=== PATIENT | female | born 1965 | race Caucasian/White ===

== ENCOUNTER 2020-01-14 11:15 | Inpatient (IN) | payer BC, OTHER ==
[~2020-01-14] VITALS: Ht 162.5 cm; Wt 87.5 kg
--- OUTSIDE RECORDS SUMMARY | 2020-01-14 11:21 | XMS REPORT ---
Author Author Su Joy Organization [facility] Address [address] [place], [place] [id number] Care Team Providers Care Inspector And Sorter Name Role Phone Jose Elias Joy PCP SHERITA CORRAL PreferredProvider Allergies and Adverse Reactions Name Reaction Notes Vicodin nausea/vomting Plan of Treatment Planned Activity Comments Planned Date Planned Time Plan/Goal WBC STOOL 05/13/2018 12:00 AM Mammogram, screening, bilateral 05/27/2018 12:00 AM Mammogram, screening, digital with billie 06/19/2019 1 2:00 AM Amylase and lipase panel 09/15/2019 12:00 AM Amylase and lipase panel 09/15/2019 12:00 AM GI PANEL 09/15/2019 12:00 AM Urine culture and sensitivity 09/15/2019 12:00 AM Medications Active Name Start Date Estimated Completion Date SIG Co mments cyclobenzaprine 10 mg oral tablet take 1 tablet (10 mg) by oral route 2 times per day methotrexate sodium 2.5 mg oral tablet TA KE 6 tabs once weekly Zebeta 10 mg oral tablet take 1 tablet (1 0 mg) by oral route once daily losartan 25 mg oral tablet take 1 tablet (25 mg) by oral route once daily Plaquenil 200 mg oral tablet folic acid 1 mg oral tablet take 1 tablet (1 mg) by oral route once daily Protonix 40 mg oral tablet,delayed release (DR/EC) take 1 tablet (40 mg) by oral route once daily hydrochlorothiazide 12.5 mg oral tablet take 1 tablet (12.5 mg) by oral route once daily potassium chloride 10 mEq oral capsule, extended release take 1 capsule (10 meq) by oral route once daily with food with furosemide Enbrel SureClick 50 mg/mL (1 mL) subcutaneous pen injector inject 1 milliliter (50 mg) by subcutaneous route once weekly dicyclomine 20 mg oral tablet 10/04/2019 05/01/2020 ta ke 1 tablet (20 mg) by oral route 4 times per day for 30 days ondansetron 8 mg oral tablet,disintegrating dissolve 1 tablet by oral route every 6 hours as needed for nausea Xofluza 40 mg oral tablet 10/27/2019 take 2 tablets (80 mg) by oral route once alprazolam 0.25 mg oral tablet 11/07/2019 TAKE ONE T ABLET BY MOUTH TWICE DAILY Percocet 5-325 mg oral tablet 11/21/2019 ta ke 1 tablet by oral route every 6 hours as needed for 30 days clonazepam 0.5 mg oral tablet 12/19/2019 1/2 to 1 BI D PRN anxiety Name Start Date Expiration Date SIG Comments naproxen 500 mg oral tablet take 1 tablet by oral route folic acid 20 mg oral capsule take 2 caps ules by oral route daily Percocet 5-325 mg oral tablet 04/19/2014 ta ke 1 - 2 tablets by oral route every 4-6 hours as needed Macrodantin 50 mg oral capsule 09/11/2014 09/18/2014 t cyndi 1 capsule by oral route 3 times a day for 7 days Zithromax Z-Rodney 250 mg oral tablet 09/17/2014 09/22/2014 take 2 tablets (500 mg) by oral route once daily for 1 day then 1 tablet (250 mg) by oral route once daily for 4 days Protonix 20 mg oral tablet,delayed release (DR/EC) take 2 tablets (40 mg) by oral route once daily Zithromax Z-Rodney 250 mg oral tablet 08/11/2016 08/16/2016 take 2 tablets (500 mg) by oral route once daily for 1 day then 1 tablet (250 mg) by oral route once daily for 4 days Medrol (Rodney) 4 mg oral tablets,dose pack 08/11/2016 016 take as directed for 5 days Percocet 7.5-325 mg oral tablet 10/16/2016 take 1 tablet by oral route Q6H PRN pain amitriptyline 50 mg oral tablet 03/25/2017 TAKE 1 TABLET BY ORAL ROUTE EVERY DAY AT BEDTIME fluticasone 50 mcg/actuation nasal spray,suspension 07/07/2017 inhale 1 spray (50 mcg) in each nostril by intranasal route 2 times per day fluconazole 150 mg oral tablet 12/30/2017 t cyndi one tablet today and one tablet in 7 days Xanax 0.5 mg oral tablet 03/30/2018 take 0. 5 tablet by oral route 2 times a day Bactroban Nasal 2 % nasal ointment 03/29/2018 apply one-half of the ointment from the tube into each nostril by topical route 2 times per day in the morning and evening furosemide 40 mg oral tablet take 1 table t (40 mg) by oral route once daily Probiotic 15 billion cell oral capsule 04/26/2018 05/26/2018 take 1 capsule by oral route 2 times a day for 30 days Xifaxan 550 mg oral tablet 05/12/2018 05/26/2018 take 1 tablet (550 mg) by oral route 3 times per day for 14 days sulfasalazine 500 mg oral tablet 06/24/2018 TAKE ONE TABLET BY MOUTH FOUR TIMES DAILY FOR SIX WEEKS alprazolam 0.5 mg oral tablet 09/21/2018 TAKE 1/2 TA BLET BY MOUTH TWICE DAILY Percocet 5-325 mg oral tablet 06/26/2019 07/26/2019 ta ke 1 tablet by oral route every 6 hours as needed for 30 days alosetron 1 mg oral tablet take 1 tablet (1 mg) by oral route 2 times per day Cipro 250 mg oral tablet 09/15/2019 09/29/2019 take 1 tablet (250 mg) by oral route every 12 hours for 14 days Flagyl 500 mg oral tablet 09/15/2019 09/29/2019 take 1 tablet (500 mg) by oral route 3 times per day for 14 days Entocort EC 3 mg oral capsule,delayed,extend.release 10/04/2019 01/02/2020 take 1 by oral route 3 times a day for 90 days Lomotil 2.5-0.025 mg oral tablet 10/04/2019 01/02/2020 take 2 tablets by oral route 4 times a day for 15 days Discontinued Name Start Date Discontinued Date SIG Comments Enbrel 50 mg/mL (0.98 mL) subcutaneous syringe inject 1 milliliter (50 mg) by subcutaneous route once weekly pantoprazole 40 mg oral tablet,delayed release (DR/EC) 06/11/2015 take 1 tablet (40 mg) by oral route once daily Zofran (as hydrochloride) 8 mg oral tablet 04/19/20142014 take 1 tablet by oral route Q6 prn nausea promethazine-codeine 6.25-10 mg/5 mL oral syrup 09/17/2014 06/11/2015 take 5 milliliters by oral route every 4 hours as needed, not to exceed 30 mL in 24 hours Problem List Description Status Onset Arthritis unspecified Active Constipation Active dysphagia Active Fibromyalgia Active Hypercholesterolemia Active Rheumatoid arthritis, involving unspecif ied site, unspecified rheumatoid factor presence Active 11/02/2017 Lumbar disc disease Active 11/02/2017 Nephrolithiasis Active 11/02/2017 Fibromuscular dysplasia Active 11/02/2017 Essential hypertension Active 04/20/2018 Colitis Active 04/26/2018 Irritable bowel syndrome with diarrhea Active 0 05/12/2018 Sebaceous cyst Active 07/26/2018 Inflammatory bowel disease Active 07/26/2018 Arthralgia, unspecified joint Active 11/22/2019 Vital Signs Date Time BP-Sys(mm[Hg] BP-Chery(mm[Hg]) HR(bpm) RR(rpm) Temp WT HT HC BMI BSA BMI Percentile O2 Sat(%) 12/26/2019 2:27:00 PM 138 mm[Hg] 88 mm[Hg] 77 {beats}/min 16 rpm 100.8 F 192.187 lbs 64 in 32.9886 kg/m2 1.984 m2 99 % 12/11/2019 10:36:00 AM 138 mm[Hg] 76 mm[Hg] 77 {beats}/min 16 rpm 98.1 F 204 lbs 64 in 35.02 kg/m2 2.04 m2 96 % 11/21/2019 4:02:00 PM 128 mm[Hg] 64 mm[Hg] 68 {beats}/min 16 rpm 98.4 F 204 lbs 98 % 10/27/2019 8:33:00 AM 132 mm[Hg] 88 mm[Hg] 83 {beats}/min 17 rpm 99.5 F 201 lbs 64 in 34.5012 kg/m2 2.029 m2 97 % 10/04/2019 12:42:00 PM 128 mm[Hg] 71 mm[Hg] 58 {beats}/min 20 rpm 97.2 F 203.5 lbs 64 in 34.9303 kg/m2 2.04 m2 09/15/2019 10:00:00 AM 136 mm[Hg] 74 mm[Hg] 70 {beats}/min 20 rpm 98.8 F 203.25 lbs 64 in 34.89 kg/m2 2.0404 m2 98 % 04/28/2019 3:16:00 PM 142 mm[Hg] 80 mm[Hg] 04/27/2019 8:33:00 AM 154 mm[Hg] 86 mm[Hg] 75 {beats}/min 18 rpm 99 F 209 lbs 64 in 35.87 kg/m2 2.069 m2 99 % 02/28/2019 10:52:00 AM 104 mm[Hg] 70 mm[Hg] 86 {beats}/min 18 rpm 98.1 F 205 lbs 64 in 35.1878 kg/m2 2.05 m2 98 % 02/24/2019 7:24:00 AM 126 mm[Hg] 70 mm[Hg] 78 {beats}/min 18 rpm 98.2 F 207 lbs 64 in 35.53 kg/m2 2.0591 m2 98 % 01/12/2019 1:33:00 PM 122 mm[Hg] 80 mm[Hg] 78 {beats}/min 18 rpm 97.4 F 204 lbs 98 % 08/09/2018 3:53:00 PM 126 mm[Hg] 76 mm[Hg] 62 {beats}/min 20 rpm 98.1 F 204 lbs 64 in 35.0162 kg/m2 2.0441 m2 07/28/2018 1:42:00 PM 126 mm[Hg] 76 mm[Hg] 62 {beats}/min 20 rpm 98.1 F 204.5 lbs 64 in 35.10 kg/m2 2.05 m2 07/26/2018 11:56:00 AM 126 mm[Hg] 76 mm[Hg] 62 {beats}/min 20 rpm 98.1 F 204.5 lbs 64 in 35.102 kg/m2 2.0466 m2 06/03/2018 10:16:00 AM 112 mm[Hg] 62 mm[Hg] 64 {beats}/min 20 rpm 97.2 F 209 lbs 64 in 35.87 kg/m2 2.07 m2 05/09/2018 2:53:00 PM 110 mm[Hg] 68 mm[Hg] 58 {beats}/min 18 rpm 98.2 F 212 lbs 64 in 36.3893 kg/m2 2.0838 m2 98 % 04/26/2018 12:12:00 PM 112 mm[Hg] 61 mm[Hg] 63 {beats}/min 20 rpm 96.9 F 213.5 lbs 64 in 36.65 kg/m2 2.09 m2 04/19/2018 9:35:00 AM 124 mm[Hg] 76 mm[Hg] 84 {beats}/min 18 rpm 98.4 F 215 lbs 64 in 36.9043 kg/m2 2.0985 m2 98 % 04/12/2018 4:07:00 PM 99 mm[Hg] 60 mm[Hg] 70 {beats}/min 18 rpm 97.9 F 216 lbs 98 % 03/25/2018 9:12:00 AM 122 mm[Hg] 80 mm[Hg] 69 {beats}/min 18 rpm 98.1 F 215 lbs 60 in 41.9889 kg/m2 2.0319 m2 98 % 10/26/2017 11:09:00 AM 136 mm[Hg] 78 mm[Hg] 78 {beats}/min 18 rpm 21 7 lbs 64 in 37.25 kg/m2 2.11 m2 98 % 07/05/2017 3:55:00 PM 128 mm[Hg] 80 mm[Hg] 60 {beats}/min 16 rpm 98 F 220 lbs 64 in 37.7625 kg/m2 2.1228 m2 98 % 04/29/2016 8:42:00 AM 132 mm[Hg] 80 mm[Hg] 78 {beats}/min 18 rpm 97.4 F 223 lbs 63 in 39.50 kg/m2 2.12 m2 99 % 04/23/2016 10:00:00 AM 125 mm[Hg] 78 mm[Hg] 68 {beats}/min 16 rpm 96.9 F 220 lbs 63 in 38.9709 kg/m2 2.1061 m2 96 % 11/12/2015 2:33:00 PM 125 mm[Hg] 72 mm[Hg] 80 {beats}/min 16 rpm 97.1 F 232 lbs 64 in 39.82 kg/m2 2.18 m2 100 % 09/27/2015 11:18:00 AM 138 mm[Hg] 80 mm[Hg] 74 {beats}/min 18 rpm 97.5 F 227 lbs 64 in 38.9641 kg/m2 2.1563 m2 99 % 06/11/2015 3:19:00 PM 115 mm[Hg] 68 mm[Hg] 86 {beats}/min 18 rpm 97.9 F 225 lbs 63 in 39.86 kg/m2 2.13 m2 96 % 09/10/2014 3:27:00 PM 140 mm[Hg] 80 mm[Hg] 94 {beats}/min 22 rpm 98.6 F 220 lbs 64 in 37.7625 kg/m2 2.1228 m2 99 % 04/19/2014 9:21:00 AM 150 mm[Hg] 80 mm[Hg] 88 {beats}/min 20 rpm 98.1 F 217 lbs 64 in 37.25 kg/m2 2.11 m2 97 % 04/16/2014 11:06:00 AM 138 mm[Hg] 82 mm[Hg] 99 {beats}/min 18 rpm 98.3 F 217 lbs 64 in 37.2476 kg/m2 2.1082 m2 98 % Social History Name Description Comments denies alcohol use Tobacco Former smoker smoked for 30 years, stopped smoking in 2010 12th Grade Exercises regularly Alcohol Never History of Procedures Date Ordered Description Order Status 04/23/2016 12:00 AM Decadron, Per 1 Mg [facility]# [id number] Re viewed 04/23/2016 12:00 AM Toradol 60 Mg [facility]#9563-4102-03 Reviewed 05/04/2016 12:00 AM MRI LUMBAR SPINE W/O DYE Returned 07/07/2017 12:00 AM REMOVE IMPACTED EAR WAX UNI Reviewed 10/26/2017 12:00 AM Decadron 8mg Injection Reviewed 10/26/2017 12:00 AM Depo-Medrol 80mg Injection Reviewed 11/02/2017 12:00 AM Toradol 60 Mg Injection Reviewed 10/26/2017 12:00 AM THER/PROPH/DIAG INJ SC/IM Reviewed 04/19/2018 12:00 AM COMPLETE CBC W/AUTO DIFF WBC Returned 04/19/2018 12:00 AM COMPREHEN METABOLIC PANEL Returned 04/19/2018 12:00 AM ROUTINE VENIPUNCTURE Reviewed 05/13/2018 12:00 AM OVA AND PARASITES SMEARS Returned 05/13/2018 12:00 AM CLOSTRIDIUM AG EIA Reviewed 06/03/2018 12:00 AM Inflammatory Bowel Disease Profile Revie wed 06/03/2018 12:00 AM IMMUNOASSAY NONANTIBODY Reviewed 01/12/2019 12:00 AM THER/PROPH/DIAG INJ SC/IM Reviewed 01/12/2019 12:00 AM Decadron 8mg Injection Reviewed 01/12/2019 12:00 AM Toradol 60 Mg Injection Reviewed 01/12/2019 12:00 AM Depo-Medrol 80mg Injection Reviewed 02/24/2019 12:00 AM Decadron 8mg Injection Reviewed 02/24/2019 12:00 AM Depo-Medrol 80mg Injection Reviewed 02/24/2019 12:00 AM Toradol 60 Mg Injection Reviewed 02/24/2019 12:00 AM THER/PROPH/DIAG INJ SC/IM Reviewed 02/28/2019 12:00 AM Decadron 8mg Injection Reviewed 02/28/2019 12:00 AM Depo-Medrol 80mg Injection Reviewed 02/28/2019 12:00 AM Toradol 60 Mg Injection Reviewed 03/15/2019 12:00 AM THER/PROPH/DIAG INJ SC/IM Reviewed 04/27/2019 12:00 AM Toradol 60 Mg Injection Reviewed 04/27/2019 12:00 AM THER/PROPH/DIAG INJ SC/IM Reviewed 09/15/2019 12:00 AM X-RAY EXAM OF ABDOMEN Reviewed 09/15/2019 12:00 AM COMPLETE CBC W/AUTO DIFF WBC Reviewed 09/15/2019 12:00 AM COMPREHEN METABOLIC PANEL Reviewed 09/15/2019 12:00 AM RBC SED RATE AUTOMATED Reviewed 09/15/2019 12:00 AM C-REACTIVE PROTEIN Reviewed 09/18/2019 12:[address] ABD & PELV W/CONTRAST Reviewed 09/18/2019 12:00 AM ASSAY THYROID STIM HORMONE Reviewed 09/18/2019 12:00 AM FREE ASSAY (FT-3) Reviewed 09/18/2019 12:00 AM ASSAY OF FREE THYROXINE Reviewed 11/14/2019 11:35 PM INFLUENZA A/B AG EIA Reviewed 11/21/2019 12:00 AM THER/PROPH/DIAG INJ SC/IM Reviewed 11/21/2019 12:00 AM Toradol 30 Mg Injection Reviewed 11/21/2019 12:00 AM Decadron 8mg Injection Reviewed 11/21/2019 12:00 AM Depo-Medrol 80mg Injection Reviewed 11/21/2019 12:00 AM THER/PROPH/DIAG INJ SC/IM Reviewed 12/11/2019 12:00 AM Decadron 8mg Injection Reviewed 12/11/2019 12:00 AM Depo-Medrol 80mg Injection Reviewed 12/11/2019 12:00 AM Toradol 60 Mg Injection Reviewed 12/11/2019 12:00 AM THER/PROPH/DIAG INJ SC/IM Reviewed 12/26/2019 12:00 AM Decadron 8mg Injection Reviewed 12/26/2019 12:00 AM Toradol 60 Mg Injection Reviewed 12/26/2019 12:00 AM THER/PROPH/DIAG INJ SC/IM Reviewed 04/16/2014 12:00 AM URINE BACTERIA CULTURE Reviewed 04/16/2014 12:[address] ABD & PELVIS W/O CONTRAST Reviewed 04/16/2014 11:09 AM URINALYSIS AUTO W/O SCOPE Reviewed 04/19/2014 12:00 AM THER/PROPH/DIAG INJ SC/IM Reviewed 04/19/2014 12:00 AM Toradol 60 Mg N[facility]#0463-1813-88 Reviewed 04/19/2014 12:00 AM Phenergan, Up to 50 Mg [facility]#8224-0204-82 Reviewed 04/16/2014 12:00 AM THER/PROPH/DIAG INJ SC/IM Reviewed 04/16/2014 12:00 AM Toradol 60 Mg NDC#1386-6811-40 Reviewed 04/16/2014 12:00 AM Phenergan, Up to 50 Mg NDC#2518-8184-31 Reviewed 09/10/2014 3:29 PM URINALYSIS AUTO W/O SCOPE Reviewed 09/10/2014 12:00 AM URINALYSIS AUTO W/O SCOPE Reviewed 09/10/2014 12:00 AM URINE BACTERIA CULTURE Reviewed Results Summary Date and Description Results 04/16/2014 11:09 AM Bilirub Ur Ql Strip small Gl ucose Ur-sCnc neg Hgb Ur Ql Strip large Ketones Ur Ql Strip neg Nitrite Ur Ql Strip neg pH Ur-LsCnc 6.0 Prot Ur Ql Strip 100 [place] 1030 Urobilinogen Ur-mCnc 1.0 WBC Est Ur Ql Strip neg 09/10/2014 3:31 PM Bilirub Ur Ql Strip small Gl ucose Ur-sCnc negative Hgb Ur Ql Strip large Ketones Ur Ql Strip trace Nitrite Ur Ql Strip negative pH Ur-LsCnc 5.5 Prot Ur Ql Strip 30 Sp Gr Ur Qn 1.030 Urobilinogen Ur-mCnc 1.0 WBC Est Ur Ql Strip trace 06/06/2018 5:00 PM Deamidated Gliadin Abs,IgA 6 Deamidated Gliadin Abs,IgG 5 t- Transglutaminase (tTG)IgA <2 t-Transglutaminase (tTG)IgG <2 Endomysial Antibody IgA Negative Immunoglobulin A, Qn,Serum 210 Saccharomycescerevisiae, IgG 65.6 Saccharomycescerevisiae, IgA 65.0 Atypical pANCA <1:20 09/15/2019 12:35 PM GLUCOSE 93 SODIUM 141 POTASS IUM 3.1 CHLORIDE 99.0 mmol/LCO2 31 BUN 7.0 mg/dLCREATININE 0.930 mg/dLSGOT/AST 20 SGPT/ALT 15 ALK PHOS 60 TOTAL PROTEIN 7.6 ALBUMIN 4.5 TOTAL BILI 0.7 CALCIUM 9.50 mg/dLAGE 54 GFR NonAA 62 GFR AA 75 eGFR 62 mL/min/1.73meGFR AA* >60 mL/min/1.73mWBC 6.8 RBC 4.43 HGB 13.50 g/dLHCT 40.10 %MCV 91.0 fLMCH 30.50 pgMCHC 33.70 g/dLRDW SD 46 fLRDW CV 14.30 %MPV 11.10 fLPLT 275 x10E3/uLNRBC# 0.00 NRBC% 0.0 %NEUT 66.7 %LYMP 22.7 %MONO 6.8 %EOS 2.8 %BASO 0.6 #NEUT 4.53 #LYMP 1.54 #MONO 0.46 #EOS 0.19 #BASO 0.04 MANUAL DIFF NOT IND C REACTIVE PROTEIN <0.5 mg/LSEDRATE 16 TSH 0.80 FREE T4 1.13 Triiodothyronine (T3),Free 3.4 11/14/2019 11:35 PM Influenza A Positive Influen za B Negative History Of Immunizations Not available. History of Past Illness Name Date of Onset Comments Arthritis unspecified Fibromyalgia dysphagia Cancer Constipation Hypercholesterolemia Rheumatoid arthritis, involving unspecif ied site, unspecified rheumatoid factor presence 11/02/2017 Lumbar disc disease 11/02/2017 Nephrolithiasis 11/02/2017 Fibromuscular dysplasia 11/02/2017 Essential hypertension 04/20/2018 Colitis 04/26/2018 Irritable bowel syndrome with diarrhea 05/12/2018 Sebaceous cyst 07/26/2018 Inflammatory bowel disease 07/26/2018 E coli bacteremia Arthralgia, unspecified joint 11/22/2019 Dysuria Apr 16 2014 10:36AM Flank pain, acute Apr 16 2014 10:43AM Flank pain Apr 19 2014 9:22AM Renal calculi Apr 19 2014 9:22AM Flank pain Apr 16 2014 11:07AM History of renal calculi Apr 16 2014 11:07AM Hematuria Sep 10 2014 3:27PM Dysuria Sep 10 2014 3:27PM Urinary Tract Infection Sep 10 2014 3:27PM History of renal calculi Sep 10 2014 3:27PM Intertrigo Jun 11 2015 3:20PM Tinea cruris Jun 11 2015 3:20PM Chronic Sebaceous Cyst Stable Sep 27 2015 11:19AM Acute pharyngitis, unspecified etiology Nov 12 2015 2:33PM Moderate Acute Post-nasal drainage Nov 12 2015 2:33PM Acute right-sided low back pain with right-sided sciatica 2015 8:43AM Arthralgia of right hip Apr 29 2016 8:43AM History of renal calculi Apr 29 2016 8:43AM Fibromyalgia Apr 29 2016 8:43AM Acute right-sided low back pain without sciatica Apr 23 2016 10:00AM Chronic pain Apr 23 2016 10:00AM Acute hip pain, right Apr 23 2016 10:00AM History of renal calculi Apr 23 2016 10:00AM Fibromyalgia Apr 23 2016 10:00AM Sciatica May 04 2016 11:38AM Acute seasonal allergic rhinitis, unspecified trigger Jul 05 2017 3:55PM Moderate Acute Ear discomfort, bilateral Jul 05 2017 3:55PM Bilateral impacted cerumen Jul 05 2017 3:55PM Bilateral impacted cerumen Jul 07 2017 7:05AM Fibromyalgia Oct 26 2017 11:10AM Essential hypertension Oct 26 2017 11:10AM Unspecified fall, initial encounter Oct 26 2017 11:10AM Unspecified place in unspecified non-ins titutional (private) residence as the place of occurrence of the external cause Oct 26 2017 11:10AM Lumbar disc disease Oct 26 2017 11:10AM Rheumatoid arthritis, involving unspecif ied site, unspecified rheumatoid factor presence Oct 26 2017 11:10AM Moderate Chronic Nephrolithiasis Stable Oct 26 2017 11:10AM Moderate Chronic Fibromuscular dysplasia Stable Oct 26 2017 11:10AM Mild Bilateral Nasal lesion Stable Mar 25 2018 9:15AM Fibromyalgia Mar 25 2018 9:15AM Essential hypertension Mar 25 2018 9:15AM Infectious colitis Apr 12 2018 4:08PM Encounter for examination following treatment at [facility] 2017 4:08PM Anemia Apr 19 2018 9:47AM Hypokalemia Apr 19 2018 9:47AM Severe Resolved Infectious colitis Apr 19 2018 9:36AM Fibromuscular dysplasia Apr 19 2018 9:36AM Rheumatoid arthritis, involving unspecif ied site, unspecified rheumatoid factor presence Apr 19 2018 9:36AM Fibromyalgia Apr 19 2018 9:36AM Essential hypertension Apr 19 2018 9:36AM Colitis Apr 26 2018 12:13PM Irritable bowel syndrome with diarrhea May 09 2018 2:54PM Essential hypertension May 09 2018 2:54PM Fibromuscular dysplasia May 09 2018 2:54PM Rheumatoid arthritis, involving unspecif ied site, unspecified rheumatoid factor presence May 09 2018 2:54PM Current mild episode of major depressive disorder with out prior episode May 09 2018 2:54PM Diarrhea May 13 2018 8:15AM Screening for breast cancer May 27 2018 7:08AM Diarrhea Jun 03 2018 10:18AM Rheumatoid arthritis Jun 03 2018 10:18AM Rectal bleeding Jun 03 2018 10:18AM Abdominal Pain Jun 03 2018 1:40PM Diarrhea Jun 03 2018 1:40PM Crohn disease Jun 20 2018 1:23PM Sebaceous cyst Jul 26 2018 11:57AM Sebaceous cyst Jul 26 2018 11:57AM Inflammatory bowel disease Jul 26 2018 11:57AM Rheumatoid arthritis Jul 26 2018 11:57AM Generalized abdominal pain Jan 12 2019 1:36PM Fibromuscular dysplasia Jan 12 2019 1:36PM Irritable bowel syndrome with diarrhea Jan 12 2019 1:36PM Fibromyalgia Jan 12 2019 1:36PM Acute midline low back pain without sciatica Feb 24 2019 7: 24AM Pain management Feb 24 2019 7:24AM Chronic Fibromuscular dysplasia Feb 24 2019 7:24AM Rheumatoid arthritis, involving unspecif ied site, unspecified rheumatoid factor presence Feb 24 2019 7:24AM History of open reduction and internal fixation (ORIF) procedure Feb 28 2019 10:52AM Pain management Feb 28 2019 10:52AM Cervicalgia Feb 28 2019 10:52AM Moderate Left Jaw pain Apr 27 2019 8:41AM Hypertension, Benign Essential Apr 28 2019 3:15PM Screening for breast cancer Jun 19 2019 3:09PM Periumbilical abdominal pain Sep 15 2019 10:58AM History of colitis Sep 15 2019 10:58AM Diarrhea Sep 15 2019 10:58AM Incontinence Sep 15 2019 10:58AM Leukocytes in urine Sep 15 2019 10:13AM Periumbilical abdominal pain Sep 18 2019 9:26AM Diarrhea Sep 18 2019 9:26AM Periumbilical abdominal pain Sep 15 2019 10:13AM Fecal incontinence Sep 15 2019 10:13AM Abdominal pain Oct 04 2019 12:44PM Diarrhea Oct 04 2019 12:44PM IBD (inflammatory bowel disease) Oct 04 2019 12:44PM IBS (irritable bowel syndrome) Oct 04 2019 12:44PM Influenza A Oct 27 2019 8:40AM Rheumatoid arthritis, involving unspecif ied site, unspecified rheumatoid factor presence Nov 21 2019 4:02PM Fibromyalgia Nov 21 2019 4:02PM Arthralgia, unspecified joint Nov 21 2019 4:02PM Arthralgia, unspecified joint Dec 11 2019 10:37AM Fibromuscular dysplasia Dec 11 2019 10:37AM Rheumatoid arthritis, involving unspecif ied site, unspecified rheumatoid factor presence Dec 11 2019 10:37AM Fibromyalgia Dec 11 2019 10:37AM Grieving Dec 11 2019 10:37AM Other chronic pain Dec 26 2019 2:31PM Rheumatoid arthritis, involving unspecif ied site, unspecified rheumatoid factor presence Dec 26 2019 2:31PM Fibromyalgia Dec 26 2019 2:31PM Medication care plan discussed with patient Dec 26 2019 2:3 1PM IBS (irritable bowel syndrome) Jan 03 2020 10:57AM Depression Jan 03 2020 10:57AM Rheumatoid arthritis Jan 03 2020 10:57AM Payers Insurance Name Company Name Plan Name Plan Number Policy Number [employer] Number Start Date BCBS [facility] [id number] N/ A [facility] [id number] [facility] [id number] N/A [employer] [id number] N/A History of Encounters Visit Date Visit Type Provider 01/03/2020 Office visit Jose Elias Joy DO 12/26/2019 Office visit SHERITA SIMONS 12/11/2019 Office visit SHERITA SIMONS 11/21/2019 Office visit SHERITA SIMONS 10/27/2019 Office visit Bishop Calle [employer]MICAL [employer]LER 10/04/2019 Office visit Jose Elias Joy DO 09/15/2019 Office visit Bishop Calle CHEMICAL HANDLER 04/28/2019 Nurse visit Bishop Calle CHEMICAL HANDLER 04/27/2019 Office visit Bishop Calle CHEMICAL HANDLER 02/28/2019 Office visit SHERITA CORRAL PA 02/24/2019 Office visit SHERITA CORRAL PA 01/12/2019 Office visit SHERITA CORRAL PA 08/09/2018 Procedures Jose Elias Whiteuman DO 07/28/2018 Surgery Jose Elias Bouman DO 07/26/2018 Procedures Jose Elias Bouman DO 06/03/2018 Office visit Jose Elias Bouman DO 05/09/2018 Office visit SHERITA CORRAL PA 04/26/2018 Office visit Jose Elias Bouman DO 04/19/2018 Office visit SHERITA CORRAL PA 04/12/2018 Office visit SHERITA CORRAL PA 04/05/2018 Surgery Jose Elias Joy DO 04/03/2018 [facility] Grant Reyes MD 03/25/2018 Office visit SHERITA SIMONS 10/26/2017 Office visit SHERITA SIMONS 07/07/2017 Office visit SHERITA SIMONS 07/05/2017 Office visit SHERITA SIMONS 04/29/2016 Office visit SHERITA SIMONS 04/23/2016 Office visit SHERITA SIMONS 11/12/2015 Office visit SHERITA SIMONS 09/27/2015 Office visit SHERITA SIMONS 06/11/2015 Office visit SHERITA SIMONS 09/10/2014 Office visit SHERITA SIMONS 04/19/2014 Office visit SHERITA CORRAL PA 04/16/2014 Office visit SHERITA SIMONS
--- OUTSIDE RECORDS SUMMARY | 2020-01-14 11:22 | XMS REPORT ---
Author Author Su CORRAL Organization [facility] Physicians oup Address [address] [place] [id number] Care Team Providers Care Lens Mounter Name Role Phone SHERITA CORRAL PCP SHERITA CORRAL PreferredProvider Allergies and Adverse [...] route once daily with food with furosemide alprazolam 0.5 mg oral tablet 09/21/2018 TAKE 1/2 TA BLET BY MOUTH TWICE DAILY Enbrel SureClick 50 mg/mL (1 mL) subcutaneous pen injector inject 1 milliliter (50 mg) by subcutaneous route once weekly Entocort EC 3 mg oral capsule,delayed,extend.release 10/04/2019 01/02/2020 take 1 by oral route 3 times a day for 90 days dicyclomine 20 mg oral tablet 10/04/2019 05/01/2020 ta ke 1 tablet (20 mg) by oral route 4 times per day for 30 days Lomotil 2.5-0.025 mg oral tablet 10/04/2019 01/02/2020 take 2 tablets by oral route 4 times a day for 15 days ondansetron 8 mg oral tablet,disintegrating dissolve [...] 30 days clonazepam 0.5 mg oral tablet 12/19/201909/21 to 1 BI D PRN anxiety Name [...] (Rodney) 4 mg oral tablets,dose pack 08/11/2016 11/27/2 016 take as directed for 5 days [...] MOUTH FOUR TIMES DAILY FOR SIX WEEKS Percocet 5-325 mg oral tablet 06/26/2019 07/26/2019 [...] 3 times per day for 14 days Discontinued Name Start Date Discontinued Date [...] 04/23/2016 12:00 AM Decadron, Per 1 Mg [facility]# [address]-39 Re viewed 04/23/2016 12:00 AM Toradol 60 Mg [facility]#9726-7386-13 Reviewed 05/04/2016 12:00 AM MRI LUMBAR SPINE [...] Reviewed 04/19/2014 12:00 AM Toradol 60 Mg NDC#4425-1776-05 Reviewed 04/19/2014 12:00 AM Phenergan, Up to 50 Mg NDC#5871-5449-64 Reviewed 04/16/2014 12:00 AM THER/PROPH/DIAG INJ SC/IM Reviewed 04/16/2014 12:00 AM Toradol 60 Mg NDC#4850-6249-16 Reviewed 04/16/2014 12:00 AM Phenergan, Up to 50 Mg NDC#5983-1258-59 Reviewed 09/10/2014 3:29 PM URINALYSIS AUTO W/O [...] 4:08PM Encounter for examination following treatment at [facility] 2017 4:08PM Anemia Apr 19 2018 9:47AM [...] with patient Dec 26 2019 2:3 1PM Payers Insurance Name Company Name Plan Name Plan Number Policy Number Kirk Group Number Start Date [facility] [id number] N/ A [facility] [id number] [facility] [id number] 0 N/A [employer] [id number] N/A History of Encounters Visit Date Visit Type Provider 12/26/2019 Office visit SHERITA SIMONS 12/11/2019 Office visit SHERITA SIMONS 11/21/2019 Office visit SHERITA SIMONS 10/27/2019 Office visit Bishop Calle HADOOP ADMIN 10/04/2019 Office visit Jose Elias Joy DO 09/15/2019 Office visit Bishop Calle HADOOP ADMIN 04/28/2019 Nurse visit Bishop Calle HADOOP ADMIN 04/27/2019 Office visit Bishop Calle HADOOP ADMIN 02/28/2019 Office visit SHERITA SIMONS 02/24/2019 Office visit SHERITA SIMONS 01/12/2019 Office visit SHERITA SIMONS 08/09/2018 Procedures Jose Elias Joy DO 07/28/2018 Surgery Jose Elias Joy DO 07/26/2018 Procedures Jose Elias Joy DO 06/03/2018 Office visit Jose Elias Joy DO 05/09/2018 Office visit SHERITA CORRAL PA 04/26/2018 Office visit Jose Elias Joy DO 04/19/2018 Office visit SHERITA CORRAL PA 04/12/2018 Office visit SHERITA SIMONS 04/05/2018 Surgery Jose Elias Joy DO 04/03/2018 [facility] Grant Reyes MD 03/25/2018 Office visit SHERITA SIMONS 10/26/2017 Office visit SHERITA SIMONS 07/07/2017 Office visit SHERITA SIMONS 07/05/2017 Office visit SHERITA SIMONS 04/29/2016 Office visit SHERITA SIMONS 04/23/2016 Office visit SHERITA SIMONS 11/12/2015 Office visit SHERITA SIMONS 09/27/2015 Office visit SHERITA SIMONS 06/11/2015 Office visit SHERITA SIMONS 09/10/2014 Office visit SHERITA CORRAL PA 04/19/2014 Office visit SHERITA CORRAL PA 04/16/2014 Office visit SHERITA SIMONS
--- OUTSIDE RECORDS SUMMARY | 2020-01-14 11:22 | XMS REPORT ---
Author Author Su CORRAL Organization [facility] Physicians oup Address [address] [place] [phone] Care Team Providers Care Inspector Metal Fabricating Name Role Phone SHERITA CORRAL PCP SHERITA [...] 6 hours as needed for 30 days Name Start Date Expiration Date SIG Comments [...] HC BMI BSA BMI Percentile O2 Sat(%) 12/11/2019 10:36:00 AM 138 mm[Hg] 76 mm[Hg] 77 {beats}/min 16 rpm 98.1 F 204 lbs 64 in 35.0162 kg/m2 2.0441 m2 96 % 11/21/2019 4:02:00 PM 128 mm[Hg] 64 mm[Hg] 68 {beats}/min 16 rpm 98.4 F 204 lbs 98 % 10/27/2019 8:33:00 AM 132 mm[Hg] 88 mm[Hg] 83 {beats}/min 17 rpm 99.5 F 201 lbs 64 in 34.5012 kg/m2 2.029 m2 97 % 10/04/2019 12:42:00 PM 128 mm[Hg] 71 mm[Hg] 58 {beats}/min 20 rpm 97.2 F 203.5 lbs 64 in 34.93 kg/m2 2.04 m2 09/15/2019 10:00:00 AM 136 [...] 04/23/2016 12:00 AM Decadron, Per 1 Mg [facility]# [address]-26 Re viewed 04/23/2016 12:00 AM Toradol 60 Mg [facility]#2213-2986-07 Reviewed 05/04/2016 12:00 AM MRI LUMBAR SPINE [...] 12/11/2019 12:00 AM THER/PROPH/DIAG INJ SC/IM Reviewed 04/16/2014 12:00 AM URINE BACTERIA CULTURE Reviewed 04/16/2014 12:[address] ABD & PELVIS W/O CONTRAST Reviewed 04/16/2014 11:09 AM URINALYSIS AUTO W/O SCOPE Reviewed 04/19/2014 12:00 AM THER/PROPH/DIAG INJ SC/IM Reviewed 04/19/2014 12:00 AM Toradol 60 Mg [facility]#0833-8093-32 Reviewed 04/19/2014 12:00 AM Phenergan, Up to 50 Mg N[facility]#9339-0432-14 Reviewed 04/16/2014 12:00 AM THER/PROPH/DIAG INJ SC/IM Reviewed 04/16/2014 12:00 AM Toradol 60 Mg [facility]#8071-4542-90 Reviewed 04/16/2014 12:00 AM Phenergan, Up to 50 Mg N[facility]#1398-4581-04 Reviewed 09/10/2014 3:29 PM URINALYSIS AUTO W/O [...] 4:08PM Encounter for examination following treatment at [facility] 2017 4:08PM Anemia Apr 19 2018 9:47AM [...] 2019 10:37AM Grieving Dec 11 2019 10:37AM Payers Insurance Name Company Name Plan Name Plan Number Policy Number Kirk cy Group Number Start Date BCBS [facility] [id number] N/ A [facility] [address] [facility] [id number] 0 N/A [employer] [id number] N/A History of Encounters Visit Date Visit Type Provider 12/11/2019 Office visit SHERITA SIMONS 11/21/2019 Office visit SHERITA SIMONS 10/27/2019 Office visit Bishop Calle TUCKING MACHINE OPERATOR 10/04/2019 Office visit Jose Elias Joy DO 09/15/2019 Office visit Bishop Calle TUCKING MACHINE OPERATOR 04/28/2019 Nurse visit Bishop Calle TUCKING MACHINE OPERATOR 04/27/2019 Office visit Bishop Calle TUCKING MACHINE OPERATOR 02/28/2019 Office visit SHERITA SIMONS 02/24/2019 Office visit SHERITA SMIONS 01/12/2019 Office visit SHERITA SIMONS 08/09/2018 Procedures Jose Elias Bouman DO 07/28/2018 Surgery Jose Elias Christopheruman DO 07/26/2018 Procedures Jose Elias Bouman DO 06/03/2018 Office visit Jose Elias Joy DO 05/09/2018 Office visit SHERITA SIMONS 04/26/2018 Office visit Jose Elias Joy DO 04/19/2018 Office visit SHERITA SIMONS 04/12/2018 Office visit SHERITA SIMONS 04/05/2018 Surgery Jose Elias Bouman DO 04/03/2018 Hospital Grant Reyes MD 03/25/2018 Office visit SHERITA SIMONS 10/26/2017 Office visit SHERITA SIMONS 07/07/2017 Office visit SHERITA SIMONS 07/05/2017 Office visit SHERITA SIMONS 04/29/2016 Office visit SHERITA SIMONS 04/23/2016 Office visit SHERITA SIMONS 11/12/2015 Office visit SHERITA SIMONS 09/27/2015 Office visit SHERITA CORRAL PA 06/11/2015 Office visit SHERITA SIMONS 09/10/2014 Office visit SHERITA SIMONS 04/19/2014 Office visit SHERITA CORRAL PA 04/16/2014 Office visit SHERITA SIMONS
--- OUTSIDE RECORDS SUMMARY | 2020-01-14 11:22 | XMS REPORT ---
Author Author Su CORRAL Organization [facility] Physicians oup Address [address] [place] [phone] Care Team Providers Care Collar Cutter Name Role Phone SHERITA CORRAL PCP SHERITA [...] HC BMI BSA BMI Percentile O2 Sat(%) 11/21/2019 4:02:00 PM 128 mm[Hg] 64 mm[Hg] [...] 04/23/2016 12:00 AM Decadron, Per 1 Mg [facility]# [address]-42 Re viewed 04/23/2016 12:00 AM Toradol 60 Mg [facility]#3075-8016-15 Reviewed 05/04/2016 12:00 AM MRI LUMBAR SPINE [...] 11/21/2019 12:00 AM THER/PROPH/DIAG INJ SC/IM Reviewed 04/16/2014 12:00 AM URINE BACTERIA CULTURE Reviewed 04/16/2014 12:[address] ABD & PELVIS W/O CONTRAST Reviewed 04/16/2014 11:09 AM URINALYSIS AUTO W/O SCOPE Reviewed 04/19/2014 12:00 AM THER/PROPH/DIAG INJ SC/IM Reviewed 04/19/2014 12:00 AM Toradol 60 Mg [facility]#1250-5600-26 Reviewed 04/19/2014 12:00 AM Phenergan, Up to 50 Mg [facility]#9120-9502-25 Reviewed 04/16/2014 12:00 AM THER/PROPH/DIAG INJ SC/IM Reviewed 04/16/2014 12:00 AM Toradol 60 Mg [facility]#2667-0086-86 Reviewed 04/16/2014 12:00 AM Phenergan, Up to 50 Mg [facility]#5436-6754-25 Reviewed 09/10/2014 3:29 PM URINALYSIS AUTO W/O [...] 4:08PM Encounter for examination following treatment at [facility] 2017 4:08PM Anemia Apr 19 2018 [...] Arthralgia, unspecified joint Nov 21 2019 4:02PM Payers Insurance Name Company Name Plan Name Plan Number Policy Number Kirk cy Group Number Start Date [facility] [id number] N/ A [facility] [id number] [facility] [id number] N/A [employer] [id number] N/A History of Encounters Visit Date Visit Type Provider 11/21/2019 Office visit SHERITA SIMONS 10/27/2019 Office visit Bishop Calle RETRIEVAL SPECIALIST 10/04/2019 Office visit Jose Elias Joy DO 09/15/2019 Office visit Bishop Calle RETRIEVAL SPECIALIST 04/28/2019 Nurse visit Bishop Calle RETRIEVAL SPECIALIST 04/27/2019 Office visit Bishop Calle RETRIEVAL SPECIALIST 02/28/2019 Office visit SHERITA CORRAL PA 02/24/2019 Office visit SHERITA CORRAL PA 01/12/2019 Office visit SHERITA CORRAL PA 08/09/2018 Procedures Jose Elias Bouman DO 07/28/2018 Surgery Jose Elias Bouman DO 07/26/2018 Procedures Jose Elias Bouman DO 06/03/2018 Office visit Jose Elias Bouman DO 05/09/2018 Office visit SHERITA CORRAL PA 04/26/2018 Office visit Jose Elias Bouman DO 04/19/2018 Office visit SHERITA SIMONS 04/12/2018 Office visit SHERITA SIMONS 04/05/2018 Surgery Jose Elias Bouman DO 04/03/2018 [facility] Grant Reyes MD 03/25/2018 Office visit SHERITA SIMONS 10/26/2017 Office visit SHERITA SIMONS 07/07/2017 Office visit SHERITA SIMONS 07/05/2017 Office visit SHERITA SIMONS 04/29/2016 Office visit SHERITA SIMONS 04/23/2016 Office visit SHERITA SIMONS 11/12/2015 Office visit SHERITA SIMONS 09/27/2015 Office visit SHERITA SIMONS 06/11/2015 Office visit SHERITA SIMONS 09/10/2014 Office visit SHERITA SIMONS 04/19/2014 Office visit SHERITA SIMONS 04/16/2014 Office visit SHERITA SIMONS
--- OUTSIDE RECORDS SUMMARY | 2020-01-14 11:23 | XMS REPORT ---
Author Author Su Calle Organization [facility] Physicians oup Address [address] [place], [place] [phone] Care Team Providers Care Circuit Walker Name Role Phone Bishop Calle PCP SHERITA CORRAL PreferredProvider Allergies and Adverse [...] (50 mg) by subcutaneous route once weekly Percocet 5-325 mg oral tablet 09/27/2019 ta ke 1 tablet by oral route every 6 hours as needed for 30 days Entocort EC 3 mg oral capsule,delayed,extend.release [...] ONE T ABLET BY MOUTH TWICE DAILY Name Start Date Expiration Date SIG Comments [...] Active 07/26/2018 Inflammatory bowel disease Active 07/26/2018 Vital Signs Date Time BP-Sys(mm[Hg] BP-Chery(mm[Hg]) HR(bpm) RR(rpm) Temp WT HT HC BMI BSA BMI Percentile O2 Sat(%) 10/27/2019 8:33:00 AM 132 mm[Hg] 88 mm[Hg] 83 {beats}/min 17 rpm 99.5 F 201 lbs 64 in 34.5012 kg/m2 2.029 m2 97 % 10/04/2019 12:42:00 PM 128 mm[Hg] 71 mm[Hg] 58 {beats}/min 20 rpm 97.2 F 203.5 lbs 64 in 34.93 kg/m2 2.04 m2 09/15/2019 10:00:00 AM 136 mm[Hg] 74 mm[Hg] 70 {beats}/min 20 rpm 98.8 F 203.25 lbs 64 in 34.89 kg/m2 2.04 m2 98 % 04/28/2019 3:16:00 PM 142 mm[Hg] 80 mm[Hg] 04/27/2019 8:33:00 AM 154 mm[Hg] 86 mm[Hg] 75 {beats}/min 18 rpm 99 F 209 lbs 64 in 35.87 kg/m2 2.07 m2 99 % 02/28/2019 10:52:00 AM 104 mm[Hg] 70 mm[Hg] 86 {beats}/min 18 rpm 98.1 F 205 lbs 64 in 35.1878 kg/m2 2.0491 m2 98 % 02/24/2019 7:24:00 AM 126 mm[Hg] 70 mm[Hg] 78 {beats}/min 18 rpm 98.2 F 207 lbs 64 in 35.53 kg/m2 2.06 m2 98 % 01/12/2019 1:33:00 PM 122 [...] 04/23/2016 12:00 AM Decadron, Per 1 Mg [facility]# [address]-57 Re viewed 04/23/2016 12:00 AM Toradol 60 Mg [facility]#6615-5284-37 Reviewed 05/04/2016 12:00 AM MRI LUMBAR SPINE [...] 11:35 PM INFLUENZA A/B AG EIA Reviewed 04/16/2014 12:00 AM URINE BACTERIA CULTURE Reviewed 04/16/2014 12:[address] ABD & PELVIS W/O CONTRAST Reviewed 04/16/2014 11:09 AM URINALYSIS AUTO W/O SCOPE Reviewed 04/19/2014 12:00 AM THER/PROPH/DIAG INJ SC/IM Reviewed 04/19/2014 12:00 AM Toradol 60 Mg [facility]#9170-2396-86 Reviewed 04/19/2014 12:00 AM Phenergan, Up to 50 Mg [facility]#9651-3696-07 Reviewed 04/16/2014 12:00 AM THER/PROPH/DIAG INJ SC/IM Reviewed 04/16/2014 12:00 AM Toradol 60 Mg N[facility]#5662-2143-95 Reviewed 04/16/2014 12:00 AM Phenergan, Up to 50 Mg [facility]#5573-0849-68 Reviewed 09/10/2014 3:29 PM URINALYSIS AUTO W/O [...] Inflammatory bowel disease 07/26/2018 E coli bacteremia Dysuria Apr 16 2014 10:36AM Flank pain, [...] 4:08PM Encounter for examination following treatment at [facility] 2017 4:08PM Anemia Apr 19 2018 [...] 12:44PM Influenza A Oct 27 2019 8:40AM Payers Insurance Name Company Name Plan Name Plan Number Policy Number [employer] Group Number Start Date BCBS [facility] [id number] N/ A [facility] [address] [facility] [id number] N/A [employer] [id number] N/A History of Encounters Visit Date Visit Type Provider 10/27/2019 Office visit Bishop Calle NEWSPAPER JOURNALIST 10/04/2019 Office visit Jose Elias Joy DO 09/15/2019 Office visit Bishop Calle NEWSPAPER JOURNALIST 04/28/2019 Nurse visit Bishop Calle NEWSPAPER JOURNALIST 04/27/2019 Office visit Bishop Calle NEWSPAPER JOURNALIST 02/28/2019 Office visit SHERITA SIMONS 02/24/2019 Office [...] 04/05/2018 Surgery Jose Elias Joy DO 04/03/2018 Hospital Grant Reyes MD 03/25/2018 Office visit SHERITA SIMONS 10/26/2017 Office visit SHERITA CORRAL PA 07/07/2017 Office visit SHERITA SIMONS 07/05/2017 Office visit SHERITA CORRAL PA 04/29/2016 Office visit SHERITA CORRAL PA 04/23/2016 Office visit SHERITA CORRAL PA 11/12/2015 Office visit SHERITA SIMONS 09/27/2015 Office visit SHERITA CORRAL PA 06/11/2015 Office visit SHERITA SIMONS 09/10/2014 Office visit SHERITA SIMONS 04/19/2014 Office visit SHERITA CORRAL PA 04/16/2014 Office visit SHERITA CORRAL PA
--- OUTSIDE RECORDS SUMMARY | 2020-01-14 11:23 | XMS REPORT ---
Author Author Su Calle Organization [facility] Physicians oup Address [address] [place], [place] [address] Care Team Providers Care Director Of The Biophysics Facility Name Role Phone Bishop Calle PCP SHERITA [...] 04/23/2016 12:00 AM Decadron, Per 1 Mg [facility]# [address]-91 Re viewed 04/23/2016 12:00 AM Toradol 60 Mg [facility]#7565-7601-94 Reviewed 05/04/2016 12:00 AM MRI LUMBAR SPINE [...] 12:00 AM ASSAY OF FREE THYROXINE Reviewed 04/16/2014 12:00 AM URINE BACTERIA CULTURE Reviewed 04/16/2014 12:[address] ABD & PELVIS W/O CONTRAST Reviewed 04/16/2014 11:09 AM URINALYSIS AUTO W/O SCOPE Reviewed 04/19/2014 12:00 AM THER/PROPH/DIAG INJ SC/IM Reviewed 04/19/2014 12:00 AM Toradol 60 Mg [facility]#0482-4095-63 Reviewed 04/19/2014 12:00 AM Phenergan, Up to 50 Mg [facility]#0643-7576-60 Reviewed 04/16/2014 12:00 AM THER/PROPH/DIAG INJ SC/IM Reviewed 04/16/2014 12:00 AM Toradol 60 Mg [facility]#3998-4678-99 Reviewed 04/16/2014 12:00 AM Phenergan, Up to 50 Mg [facility]#3284-8658-07 Reviewed 09/10/2014 3:29 PM URINALYSIS AUTO W/O [...] 0.80 FREE T4 1.13 Triiodothyronine (T3),Free 3.4 History Of Immunizations Not available. History of [...] right-sided low back pain with right-sided sciatica Au 2015 8:43AM Arthralgia of right hip Apr [...] 4:08PM Encounter for examination following treatment at [facility] 2017 4:08PM Anemia Apr 19 2018 9:47AM [...] (irritable bowel syndrome) Oct 04 2019 12:44PM Payers Insurance Name Company Name Plan Name Plan Number Policy Number Kirk cy Group Number Start Date BCBS [facility] [id number] N/ A [facility] [id number] [facility] [id number] 0 N/A [employer] [id number] N/A History of Encounters Visit Date Visit Type Provider 10/27/2019 Office visit Bishop Calle CREDIT CONTROL MANAGER 10/04/2019 Office visit Jose Elias Joy DO 09/15/2019 Office visit Bishop Calle CREDIT CONTROL MANAGER 04/28/2019 Nurse visit Bishop Calle CREDIT CONTROL MANAGER 04/27/2019 Office visit Bishop Calle CREDIT CONTROL MANAGER 02/28/2019 Office visit SHERITA SIMONS 02/24/2019 Office visit SHERITA SIMONS 01/12/2019 Office visit SHERITA SIMONS 08/09/2018 Procedures Jose Elias Christopheruman DO 07/28/2018 Surgery Jose Elias Joy DO 07/26/2018 Procedures Jose Elias Bouman DO 06/03/2018 Office visit Jose Elias Joy DO 05/09/2018 Office visit SHERITA SIMONS 04/26/2018 Office visit Jose Elias Joy DO 04/19/2018 Office visit SHERITA SIMONS 04/12/2018 Office visit SHERITA SIMONS 04/05/2018 Surgery Jose Elias Bouman DO 04/03/2018 [facility] Grant Reyes MD 03/25/2018 Office visit SHERITA SIMONS 10/26/2017 Office visit SHERITA SIMONS 07/07/2017 Office visit SHERITA CORRAL PA 07/05/2017 Office visit SHERITA CORRAL PA 04/29/2016 Office visit SHERITA CORRAL PA 04/23/2016 Office visit SHERITA CORRAL PA 11/12/2015 Office visit SHERITA CORRAL PA 09/27/2015 Office visit SHERITA CORRAL PA 06/11/2015 Office visit SHERITA CORRAL PA 09/10/2014 Office visit SHERITA CORRAL PA 04/19/2014 Office visit SHERITA CORRAL PA 04/16/2014 Office visit SHERITA CORRAL PA
--- OUTSIDE RECORDS SUMMARY | 2020-01-14 11:23 | XMS REPORT ---
Author Author Su CORRAL Organization [facility] Physicians oup Address [address] [place] [id number] Care Team Providers Care Hair Boiler Name Role Phone SHERITA CORRAL PCP SHERITA [...] Per 1 Mg [facility]# [address]-10 Re viewed 04/23/2016 12:00 AM Toradol 60 Mg [facility]#9523-1027-39 Reviewed 05/04/2016 12:00 AM MRI LUMBAR SPINE [...] THER/PROPH/DIAG INJ SC/IM Reviewed 11/21/2019 12:00 AM THER/PROPH/DIAG INJ SC/IM Reviewed 04/16/2014 12:00 AM URINE BACTERIA CULTURE Reviewed 04/16/2014 12:[address] ABD & PELVIS W/O CONTRAST Reviewed 04/16/2014 11:09 AM URINALYSIS AUTO W/O SCOPE Reviewed 04/19/2014 12:00 AM THER/PROPH/DIAG INJ SC/IM Reviewed 04/19/2014 12:00 AM Toradol 60 Mg [facility]#6001-5300-83 Reviewed 04/19/2014 12:00 AM Phenergan, Up to 50 Mg [facility]#3051-2833-67 Reviewed 04/16/2014 12:00 AM THER/PROPH/DIAG INJ SC/IM Reviewed 04/16/2014 12:00 AM Toradol 60 Mg [facility]#2231-2449-34 Reviewed 04/16/2014 12:00 AM Phenergan, Up to 50 Mg [facility]#0302-6587-96 Reviewed 09/10/2014 3:29 PM URINALYSIS AUTO W/O [...] 4:08PM Encounter for examination following treatment at [facility] 2017 4:08PM Anemia Apr 19 2018 [...] Number [employer] Group [id number] A [facility] [id number] [facility] [id number] 0 N/A [employer] [id number] N/A History of Encounters Visit Date Visit Type Provider 11/21/2019 Office visit SHERITA SIMONS 10/27/2019 Office visit Bishop Calle CHROMIUM PLATER 10/04/2019 Office visit Jose Elias Joy DO 09/15/2019 Office visit Bishop Calle CHROMIUM PLATER 04/28/2019 Nurse visit Bishop Calle CHROMIUM PLATER 04/27/2019 Office visit Bishop Hansen Luc CHROMIUM PLATER 02/28/2019 Office visit SHERITA SIMONS 02/24/2019 Office visit SHERITA CORRAL PA 01/12/2019 Office visit SHERITA CORRAL PA 08/09/2018 Procedures Jose Elias Bouman DO 07/28/2018 Surgery Jose Elias Bouman DO 07/26/2018 Procedures Jose Elias Bouman DO 06/03/2018 Office visit Jose Elias Bouman DO 05/09/2018 Office visit SHERITA CORRAL PA 04/26/2018 Office visit Jose Elias Whiteuman DO 04/19/2018 Office visit SHERITA CORRAL PA [...] SHERITA CORRAL PA 04/19/2014 Office visit SHERITA SIMONS 04/16/2014 Office visit SHERITA SIMONS
--- OUTSIDE RECORDS SUMMARY | 2020-01-14 11:24 | XMS REPORT ---
Author Author Su Calle Organization [facility] Address [address] [place], [place] [address] Care Team Providers Care Servicer Travel Trailers Name Role Phone Bishop Calle PCP SHERITA CORRAL PreferredProvider Allergies and Adverse Reactions Name Reaction Notes Vicodin nausea/vomting Plan of Treatment Planned Activity Comments Planned Date Planned Time Plan/Goal WBC STOOL 05/13/2018 12:00 AM Mammogram, screening, bilateral 05/27/2018 12:00 AM Medications Active Name Start Date [...] once daily Plaquenil 200 mg oral tablet fluticasone 50 mcg/actuation nasal spray,suspension 07/07/2017 inhale 1 spray (50 mcg) in each nostril by intranasal route 2 times per day Xanax 0.5 mg oral tablet 03/30/2018 take 0. 5 tablet by oral route 2 times a day folic acid 1 mg oral tablet take 1 tablet (1 mg) by oral route once daily Protonix 40 mg oral tablet,delayed release (DR/EC) take 1 tablet (40 mg) by oral route once daily hydrochlorothiazide 12.5 mg oral tablet take 1 tablet (12.5 mg) by oral route once daily furosemide 40 mg oral tablet take 1 table t (40 mg) by oral route once daily potassium chloride 10 mEq oral capsule, extended release take 1 capsule (10 meq) by oral route once daily with food with furosemide alprazolam 0.5 mg oral tablet 09/21/2018 TAKE /2 TA BLET BY MOUTH TWICE DAILY Name Start Date [...] BY ORAL ROUTE EVERY DAY AT BEDTIME fluconazole 150 mg oral tablet 12/30/2017 t cyndi one tablet today and one tablet in 7 days Bactroban Nasal 2 % nasal ointment 03/29/2018 apply one-half of the ointment from the tube into each nostril by topical route 2 times per day in the morning and evening Probiotic 15 billion cell oral capsule 04/26/2018 [...] SIX WEEKS Percocet 5-325 mg oral tablet 02/24/2019 03/26/2019 ta ke 1 tablet by oral route every 6 hours as needed for 30 days Discontinued Name Start Date Discontinued Date [...] HC BMI BSA BMI Percentile O2 Sat(%) 04/27/2019 8:33:00 AM 154 mmHg 86 mmHg 75 bpm 18 rpm 99 F 209 lbs 64 in 35.8744 kg/m 2.069 m 99 % 02/28/2019 10:52:00 AM 104 mmHg 70 mmHg 86 bpm 18 rpm 98.1 F 205 lbs 64 in 35.19 kg/m2 2.05 m2 98 % 02/24/2019 7:24:00 AM 126 mmHg 70 mmHg 78 bpm 18 rpm 98.2 F 207 lbs 64 in 35.5311 kg/m 2.0591 m 98 % 01/12/2019 1:33:00 PM 122 mmHg 80 mmHg 78 bpm 18 rpm 97.4 F 204 lbs 98 % 08/09/2018 3:53:00 PM 126 mmHg 76 mmHg 62 bpm 20 rpm 98.1 F 204 lbs 64 in 35.0162 kg/m 2.0441 m 07/28/2018 1:42:00 PM 126 mmHg 76 mmHg 62 bpm 20 rpm 98.1 F 204.5 lbs 64 in 35.10 kg/m2 2.05 m2 07/26/2018 11:56:00 AM 126 mmHg 76 mmHg 62 bpm 20 rpm 98.1 F 204.5 lbs 64 i n 35.102 kg/m 2.0466 m 06/03/2018 10:16:00 AM 112 mmHg 62 mmHg 64 bpm 20 rpm 97.2 F 209 lbs 64 in 35.87 kg/m2 2.07 m2 05/09/2018 2:53:00 PM 110 mmHg 68 mmHg 58 bpm 18 rpm 98.2 F 212 lbs 64 in 36.3893 kg/m 2.0838 m 98 % 04/26/2018 12:12:00 PM 112 mmHg 61 mmHg 63 bpm 20 rpm 96.9 F 213.5 lbs 64 in 36.65 kg/m2 2.09 m2 04/19/2018 9:35:00 AM 124 mmHg 76 mmHg 84 bpm 18 rpm 98.4 F 215 lbs 64 in 36.9043 kg/m 2.0985 m 98 % 04/12/2018 4:07:00 PM 99 mmHg 60 mmHg 70 bpm 18 rpm 97.9 F 216 lbs 98 % 03/25/2018 9:12:00 AM 122 mmHg 80 mmHg 69 bpm 18 rpm 98.1 F 215 lbs 60 in 41.9889 kg/m 2.0319 m 98 % 10/26/2017 11:09:00 AM 136 mmHg 78 mmHg 78 bpm 18 rpm 217 lbs 64 in 37.25 kg/m2 2.11 m2 98 % 07/05/2017 3:55:00 PM 128 mmHg 80 mmHg 60 bpm 16 rpm 98 F 220 lbs 64 in 37.7625 kg/m 2.1228 m 98 % 04/29/2016 8:42:00 AM 132 mmHg 80 mmHg 78 bpm 18 rpm 97.4 F 223 lbs 63 in 39.50 kg/m2 2.12 m2 99 % 04/23/2016 10:00:00 AM 125 mmHg 78 mmHg 68 bpm 16 rpm 96.9 F 220 lbs 63 in 38.9709 kg/m 2.1061 m 96 % 11/12/2015 2:33:00 PM 125 mmHg 72 mmHg 80 bpm 16 rpm 97.1 F 232 lbs 64 in 39.82 kg/m2 2.18 m2 100 % 09/27/2015 11:18:00 AM 138 mmHg 80 mmHg 74 bpm 18 rpm 97.5 F 227 lbs 64 in 38.9641 kg/m 2.1563 m 99 % 06/11/2015 3:19:00 PM 115 mmHg 68 mmHg 86 bpm 18 rpm 97.9 F 225 lbs 63 in 39.86 kg/m2 2.13 m2 96 % 09/10/2014 3:27:00 PM 140 mmHg 80 mmHg 94 bpm 22 rpm 98.6 F 220 lbs 64 in 37.7625 kg/m 2.1228 m 99 % 04/19/2014 9:21:00 AM 150 mmHg 80 mmHg 88 bpm 20 rpm 98.1 F 217 lbs 64 in 37.25 kg/m2 2.11 m2 97 % 04/16/2014 11:06:00 AM 138 mmHg 82 mmHg 99 bpm 18 rpm 98.3 F 217 lbs 64 in 37.2476 kg/m 2.1082 m 98 % Social History Name Description Comments denies alcohol use Tobacco Former smoker smoked for 30 years, stopped smoking in 2010 12th Grade Exercises regularly Alcohol Never History of Procedures Date Ordered Description Order Status 04/23/2016 12:00 AM Decadron, Per 1 Mg [facility]# [address]-29 Re viewed 04/23/2016 12:00 AM Toradol 60 Mg [facility]#2800-[address]-16 Reviewed 05/04/2016 12:00 AM MRI LUMBAR SPINE [...] THER/PROPH/DIAG INJ SC/IM Reviewed 04/27/2019 12:00 AM THER/PROPH/DIAG INJ SC/IM Reviewed 04/16/2014 12:00 AM URINE BACTERIA CULTURE Reviewed 04/16/2014 12:[address] ABD & PELVIS W/O CONTRAST Reviewed 04/16/2014 11:09 AM URINALYSIS AUTO W/O SCOPE Reviewed 04/19/2014 12:00 AM THER/PROPH/DIAG INJ SC/IM Reviewed 04/19/2014 12:00 AM Toradol 60 Mg [facility]#3578-4084-26 Reviewed 04/19/2014 12:00 AM Phenergan, Up to 50 Mg [facility]#6755-6652-81 Reviewed 04/16/2014 12:00 AM THER/PROPH/DIAG INJ SC/IM Reviewed 04/16/2014 12:00 AM Toradol 60 Mg [facility]#5489-2433-52 Reviewed 04/16/2014 12:00 AM Phenergan, Up to 50 Mg [facility]#3421-5424-77 Reviewed 09/10/2014 3:29 PM URINALYSIS AUTO W/O [...] 65.6 Saccharomycescerevisiae, IgA 65.0 Atypical pANCA <1:20 History Of Immunizations Not available. History of [...] 4:08PM Encounter for examination following treatment at [facility] 2017 4:08PM Anemia Apr 19 2018 [...] Left Jaw pain Apr 27 2019 8:41AM Payers Insurance Name Company Name Plan Name Plan Number Policy Number Kirk cy Group Number Start Date BCBS [facility] [id number] N/ A [facility] [address] [facility] [id number] 0 N/A [employer] [id number] N/A History of Encounters Visit Date Visit Type Provider 04/27/2019 Office visit Bishop Calle SUPERSONIC ENGINEER 02/28/2019 Office visit SHREITA SIMONS 02/24/2019 Office visit SHERITA SIMONS 01/12/2019 [...] 04/05/2018 Surgery Jose Elias Joy DO 04/03/2018 [facility] Grant Reyes MD 03/25/2018 Office visit SHERITA SIMONS 10/26/2017 Office visit SHERITA CORRAL PA 07/07/2017 Office visit SHERITA CORRAL PA 07/05/2017 Office visit SHERITA SIMONS 04/29/2016 Office visit SHERITA SIMONS 04/23/2016 Office visit SHERITA CORRAL PA 11/12/2015 Office visit SHERITA SIMONS 09/27/2015 Office visit SHERITA SIMONS 06/11/2015 Office visit SHERITA SIMONS 09/10/2014 Office visit SHERITA SIMONS 04/19/2014 Office visit SHERITA CORRAL PA 04/16/2014 Office visit SHERITA CORRAL PA
--- OUTSIDE RECORDS SUMMARY | 2020-01-14 11:24 | XMS REPORT ---
Author Author Su Calle Organization [facility] Address [address] [place], [place] [address] Care Team Providers Care Jacquard Loom Fixer Name Role Phone Bishop Calle PCP SHERITA [...] 1/2 TA BLET BY MOUTH TWICE DAILY Name [...] HC BMI BSA BMI Percentile O2 Sat(%) 04/28/2019 3:16:00 PM 142 mmHg 80 mmHg 04/27/2019 8:33:00 AM 154 mmHg 86 mmHg [...] [facility]# [address]-84 Re viewed 04/23/2016 12:00 AM Toradol 60 Mg [facility]#1621-4071-15 Reviewed 05/04/2016 12:00 AM MRI LUMBAR SPINE [...] Reviewed 04/19/2014 12:00 AM Toradol 60 Mg [place]#7464-8868-42 Reviewed 04/19/2014 12:00 AM Phenergan, Up to 50 Mg [facility]#6945-9130-71 Reviewed 04/16/2014 12:00 AM THER/PROPH/DIAG INJ SC/IM Reviewed 04/16/2014 12:00 AM Toradol 60 Mg [facility]#6774-6056-36 Reviewed 04/16/2014 12:00 AM Phenergan, Up to 50 Mg [facility]#9247-0378-74 Reviewed 09/10/2014 3:29 PM URINALYSIS AUTO W/O [...] 4:08PM Encounter for examination following treatment at [facility] 2017 4:08PM Anemia Apr 19 2018 9:47AM [...] Hypertension, Benign Essential Apr 28 2019 3:15PM Payers Insurance Name Company Name Plan Name Plan Number Policy Number Kirk cy Group Number Start Date BCBS [facility] [id number] N/ A [facility] [id number] [facility] [id number] N/A [employer] [id number] N/A History of Encounters Visit Date Visit Type Provider 04/28/2019 Nurse visit Bishop Calle PRINCIPAL WEB DEVELOPER 04/27/2019 Office visit Bishop Calle PRINCIPAL WEB DEVELOPER 02/28/2019 Office visit SHERITA SIMONS 02/24/2019 Office [...] 04/05/2018 Surgery Jose Elias Joy DO 04/03/2018 [facility] Grant Ryees MD 03/25/2018 Office visit SHERITA CORRAL PA 10/26/2017 Office visit SHERITA SIMONS 07/07/2017 Office [...]
--- OUTSIDE RECORDS SUMMARY | 2020-01-14 11:24 | XMS REPORT ---
Author Author Su Calle Organization [facility] Address [address] [place], [place] [address] Care Team Providers Care Storm Chaser Name Role Phone Bishpo Calle PCP SHERITA CORRAL PreferredProvider Allergies and [...] tablets (80 mg) by oral route once Name Start Date Expiration Date SIG Comments [...] 04/23/2016 12:00 AM Decadron, Per 1 Mg [facility]# [address]-69 Re viewed 04/23/2016 12:00 AM Toradol 60 Mg [facility]#9420-8816-13 Reviewed 05/04/2016 12:00 AM MRI LUMBAR SPINE [...] Reviewed 04/19/2014 12:00 AM Toradol 60 Mg [facility]#3125-5564-58 Reviewed 04/19/2014 12:00 AM Phenergan, Up to 50 Mg [facility]#4940-4721-56 Reviewed 04/16/2014 12:00 AM THER/PROPH/DIAG INJ SC/IM Reviewed 04/16/2014 12:00 AM Toradol 60 Mg [facility]#4029-4058-81 Reviewed 04/16/2014 12:00 AM Phenergan, Up to 50 Mg [facility]#0128-7382-49 Reviewed 09/10/2014 3:29 PM URINALYSIS AUTO W/O [...] 4:08PM Encounter for examination following treatment at [facility] 2017 4:08PM Anemia Apr 19 2018 9:47AM [...] Kirk cy Group Number Start Date BCBS [facility] [id number] N/ A [facility] [id number] [facility] [id number] 0 N/A [employer] [id number] N/A History of Encounters Visit Date Visit Type Provider 10/27/2019 Office visit Bishop Calle MARINE FIRER 10/04/2019 Office visit Jose Elias Joy DO 09/15/2019 Office visit Bishop Calle MARINE FIRER 04/28/2019 Nurse visit Bishop Calle MARINE FIRER 04/27/2019 Office visit Bishop Calle MARINE FIRER 02/28/2019 Office visit SHERITA SIMONS 02/24/2019 Office visit SHERITA SIMONS 01/12/2019 Office visit SHERITA SIMONS 08/09/2018 Procedures Jose Elias Joy DO 07/28/2018 Surgery Jose Elias Joy DO 07/26/2018 Procedures Jose Elias Benita DO 06/03/2018 Office visit Jose Elias Joy DO 05/09/2018 Office visit SHERITA SIMONS 04/26/2018 Office visit Jose Elias Joy DO 04/19/2018 Office visit SHERITA SIMONS 04/12/2018 Office visit SHERITA SIMONS 04/05/2018 Surgery Jose Elias Joy DO 04/03/2018 [facility] Grant Reyes MD 03/25/2018 Office visit SHERITA SIMONS 10/26/2017 Office visit SHERITA SIMONS 07/07/2017 Office visit SHERITA SIMONS 07/05/2017 Office visit SHERITA SIMONS 04/29/2016 Office visit SHERITA CORRAL PA 04/23/2016 Office visit SHERITA CORRAL PA 11/12/2015 Office visit SHERITA CORRAL PA 09/27/2015 Office visit SHERITA CORRAL PA 06/11/2015 Office visit SHERITA CORRAL PA 09/10/2014 Office visit SHERITA CORRAL PA 04/19/2014 Office visit SHERITA CORRAL PA 04/16/2014 Office visit SHERITA CORRAL PA
--- OUTSIDE RECORDS SUMMARY | 2020-01-14 11:24 | XMS REPORT ---
Author Author Su Calle Organization [facility] Address [address] [place], [place] [address] Care Team Providers Care Classifier Name Role Phone Bishop Calle PCP SHERITA [...] 04/23/2016 12:00 AM Decadron, Per 1 Mg [facility]# [address]-64 Re viewed 04/23/2016 12:00 AM Toradol 60 Mg [facility]#7919-8808-34 Reviewed 05/04/2016 12:00 AM MRI LUMBAR SPINE [...] Reviewed 04/19/2014 12:00 AM Toradol 60 Mg [facility]#5450-6734-40 Reviewed 04/19/2014 12:00 AM Phenergan, Up to 50 Mg [facility]#6234-1273-91 Reviewed 04/16/2014 12:00 AM THER/PROPH/DIAG INJ SC/IM Reviewed 04/16/2014 12:00 AM Toradol 60 Mg [facility]#0590-5510-88 Reviewed 04/16/2014 12:00 AM Phenergan, Up to 50 Mg [facility]#2174-8982-42 Reviewed 09/10/2014 3:29 PM URINALYSIS AUTO W/O [...] 4:08PM Encounter for examination following treatment at [facility] 2017 4:08PM Anemia Apr 19 [...] Kirk cy Group Number Start Date BCBS [facility] [id number] N/ A [facility] [address] [facility] [id number] N/A [employer] [id number] N/A History of Encounters Visit Date Visit Type Provider 04/28/2019 Nurse visit Bishop Calle QM NURSE 04/27/2019 Office visit Bishop Calle QM NURSE 02/28/2019 Office visit SHERITA SIMONS 02/24/2019 Office [...] 04/05/2018 Surgery Jose Elias Joy DO 04/03/2018 [facility] Grant Reyes MD 03/25/2018 Office visit SHERITA CORRAL PA [...]
--- OUTSIDE RECORDS SUMMARY | 2020-01-14 11:25 | XMS REPORT ---
Author Author Su CORRAL Organization [facility] Address [address] [place], [place] [address] Care Team Providers Care Director Of Product Development Name Role Phone SHERITA CORRAL PCP HSERITA CORRAL PreferredProvider Allergies and Adverse Reactions Name [...] MOUTH FOUR TIMES DAILY FOR SIX WEEKS Discontinued Name Start Date Discontinued Date SIG [...] HC BMI BSA BMI Percentile O2 Sat(%) 01/12/2019 1:33:00 PM 122 mmHg 80 mmHg [...] 04/23/2016 12:00 AM Decadron, Per 1 Mg [facility]# [address]-42 Re viewed 04/23/2016 12:00 AM Toradol 60 Mg [facility]#1081-7318-87 Reviewed 05/04/2016 12:00 AM MRI LUMBAR SPINE [...] 12:00 AM Toradol 60 Mg Injection Reviewed 04/16/2014 12:00 AM URINE BACTERIA CULTURE Reviewed 04/16/2014 12:[address] ABD & PELVIS W/O CONTRAST Reviewed 04/16/2014 11:09 AM URINALYSIS AUTO W/O SCOPE Reviewed 04/19/2014 12:00 AM THER/PROPH/DIAG INJ SC/IM Reviewed 04/19/2014 12:00 AM Toradol 60 Mg [facility]#0303-5811-73 Reviewed 04/19/2014 12:00 AM Phenergan, Up to 50 Mg [facility]#9669-8544-46 Reviewed 04/16/2014 12:00 AM THER/PROPH/DIAG INJ SC/IM Reviewed 04/16/2014 12:00 AM Toradol 60 Mg [facility]#5182-6540-04 Reviewed 04/16/2014 12:00 AM Phenergan, Up to 50 Mg [facility]#6864-6563-31 Reviewed 09/10/2014 3:29 PM URINALYSIS AUTO W/O [...] Sebaceous cyst 07/26/2018 Inflammatory bowel disease 07/26/2018 Dysuria Apr 16 2014 10:36AM Flank pain, [...] 4:08PM Encounter for examination following treatment at [facility] 2017 4:08PM Anemia Apr 19 2018 9:47AM [...] 2019 1:36PM Fibromyalgia Jan 12 2019 1:36PM Payers Insurance Name Company Name Plan Name Plan Number Policy Number Kirk Group Number Start Date [facility] [id number] N/ A [facility] [id number] [facility] [id number] N/A [employer] [id number] N/A History of Encounters Visit Date Visit Type Provider 01/12/2019 Office visit SHERITA SIMONS 08/09/2018 Procedures Jose Elias Joy DO 07/28/2018 Surgery Jose Elias Joy DO 07/26/2018 Procedures Jose Elias Joy DO 06/03/2018 Office visit Jose Elias Joy DO 05/09/2018 Office visit SHERITA SIMONS 04/26/2018 Office visit Jose Elias Joy DO 04/19/2018 Office visit SHERITA SIMONS 04/12/2018 Office visit SHERITA CORRAL PA 04/05/2018 Surgery Jose Elias Joy DO 04/03/2018 Hospital Grant Reyes MD 03/25/2018 Office visit SHERITA CORRAL PA 10/26/2017 Office visit SHERITA CORRAL PA 07/07/2017 Office visit SHERITA SIMONS 07/05/2017 Office visit SHERITA CORRAL PA 04/29/2016 Office visit SHERITA SIMONS 04/23/2016 Office visit SHERITA CORRAL PA 11/12/2015 Office visit SHERITA SIMONS 09/27/2015 Office visit SHERITA SIMONS 06/11/2015 Office visit SHERITA CORRAL PA 09/10/2014 Office visit SHERITA CORRAL PA 04/19/2014 Office visit SHERITA CORRAL PA 04/16/2014 Office visit SHERITA CORRAL PA
--- OUTSIDE RECORDS SUMMARY | 2020-01-14 11:25 | XMS REPORT ---
Author Author Su CORRAL Organization [facility] Address [address] [place], [place] [address] Care Team Providers Care Tree Chipper Name Role Phone SHERITA CORRAL PCP SHERITA [...] TWICE DAILY Percocet 5-325 mg oral tablet 02/24/2019 03/26/2019 [...] HC BMI BSA BMI Percentile O2 Sat(%) 02/28/2019 10:52:00 AM 104 mmHg 70 mmHg 86 bpm 18 rpm 98.1 F 205 lbs 64 in 35.1878 kg/m 2.0491 m 98 % 02/24/2019 7:24:00 AM 126 mmHg 70 mmHg 78 bpm 18 rpm 98.2 F 207 lbs 64 in 35.53 kg/m2 2.06 m2 98 % 01/12/2019 1:33:00 PM 122 mmHg 80 mmHg 78 bpm 18 rpm 97.4 F 204 lbs 98 % 08/09/2018 3:53:00 PM 126 mmHg 76 mmHg 62 bpm 20 rpm 98.1 F 204 lbs 64 in 35.0162 kg/m 2.0441 m 07/28/2018 1:42:00 PM 126 mmHg 76 mmHg 62 bpm 20 rpm 98.1 F 204.5 lbs 64 in 35.102 kg/m 2.05 m2 07/26/2018 11:56:00 AM 126 mmHg 76 mmHg 62 bpm 20 rpm 98.1 F 204.5 lbs 64 i n 35.10 kg/m2 2.0466 m 06/03/2018 10:16:00 AM 112 mmHg [...] 04/23/2016 12:00 AM Decadron, Per 1 Mg [facility]# [address]-33 Re viewed 04/23/2016 12:00 AM Toradol 60 Mg [facility]#0563-9982-14 Reviewed 05/04/2016 12:00 AM MRI LUMBAR SPINE [...] 01/12/2019 12:00 AM Depo-Medrol 80mg Injection Reviewed 02/28/2019 12:00 AM Decadron 8mg Injection Reviewed 02/28/2019 12:00 AM Depo-Medrol 80mg Injection Reviewed 02/28/2019 12:00 AM Toradol 60 Mg Injection Reviewed 02/24/2019 12:00 AM Decadron 8mg Injection Reviewed 02/24/2019 12:00 AM Depo-Medrol 80mg Injection Reviewed 02/24/2019 12:00 AM Toradol 60 Mg Injection Reviewed 02/24/2019 12:00 AM THER/PROPH/DIAG INJ SC/IM Reviewed 04/16/2014 12:00 AM URINE BACTERIA CULTURE Reviewed 04/16/2014 12:[address] ABD & PELVIS W/O CONTRAST Reviewed 04/16/2014 11:09 AM URINALYSIS AUTO W/O SCOPE Reviewed 04/19/2014 12:00 AM THER/PROPH/DIAG INJ SC/IM Reviewed 04/19/2014 12:00 AM Toradol 60 Mg [facility]#7862-6883-55 Reviewed 04/19/2014 12:00 AM Phenergan, Up to 50 Mg [facility]#3112-1380-36 Reviewed 04/16/2014 12:00 AM THER/PROPH/DIAG INJ SC/IM Reviewed 04/16/2014 12:00 AM Toradol 60 Mg [facility]#4359-4786-68 Reviewed 04/16/2014 12:00 AM Phenergan, Up to 50 Mg [facility]#7237-8031-21 Reviewed 09/10/2014 3:29 PM URINALYSIS AUTO W/O [...] 4:08PM Encounter for examination following treatment at [facility] 2017 4:08PM Anemia Apr 19 2018 [...] rheumatoid factor presence Feb 24 2019 7:24AM Payers Insurance Name Company Name Plan Name Plan Number Policy Number Kirk cy Group Number [facility] Date [id number] N/ A [facility] [id number] [facility] [id number] N/A [employer] [id number] N/A History of Encounters Visit Date Visit Type Provider 02/28/2019 Office visit SHERITA SIMONS 02/24/2019 Office visit SHERITA SIMONS 01/12/2019 Office visit SHERITA SIMONS 08/09/2018 Procedures Jose Elias Bouman DO 07/28/2018 Surgery Jose Elias Bouman DO 07/26/2018 Procedures Jose Elias Bouman DO 06/03/2018 Office visit Jose Elias Christopheruman DO 05/09/2018 Office visit SHERIAT SIMONS 04/26/2018 Office visit Jose Elias Joy DO 04/19/2018 Office visit SHERITA SIMONS 04/12/2018 Office visit SHERITA SIMONS 04/05/2018 Surgery Jose Elias Bouman DO 04/03/2018 [facility] Grant Reyes MD 03/25/2018 Office [...]
--- OUTSIDE RECORDS SUMMARY | 2020-01-14 11:25 | XMS REPORT ---
Author Author Su CORRAL Organization [facility] Address [address] [place], [place] [address] Care Team Providers Care Sales Promotion Manager Name Role Phone SHERITA CORRAL PCP SHERITA CORRAL PreferredProvider Allergies and Adverse Reactions Name Reaction Notes Vicodin nausea/vomting Plan of Treatment Planned Activity Comments Planned Date Planned Time Plan/Goal WBC STOOL 05/13/2018 12:00 AM Mammogram, screening, bilateral 05/27/2018 12:00 AM Injection, Subcutaneous/IM 03/15/2019 12:00 AM Medications Active Name Start Date [...] 04/23/2016 12:00 AM Decadron, Per 1 Mg [facility]# [address]-37 Re viewed 04/23/2016 12:00 AM Toradol 60 Mg [facility]#8486-0085-11 Reviewed 05/04/2016 12:00 AM MRI LUMBAR SPINE [...] Reviewed 04/19/2014 12:00 AM Toradol 60 Mg [facility]#6693-7389-56 Reviewed 04/19/2014 12:00 AM Phenergan, Up to 50 Mg [facility]#7524-1207-73 Reviewed 04/16/2014 12:00 AM THER/PROPH/DIAG INJ SC/IM Reviewed 04/16/2014 12:00 AM Toradol 60 Mg [facility]#1372-8971-90 Reviewed 04/16/2014 12:00 AM Phenergan, Up to 50 Mg [facility]#1079-1212-71 Reviewed 09/10/2014 3:29 PM URINALYSIS AUTO W/O [...] 4:08PM Encounter for examination following treatment at [facility] 2017 4:08PM Anemia Apr 19 2018 [...] 2019 10:52AM Cervicalgia Feb 28 2019 10:52AM Payers Insurance Name Company Name Plan Name Plan Number Policy Number Kirk cy Group Number Start Date [facility] [id number] N/ A [facility] [id number] [facility] [id number] 0 N/A [employer] [id number] N/A History of Encounters Visit Date Visit Type Provider 02/28/2019 Office visit SHERITA SIMONS 02/24/2019 Office visit SHERITA SIMONS 01/12/2019 Office visit SHERITA SIMONS 08/09/2018 Procedures Jose Elias Christopherserge DO 07/28/2018 Surgery Jose Elias Joy DO 07/26/2018 Procedures Jose Elias Bouman DO 06/03/2018 Office visit Jose Elias Joy DO 05/09/2018 Office visit SHERITA SIMONS 04/26/2018 Office visit Jose Elias Joy DO 04/19/2018 Office visit SHERITA SIMONS 04/12/2018 Office visit SHERITA SIMONS 04/05/2018 Surgery Jose Elias Benita DO 04/03/2018 Hospital Grant Reyes MD 03/25/2018 Office visit SHERITA SIMONS 10/26/2017 Office visit SHERITA SIMONS 07/07/2017 Office visit SHERITA SIMONS 07/05/2017 Office visit SHERITA SIMONS 04/29/2016 Office visit SHERITA SIMONS 04/23/2016 Office visit SHERITA SIMONS 11/12/2015 Office visit SHERITA CORRAL PA 09/27/2015 Office visit SHERITA CORRAL PA 06/11/2015 Office visit SHERITA CORRAL PA 09/10/2014 Office visit SHERITA CORRAL PA 04/19/2014 Office visit SHERITA CORRAL PA 04/16/2014 Office visit SHERITA CORRAL PA
--- OUTSIDE RECORDS SUMMARY | 2020-01-14 11:25 | XMS REPORT ---
Author Author Su Joy Organization [facility] Address [address] [place], [place] [address] Care Team Providers Care Underground Truck Operator Name Role Phone Jose Elias Joy PCP [...] route once daily with food with furosemide Name Start Date Expiration Date SIG Comments [...] HC BMI BSA BMI Percentile O2 Sat(%) 08/09/2018 3:53:00 PM 126 mmHg 76 mmHg [...] 12:00 AM Decadron, Per 1 Mg [facility]# [address]-77 Re viewed 04/23/2016 12:00 AM Toradol 60 Mg [facility]#9758-8544-08 Reviewed 05/04/2016 12:00 AM MRI LUMBAR SPINE [...] wed 06/03/2018 12:00 AM IMMUNOASSAY NONANTIBODY Reviewed 04/16/2014 12:00 AM URINE BACTERIA CULTURE Reviewed 04/16/2014 12:[address] ABD & PELVIS W/O CONTRAST Reviewed 04/16/2014 11:09 AM URINALYSIS AUTO W/O SCOPE Reviewed 04/19/2014 12:00 AM THER/PROPH/DIAG INJ SC/IM Reviewed 04/19/2014 12:00 AM Toradol 60 Mg ND#5868-1929-57 Reviewed 04/19/2014 12:00 AM Phenergan, Up to 50 Mg [facility]#7859-6817-97 Reviewed 04/16/2014 12:00 AM THER/PROPH/DIAG INJ SC/IM Reviewed 04/16/2014 12:00 AM Toradol 60 Mg NDC#0445-5780-03 Reviewed 04/16/2014 12:00 AM Phenergan, Up to 50 Mg [facility]#8846-6638-93 Reviewed 09/10/2014 3:29 PM URINALYSIS AUTO W/O [...] 11:57AM Rheumatoid arthritis Jul 26 2018 11:57AM Payers Insurance Name Company Name Plan Name Plan Number Policy Number Kirk cy Group Number [facility] Date [facility] [id number] N/ A [facility] [id number] [facility] [id number] 0 N/A [employer] [id number] N/A History of Encounters Visit Date Visit Type Provider 08/09/2018 Procedures Jose Elias Joy DO 07/28/2018 Surgery Jose Elias Joy DO 07/26/2018 Procedures Jose Elias Joy DO 06/03/2018 Office visit Jose Elias Joy DO 05/09/2018 Office visit SHERITA SIMONS 04/26/2018 Office visit Jose Elias Joy DO 04/19/2018 Office visit SHERITA SIMONS 04/12/2018 Office visit SHERITA SIMONS 04/05/2018 Surgery Jose Elias Joy DO 04/03/2018 [facility] Grant Reyes MD 03/25/2018 Office visit SHEIRTA SIMONS 10/26/2017 Office visit SHERITA SIMONS 07/07/2017 Office visit SHERITA SIMONS 07/05/2017 Office visit SHERITA SIMONS 04/29/2016 Office visit SHERITA SIMONS 04/23/2016 Office visit SHERITA SIMONS 11/12/2015 Office visit SHERITA SIMONS 09/27/2015 Office visit SHERITA SIMONS 06/11/2015 Office visit SHERITA SIMONS 09/10/2014 Office visit SHERITA SIMONS 04/19/2014 Office visit SHERITA SIMONS 04/16/2014 Office visit SHERITA SIMONS
--- OUTSIDE RECORDS SUMMARY | 2020-01-14 11:26 | XMS REPORT ---
Author Author Su Joy Organization [facility] Address [address] [place], [place] [address] Care Team Providers Care Ladle Mechanic Name Role Phone Jose Elias Joy PCP [...] Active 07/26/2018 Inflammatory bowel disease Active 07/26/2018 Rheumatoid arthritis Active 07/26/2018 Vital Signs Date Time BP-Sys(mm[Hg] BP-Chery(mm[Hg]) HR(bpm) RR(rpm) Temp WT HT HC BMI BSA BMI Percentile O2 Sat(%) 07/26/2018 11:56:00 AM 126 mmHg 76 mmHg [...] 12:00 AM Decadron, Per [address] [facility]# [address]-69 Re viewed 04/23/2016 12:00 AM Toradol 60 Mg NDC#0146-5138-04 Reviewed 05/04/2016 12:00 AM MRI LUMBAR SPINE [...] Reviewed 04/19/2014 12:00 AM Toradol [address] [facility]#2465-9773-46 Reviewed 04/19/2014 12:00 AM Phenergan, Up to [address] [facility]#9091-3959-77 Reviewed 04/16/2014 12:00 AM THER/PROPH/DIAG INJ SC/IM Reviewed 04/16/2014 12:00 AM Toradol [address] [facility]#9395-4942-82 Reviewed 04/16/2014 12:00 AM Phenergan, Up to [address] [facility]#0223-1585-78 Reviewed 09/10/2014 3:29 PM URINALYSIS AUTO W/O [...] Sebaceous cyst 07/26/2018 Inflammatory bowel disease 07/26/2018 Rheumatoid arthritis 07/26/2018 Dysuria Apr 16 2014 10:36AM Flank [...] 4:08PM Encounter for examination following treatment at [facility] 2017 4:08PM Anemia Apr 19 2018 [...] Kirk cy Group Number Start Date BCBS Bcbs [facility] [id number] N/ A [facility] [id number] [facility] [id number] 0 N/A [employer] [id number] N/A History of Encounters Visit Date Visit Type Provider 07/26/2018 Procedures Jose Elias Joy DO 06/03/2018 Office visit Jose Elias Joy DO 05/09/2018 Office visit SHERITA SIMONS 04/26/2018 Office visit Jose Elias Joy DO 04/19/2018 Office visit SHERITA SIMONS 04/12/2018 Office visit SHERITA SIMONS 04/05/2018 Surgery Jose Elias Joy DO 04/03/2018 [facility] Grant Reyes MD 03/25/2018 Office [...]
--- OUTSIDE RECORDS SUMMARY | 2020-01-14 11:26 | XMS REPORT ---
Author Author Su Joy Organization [facility] Address [address] [place], [place] [address] Care Team Providers Care Safety Aide Name Role Phone Jose Elias Joy PCP [...] HC BMI BSA BMI Percentile O2 Sat(%) 07/28/2018 1:42:00 PM 126 mmHg 76 mmHg 62 bpm 20 rpm 98.1 F 204.5 lbs 64 in 35.102 kg/m 2.0466 m 07/26/2018 11:56:00 AM 126 mmHg 76 mmHg 62 bpm 20 rpm 98.1 F 204.5 lbs 64 i n 35.10 kg/m2 2.05 m2 06/03/2018 10:16:00 AM 112 mmHg 62 mmHg [...] 04/23/2016 12:00 AM Decadron, Per 1 Mg [facility]# [address]-61 Re viewed 04/23/2016 12:00 AM Toradol 60 Mg [facility]#9090-4158-40 Reviewed 05/04/2016 12:00 AM MRI LUMBAR SPINE [...] Reviewed 04/19/2014 12:00 AM Toradol 60 Mg [facility]#7852-4385-94 Reviewed 04/19/2014 12:00 AM Phenergan, Up to 50 Mg [facility]#3410-7711-37 Reviewed 04/16/2014 12:00 AM THER/PROPH/DIAG INJ SC/IM Reviewed 04/16/2014 12:00 AM Toradol 60 Mg [facility]#8269-3531-81 Reviewed 04/16/2014 12:00 AM Phenergan, Up to 50 Mg [facility]#9155-3784-44 Reviewed 09/10/2014 3:29 PM URINALYSIS AUTO W/O [...] 4:08PM Encounter for examination following treatment at [facility] 2017 4:08PM Anemia Apr 19 2018 [...] cy Group Number Start Date BCBS Bcbs [facility] [id number] N/ A [facility] [id number] [facility] [id number] 0 N/A [employer] [id number] N/A History of Encounters Visit Date Visit Type Provider 07/28/2018 Surgery Jose Elias Joy DO 07/26/2018 Procedures Jose Elias Joy DO 06/03/2018 Office visit Jose Elias Joy DO 05/09/2018 Office visit SHERITA SIMONS 04/26/2018 Office visit Jose Elias Joy DO 04/19/2018 Office visit SHERITA SIMONS 04/12/2018 Office visit SHERITA SIMONS 04/05/2018 Surgery Jose Elias Benita DO 04/03/2018 [facility] Grant Reyes [...]
--- OUTSIDE RECORDS SUMMARY | 2020-01-14 11:26 | XMS REPORT ---
Author Author Su Joy Organization [facility] Phys[facility] oup Address [address] [place], [place] [address] Care Team Providers Care Fire Manager Name Role Phone Jose Elias Joy PCP [...] 1 Mg [facility]# [address]-43 Re viewed 04/23/2016 12:00 AM Toradol 60 Mg [facility]#7633-2091-43 Reviewed 05/04/2016 12:00 AM MRI LUMBAR SPINE [...] Reviewed 04/19/2014 12:00 AM Toradol 60 Mg [facility]#4309-8006-57 Reviewed 04/19/2014 12:00 AM Phenergan, Up to 50 Mg [facility]#1472-6734-22 Reviewed 04/16/2014 12:00 AM THER/PROPH/DIAG INJ SC/IM Reviewed 04/16/2014 12:00 AM Toradol 60 Mg [facility]#7322-9167-54 Reviewed 04/16/2014 12:00 AM Phenergan, Up to 50 Mg [facility]#6695-0627-47 Reviewed 09/10/2014 3:29 PM URINALYSIS AUTO W/O [...] 4:08PM Encounter for examination following treatment at [facility] 2017 4:08PM Anemia Apr 19 2018 [...] cy Group Number Start Date BCBS Bcbs [facility] [id number] N/ A [facility] [address] [facility] [id number] 0 N/A [employer] [id number] N/A History of Encounters Visit Date Visit Type Provider 07/26/2018 Procedures Jose Elias Joy DO 06/03/2018 Office visit Jose Elias Joy DO 05/09/2018 Office visit SHERITA SIMONS 04/26/2018 Office visit Jose Elias Joy DO 04/19/2018 Office visit SHERITA SIMONS 04/12/2018 Office visit SHERITA SIMONS 04/05/2018 Surgery Jose Elias Joy DO 04/03/2018 [facility] Grant Reyes MD 03/25/2018 Office visit [...]
--- OUTSIDE RECORDS SUMMARY | 2020-01-14 11:26 | XMS REPORT ---
Author Author Su Joy Organization [facility] Address [address] [place], [place] [address] Care Team Providers Care Creative Services Coordinator Name Role Phone Jose Elias Joy PCP [...] 04/23/2016 12:00 AM Decadron, Per 1 Mg [facility]# [address]-22 Re viewed 04/23/2016 12:00 AM Toradol 60 Mg [facility]#1410-0882-61 Reviewed 05/04/2016 12:00 AM MRI LUMBAR SPINE [...] Reviewed 04/19/2014 12:00 AM Toradol 60 Mg [facility]#9632-6376-30 Reviewed 04/19/2014 12:00 AM Phenergan, Up to 50 Mg [facility]#3868-3565-69 Reviewed 04/16/2014 12:00 AM THER/PROPH/DIAG INJ SC/IM Reviewed 04/16/2014 12:00 AM Toradol 60 Mg [facility]#7682-6050-28 Reviewed 04/16/2014 12:00 AM Phenergan, Up to 50 Mg [facility]#0823-2515-40 Reviewed 09/10/2014 3:29 PM URINALYSIS AUTO W/O [...] 4:08PM Encounter for examination following treatment at [facility] 2017 4:08PM Anemia Apr 19 [...] cy Group Number Start Date BCBS Bcbs [facility] [id number] N/ A [facility] [address] [facility] [id number] 0 N/A [employer] [id number] N/A History of Encounters Visit Date Visit Type Provider 07/26/2018 Procedures Jose Elias Joy DO 06/03/2018 Office visit Jose Elias Joy DO 05/09/2018 Office visit SHERITA SIMONS 04/26/2018 Office visit Jose Elias Joy DO 04/19/2018 Office visit SHERITA SIMONS 04/12/2018 Office visit SHERITA SIMONS 04/05/2018 Surgery Jose Elias Joy DO 04/03/2018 [facility] Grant Reyes MD 03/25/2018 Office visit [...]
--- OUTSIDE RECORDS SUMMARY | 2020-01-14 11:27 | XMS REPORT ---
Author Author Su Joy Organization [facility] Physicians oup Address [address] [place], [place] [address] Care Team Providers Care Commuter Train Operator Name Role Phone Jose Elias Joy PCP SHERITA CORRAL PreferredProvider Allergies and Adverse Reactions Name Reaction Notes Vicodin nausea/vomting Plan of Treatment Planned Activity Comments Planned Date Planned Time Plan/Goal C. difficile A + B toxin stool 05/13/2018 12:00 AM WBC STOOL 05/13/2018 12:00 AM Mammogram, screening, [...] Status Onset Arthritis unspecified Active Constipation Active Diarrhea Active dysphagia Active Fibromyalgia Active Hypercholesterolemia Active Hypertension Active History of renal calculi Active 04/22/2014 Rheumatoid arthritis, involving unspecif ied site, unspecified rheumatoid factor presence Active 11/02/2017 Lumbar disc disease Active 11/02/2017 Nephrolithiasis Active 11/02/2017 Fibromuscular dysplasia Active 11/02/2017 Essential hypertension Active 04/20/2018 Colitis Active 04/26/2018 Irritable bowel syndrome with diarrhea Active 0 05/12/2018 Diarrhea Active 06/03/2018 Rectal bleeding Active 06/03/2018 Rheumatoid arthritis Active 06/03/2018 Vital Signs Date Time BP-Sys(mm[Hg] BP-Chery(mm[Hg]) HR(bpm) RR(rpm) Temp WT HT HC BMI BSA BMI Percentile O2 Sat(%) 06/03/2018 10:16:00 AM 112 mmHg 62 mmHg 64 bpm 20 rpm 97.2 F 209 lbs 64 in 35.8744 kg/m 2.069 m 05/09/2018 2:53:00 PM 110 mmHg 68 mmHg 58 bpm 18 rpm 98.2 F 212 lbs 64 in 36.39 kg/m2 2.08 m2 98 % 04/26/2018 12:12:00 PM 112 mmHg 61 mmHg 63 bpm 20 rpm 96.9 F 213.5 lbs 64 in 36.6468 kg/m 2.0912 m 04/19/2018 9:35:00 AM 124 mmHg 76 mmHg 84 bpm 18 rpm 98.4 F 215 lbs 64 in 36.90 kg/m2 2.10 m2 98 % 04/12/2018 4:07:00 PM 99 mmHg [...] 04/23/2016 12:00 AM Decadron, Per 1 Mg [facility]# [address]-83 Re viewed 04/23/2016 12:00 AM Toradol 60 Mg [facility]#8348-5052-42 Reviewed 05/04/2016 12:00 AM MRI LUMBAR SPINE [...] 12:00 AM OVA AND PARASITES SMEARS Returned 06/03/2018 12:00 AM Inflammatory Bowel Disease Profile Revie wed 06/03/2018 12:00 AM IMMUNOASSAY NONANTIBODY Reviewed 04/16/2014 12:00 AM URINE BACTERIA CULTURE Reviewed 04/16/2014 12:[address] ABD & PELVIS W/O CONTRAST Reviewed 04/16/2014 11:09 AM URINALYSIS AUTO W/O SCOPE Reviewed 04/19/2014 12:00 AM THER/PROPH/DIAG INJ SC/IM Reviewed 04/19/2014 12:00 AM Toradol 60 Mg [facility]#4836-4082-72 Reviewed 04/19/2014 12:00 AM Phenergan, Up to 50 Mg ND#0458-9341-41 Reviewed 04/16/2014 12:00 AM THER/PROPH/DIAG INJ SC/IM Reviewed 04/16/2014 12:00 AM Toradol 60 Mg [facility]#7659-2109-54 Reviewed 04/16/2014 12:00 AM Phenergan, Up to 50 Mg ND#9941-1774-22 Reviewed 09/10/2014 3:29 PM URINALYSIS AUTO W/O [...] Past Illness Name Date of Onset Comments Hypertension Arthritis unspecified Fibromyalgia dysphagia Cancer Constipation Diarrhea Hypercholesterolemia History of renal calculi 04/22/2014 Rheumatoid arthritis, involving unspecif ied site, unspecified rheumatoid factor presence 11/02/2017 Lumbar disc disease 11/02/2017 Nephrolithiasis 11/02/2017 Fibromuscular dysplasia 11/02/2017 Essential hypertension 04/20/2018 Colitis 04/26/2018 Irritable bowel syndrome with diarrhea 05/12/2018 Diarrhea 06/03/2018 Rectal bleeding 06/03/2018 Rheumatoid arthritis 06/03/2018 Dysuria Apr 16 2014 10:36AM Flank pain, [...] 4:08PM Encounter for examination following treatment at [facility] 2017 4:08PM Anemia Apr 19 [...] 2018 1:40PM Diarrhea Jun 03 2018 1:40PM Payers Insurance Name Company Name Plan Name Plan Number Policy Number Kirk cy Group Number [facility] Date [facility] [id number] N/ A [facility] [id number] [facility] [id number] 0 N/A [employer] [id number] N/A History of Encounters Visit Date Visit Type Provider 06/03/2018 Office visit Jose Elias Joy DO 05/09/2018 Office visit SHERITA SIMONS 04/26/2018 Office visit Jose Elias Joy DO 04/19/2018 Office visit SHERITA SIMONS 04/12/2018 Office visit SHERITA SIMONS 04/05/2018 Surgery Jose Elias Joy DO 04/03/2018 [facility] Grant Reyes MD 03/25/2018 Office [...]
--- OUTSIDE RECORDS SUMMARY | 2020-01-14 11:27 | XMS REPORT ---
Author Author Su Joy Organization [facility] Physicians oup Address [address] [place], [place] [address] Care Team Providers Care Health Psychologist Name Role Phone Jose Elias Joy PCP [...] 12:00 AM Decadron, Per 1 Mg [facility]# [address]-99 Re viewed 04/23/2016 12:00 AM Toradol 60 Mg [facility]#9436-1507-30 Reviewed 05/04/2016 12:00 AM MRI LUMBAR SPINE [...] 12:00 AM OVA AND PARASITES SMEARS Returned 04/16/2014 12:00 AM URINE BACTERIA CULTURE Reviewed 04/16/2014 12:[address] ABD & PELVIS W/O CONTRAST Reviewed 04/16/2014 11:09 AM URINALYSIS AUTO W/O SCOPE Reviewed 04/19/2014 12:00 AM THER/PROPH/DIAG INJ SC/IM Reviewed 04/19/2014 12:00 AM Toradol 60 Mg [facility]#3161-5424-49 Reviewed 04/19/2014 12:00 AM Phenergan, Up to 50 Mg [facility]#0616-2098-85 Reviewed 04/16/2014 12:00 AM THER/PROPH/DIAG INJ SC/IM Reviewed 04/16/2014 12:00 AM Toradol 60 Mg [facility]#5688-9892-46 Reviewed 04/16/2014 12:00 AM Phenergan, Up to 50 Mg [facility]#3152-4936-71 Reviewed 09/10/2014 3:29 PM URINALYSIS AUTO W/O [...] 1.0 WBC Est Ur Ql Strip trace History Of Immunizations Not available. History of [...] low back pain with right-sided sciatica Au 10 2015 8:43AM Arthralgia of right hip Apr [...] 4:08PM Encounter for examination following treatment at [facility] 2017 4:08PM Anemia Apr 19 2018 [...] 10:18AM Rectal bleeding Jun 03 2018 10:18AM Payers Insurance Name Company Name Plan Name Plan Number Policy Number Kirk cy Group Number Start Date BCBS [facility] [id number] N/ A [facility] [address] [facility] [id number] 0 N/A [employer] [id number] N/A History of Encounters Visit Date Visit Type Provider 06/03/2018 Office visit Jose Elias Joy DO 05/09/2018 Office visit SHERITA SIMONS 04/26/2018 Office visit Jose Elias Joy DO 04/19/2018 Office visit SHERITA SIMONS 04/12/2018 Office visit SHERITA SIMONS 04/05/2018 Surgery Jose Elias Joy DO 04/03/2018 [facility] Grant Reyes MD 03/25/2018 Office [...] visit SHERITA SIMONS 04/16/2014 Office visit SHERITA CORRAL PA
--- OUTSIDE RECORDS SUMMARY | 2020-01-14 11:27 | XMS REPORT ---
Author Author Su Joy Organization [facility] Physicians oup Address [address] [place], [place] [address] Care Team Providers Care Engineering Librarian Name Role Phone Jose Elias Joy PCP [...] 12:00 AM Decadron, Per [address] [facility]# [address]-17 Re viewed 04/23/2016 12:00 AM Toradol [address] [facility]#9450-9401-35 Reviewed 05/04/2016 12:00 AM MRI LUMBAR SPINE [...] Reviewed 04/19/2014 12:00 AM Toradol 60 Mg [facility]#8152-2604-57 Reviewed 04/19/2014 12:00 AM Phenergan, Up to 50 Mg [facility]#7893-6371-02 Reviewed 04/16/2014 12:00 AM THER/PROPH/DIAG INJ SC/IM Reviewed 04/16/2014 12:00 AM Toradol 60 Mg [facility]#2563-8592-61 Reviewed 04/16/2014 12:00 AM Phenergan, Up to 50 Mg ND#8206-1526-17 Reviewed 09/10/2014 3:29 PM URINALYSIS AUTO W/O [...] 4:08PM Encounter for examination following treatment at [facility] 2017 4:08PM Anemia Apr 19 2018 9:47AM [...] 1:40PM Crohn disease Jun 20 2018 1:23PM Payers Insurance Name Company Name Plan Name Plan Number Policy Number Kirk cy Group Number Start Date [facility] [id number] N/ A [facility] [address] [facility] [id number] 0 N/A [employer] [id number] N/A History of Encounters Visit Date Visit Type Provider 06/03/2018 Office visit Jose Elias Joy DO 05/09/2018 Office visit SHERITA SIMONS 04/26/2018 Office visit Jose Elias Joy DO 04/19/2018 Office visit SHERITA SIMONS 04/12/2018 Office visit SHERITA SIMONS 04/05/2018 Surgery Jose Elias Joy DO 04/03/2018 [facility] Grant Reyes MD 03/25/2018 Office [...]
--- OUTSIDE RECORDS SUMMARY | 2020-01-14 11:27 | XMS REPORT ---
Author Author Su CORRAL Organization [facility] Physicians oup Address [address] [place], [place] [address] Care Team Providers Care Riverboat Captain Name Role Phone SHERITA CORRAL PCP SHERITA [...] Active Fibromyalgia Active Hypercholesterolemia Active Hypertension Active Kidney Stones Active History of renal calculi Active 04/22/2014 Rheumatoid arthritis, involving unspecif ied site, unspecified rheumatoid factor presence Active 11/02/2017 Lumbar disc disease Active 11/02/2017 Nephrolithiasis Active 11/02/2017 Fibromuscular dysplasia Active 11/02/2017 Essential hypertension Active 04/20/2018 Colitis Active 04/26/2018 Irritable bowel syndrome with diarrhea Active 0 05/12/2018 Vital Signs Date Time BP-Sys(mm[Hg] BP-Chery(mm[Hg]) HR(bpm) RR(rpm) Temp WT HT HC BMI BSA BMI Percentile O2 Sat(%) 05/09/2018 2:53:00 PM 110 mmHg 68 mmHg [...] 04/23/2016 12:00 AM Decadron, Per 1 Mg [facility]# [address]-97 Re viewed 04/23/2016 12:00 AM Toradol 60 Mg [facility]#4317-0150-14 Reviewed 05/04/2016 12:00 AM MRI LUMBAR SPINE [...] Reviewed 04/19/2014 12:00 AM Toradol 60 Mg [facility]#9545-2825-33 Reviewed 04/19/2014 12:00 AM Phenergan, Up to 50 Mg [facility]#6274-5990-73 Reviewed 04/16/2014 12:00 AM THER/PROPH/DIAG INJ SC/IM Reviewed 04/16/2014 12:00 AM Toradol 60 Mg [facility]#7522-5314-93 Reviewed 04/16/2014 12:00 AM Phenergan, Up to 50 Mg [facility]#6321-6040-91 Reviewed 09/10/2014 3:29 PM URINALYSIS AUTO W/O [...] Onset Comments Hypertension Arthritis unspecified Fibromyalgia dysphagia Kidney Stones Cancer Constipation Diarrhea Hypercholesterolemia History of renal calculi 04/22/2014 Rheumatoid arthritis, involving unspecif ied site, unspecified rheumatoid factor presence 11/02/2017 Lumbar disc disease 11/02/2017 Nephrolithiasis 11/02/2017 Fibromuscular dysplasia 11/02/2017 Essential hypertension 04/20/2018 Colitis 04/26/2018 Irritable bowel syndrome with diarrhea 05/12/2018 Dysuria Apr 16 2014 10:36AM Flank pain, [...] 4:08PM Encounter for examination following treatment at [facility] 2017 4:08PM Anemia Apr 19 [...] for breast cancer May 27 2018 7:08AM Payers Insurance Name Company Name Plan Name Plan Number Policy Number Kirk cy Group Number Start Date BCBS [facility] [id number] N/ A [facility] [id number] N/A [employer] [id number] N/A History of Encounters Visit Date Visit Type Provider 05/09/2018 Office visit SHERITA SIMONS 04/26/2018 Office visit Jose Elias Joy DO 04/19/2018 Office visit SHERITA SIMONS 04/12/2018 Office visit SHERITA SIMONS 04/05/2018 Surgery Jose Elias Joy DO 04/03/2018 [facility] Grant Reyes MD 03/25/2018 Office visit [...]
--- OUTSIDE RECORDS SUMMARY | 2020-01-14 11:27 | XMS REPORT ---
Author Author Su Joy Organization [facility] Physicians oup Address [address] [place], [place] [address] Care Team Providers Care Biophysics Professor Name Role Phone Jose Elias Joy PCP SHERITA CORRAL PreferredProvider Allergies and Adverse Reactions Name Reaction Notes Vicodin nausea/vomting Plan of Treatment Planned Activity Comments Planned Date Planned Time Plan/Goal C. difficile A + B toxin stool 05/13/2018 12:00 AM WBC STOOL 05/13/2018 12:00 AM Mammogram, screening, bilateral 05/27/2018 12:00 AM CELIAC DISEASE PROFILE 06/03/2018 12:00 AM Medications Active Name Start Date [...] 04/23/2016 12:00 AM Decadron, Per 1 Mg [facility]# [address]-47 Re viewed 04/23/2016 12:00 AM Toradol 60 Mg [facility]#7494-8270-98 Reviewed 05/04/2016 12:00 AM MRI LUMBAR SPINE [...] Reviewed 04/19/2014 12:00 AM Toradol 60 Mg [facility]#8854-5537-59 Reviewed 04/19/2014 12:00 AM Phenergan, Up to 50 Mg [facility]#3994-3131-50 Reviewed 04/16/2014 12:00 AM THER/PROPH/DIAG INJ SC/IM Reviewed 04/16/2014 12:00 AM Toradol 60 Mg [facility]#7552-1404-87 Reviewed 04/16/2014 12:00 AM Phenergan, Up to 50 Mg [facility]#5085-5037-05 Reviewed 09/10/2014 3:29 PM URINALYSIS AUTO W/O [...] 4:08PM Encounter for examination following treatment at [facility] 2017 4:08PM Anemia Apr 19 [...] Kirk cy Group Number Start Date BCBS [facility] [id number] N/ A [facility] [id number] [facility] [id number] N/A [employer] [...] SHERITA CORRAL PA 06/11/2015 Office visit SHERITA SIMNOS 09/10/2014 Office visit SHERITA SIMONS 04/19/2014 Office visit SHERITA CORRAL PA 04/16/2014 Office visit SHERITA SIMONS
--- OUTSIDE RECORDS SUMMARY | 2020-01-14 11:28 | XMS REPORT ---
Author Author Su Joy Organization [facility] Address [address] [place], [place] [address] Care Team Providers Care Bradder Name Role Phone Jose Elias Joy PCP SHERITA CORRAL PreferredProvider Allergies and Adverse Reactions Name Reaction Notes Vicodin nausea/vomting Plan of Treatment Not available. Medications Active Name Start Date Estimated Completion [...] route once daily with food with furosemide Probiotic 15 billion cell oral capsule 04/26/2018 05/26/2018 take 1 capsule by oral route 2 times a day for 30 days Name Start Date Expiration [...] BEDTIME fluconazole 150 mg oral tablet 12/30/2017 lilian hanna one tablet today and one tablet in 7 days Bactroban Nasal 2 % nasal ointment 03/29/2018 apply one-half of the ointment from the tube into each nostril by topical route 2 times per day in the morning and evening Discontinued Name Start Date Discontinued Date SIG [...] Essential hypertension Active 04/20/2018 Colitis Active 04/26/2018 Vital Signs Date Time BP-Sys(mm[Hg] BP-Chery(mm[Hg]) HR(bpm) RR(rpm) Temp WT HT HC BMI BSA BMI Percentile O2 Sat(%) 04/26/2018 12:12:00 PM 112 mmHg 61 mmHg [...] 04/23/2016 12:00 AM Decadron, Per 1 Mg [facility]# [address]-18 Re viewed 04/23/2016 12:00 AM Toradol 60 Mg [facility]#5384-2671-15 Reviewed 05/04/2016 12:00 AM MRI LUMBAR SPINE [...] Returned 04/19/2018 12:00 AM ROUTINE VENIPUNCTURE Reviewed 04/16/2014 12:00 AM URINE BACTERIA CULTURE Reviewed 04/16/2014 12:[address] ABD & PELVIS W/O CONTRAST Reviewed 04/16/2014 11:09 AM URINALYSIS AUTO W/O SCOPE Reviewed 04/19/2014 12:00 AM THER/PROPH/DIAG INJ SC/IM Reviewed 04/19/2014 12:00 AM Toradol 60 Mg NDC#0961-1993-35 Reviewed 04/19/2014 12:00 AM Phenergan, Up to 50 Mg ND#8507-6267-79 Reviewed 04/16/2014 12:00 AM THER/PROPH/DIAG INJ SC/IM Reviewed 04/16/2014 12:00 AM Toradol 60 Mg NDC#5525-9228-40 Reviewed 04/16/2014 12:00 AM Phenergan, Up to 50 Mg [facility]#3095-1060-66 Reviewed 09/10/2014 3:29 PM URINALYSIS AUTO W/O [...] dysplasia 11/02/2017 Essential hypertension 04/20/2018 Colitis 04/26/2018 Dysuria Apr 16 2014 10:36AM Flank pain, [...] 4:08PM Encounter for examination following treatment at [facility] 2017 4:08PM Anemia Apr 19 2018 9:47AM Hypokalemia Apr 19 2018 9:47AM Severe Resolved Infectious colitis Apr 19 2018 9:36AM Fibromuscular dysplasia Apr 19 2018 9:36AM Rheumatoid arthritis, involving unspecif ied site, unspecified rheumatoid factor presence Apr 19 2018 9:36AM Fibromyalgia Apr 19 2018 9:36AM Essential hypertension Apr 19 2018 9:36AM Colitis Apr 26 2018 12:13PM Payers Insurance Name Company Name Plan Name Plan Number Policy Number Kirk cy Group Number Start Date BCBS [facility] [id number] N/ A [facility] [id number] N/A [employer] [id number] N/A History of Encounters Visit Date Visit Type Provider 04/26/2018 Office visit Jose Elias Joy DO [...]
--- OUTSIDE RECORDS SUMMARY | 2020-01-14 11:28 | XMS REPORT ---
Author Author Su CORRAL Organization [facility] Address [address] [place], [place] [address] Care Team Providers Care Card Doffer Name Role Phone SHERITA CORRAL PCP SHERITA CORRAL PreferredProvider Allergies and Adverse Reactions Name Reaction Notes Vicodin nausea/vomting Plan of Treatment Planned Activity Comments Planned Date Planned Time Plan/Goal OVA AND PARASITE EXAM 05/13/2018 12:00 AM C. difficile A + B toxin stool 05/13/2018 12:00 AM WBC STOOL 05/13/2018 12:00 AM Medications Active Name Start Date [...] 3 times per day for 14 days Name Start Date Expiration Date SIG [...] oral route once daily Zofran (as hydrochloride) mg oral tablet 04/19/20142014 take 1 tablet [...] 12:00 AM Decadron, Per 1 Mg [facility]# [address]-11 Re viewed 04/23/2016 12:00 AM Toradol 60 Mg [facility]#8570-6470-77 Reviewed 05/04/2016 12:00 AM MRI LUMBAR SPINE [...] Reviewed 04/19/2014 12:00 AM Toradol 60 Mg NDC#8673-8294-85 Reviewed 04/19/2014 12:00 AM Phenergan, Up to 50 Mg NDC#2807-3819-43 Reviewed 04/16/2014 12:00 AM THER/PROPH/DIAG INJ SC/IM Reviewed 04/16/2014 12:00 AM Toradol 60 Mg NDC#9765-0239-33 Reviewed 04/16/2014 12:00 AM Phenergan, Up to 50 Mg NDC#3046-4610-42 Reviewed 09/10/2014 3:29 PM URINALYSIS AUTO W/O [...] 2018 2:54PM Diarrhea May 13 2018 8:15AM Payers Insurance Name Company Name Plan Name Plan Number Policy Number Kirk cy Group Number Start Date [facility] [id number] N/ A [facility] [id number] N/A [employer] Plan [id number] N/A History of Encounters Visit Date Visit Type Provider 05/09/2018 Office visit SHERITA SIMONS 04/26/2018 Office visit Jose Elias Joy DO 04/19/2018 Office visit SHERITA SIMONS 04/12/2018 Office visit SHERITA SIMONS 04/05/2018 Surgery Jose Elias Joy DO 04/03/2018 [facility] Grant Reyes MD 03/25/2018 Office visit [...]
--- OUTSIDE RECORDS SUMMARY | 2020-01-14 11:28 | XMS REPORT ---
Author Author Su CORRAL Organization [facility] Address [address] [place], [place] [address] Care Team Providers Care Proof Sorter Name Role Phone SHERITA CORRAL PCP SHERITA [...] 1 Mg [facility]# [address]-27 Re viewed 04/23/2016 12:00 AM Toradol 60 Mg [facility]#1342-1490-90 Reviewed 05/04/2016 12:00 AM MRI LUMBAR SPINE [...] Reviewed 04/19/2014 12:00 AM Toradol 60 Mg NDC#7010-8107-86 Reviewed 04/19/2014 12:00 AM Phenergan, Up to 50 Mg NDC#0025-7460-89 Reviewed 04/16/2014 12:00 AM THER/PROPH/DIAG INJ SC/IM Reviewed 04/16/2014 12:00 AM Toradol 60 Mg NDC#0179-8762-55 Reviewed 04/16/2014 12:00 AM Phenergan, Up to 50 Mg NDC#5681-1275-65 Reviewed 09/10/2014 3:29 PM URINALYSIS AUTO W/O [...] 4:08PM Encounter for examination following treatment at [facility] 2017 4:08PM Anemia Apr 19 2018 [...] out prior episode May 09 2018 2:54PM Payers Insurance Name Company Name Plan Name Plan Number Policy Number Kirk cy Group Number Start Date BCBS [facility] [id number] N/ A [facility] [id number] N/A [employer] Plan [id number] N/A History of Encounters Visit Date Visit Type Provider 05/09/2018 Office visit SHERITA SIMONS 04/26/2018 Office visit Jose Elias Joy DO 04/19/2018 Office visit SHERITA SIMONS 04/12/2018 Office visit SHERITA SIMONS 04/05/2018 Surgery Jose Elias Joy DO 04/03/2018 [facility] Grant Reyes MD 03/25/2018 Office visit SHERITA [...]
--- OUTSIDE RECORDS SUMMARY | 2020-01-14 11:28 | XMS REPORT ---
Author Author Su CORRAL Organization [facility] Address [address] [place], [place] [address] Care Team Providers Care Api Developer Name Role Phone SHERITA CORRAL PCP SHERITA CORRAL PreferredProvider Allergies and Adverse Reactions Name Reaction Notes NO KNOWN DRUG ALLERGIES Plan of Treatment Not available. Medications Active Name Start Date Estimated Completion Date SIG Co mments naproxen 500 mg oral tablet take 1 tablet by oral route folic acid 20 mg oral capsule take 2 caps ules by oral route daily cyclobenzaprine 10 mg oral tablet take 1 tablet (10 mg) by oral route 2 times per day methotrexate sodium 2.5 mg oral tablet TA KE 6 tabs once weekly Zebeta 10 mg oral tablet take 1 tablet (1 0 mg) by oral route once daily losartan 25 mg oral tablet take 1 tablet (25 mg) by oral route once daily Protonix 20 mg oral tablet,delayed release (DR/EC) take 2 tablets (40 mg) by oral route once daily Plaquenil 200 mg oral tablet Percocet 7.5-325 mg oral tablet 10/16/2016 take [...] per day in the morning and evening Name Start Date Expiration Date SIG Comments Percocet 5-325 mg oral tablet 04/19/2014 ta [...] oral route once daily for 4 days Zithromax Z-Rodney 250 mg oral tablet 08/11/2016 08/16/2016 take 2 tablets (500 mg) by oral route once daily for 1 day then 1 tablet (250 mg) by oral route once daily for 4 days Medrol (Rodney) 4 mg oral tablets,dose pack 08/11/2016 016 take as directed for 5 days Discontinued Name Start Date Discontinued Date [...] dysplasia Active 11/02/2017 Essential hypertension Active 04/20/2018 Vital Signs Date Time BP-Sys(mm[Hg] BP-Chery(mm[Hg]) HR(bpm) RR(rpm) Temp WT HT HC BMI BSA BMI Percentile O2 Sat(%) 04/19/2018 9:35:00 AM 124 mmHg 76 mmHg [...] Comments denies alcohol use Tobacco Former smoker stopped smoking thre e years ago 12th Grade Exercises regularly History of Procedures Date Ordered Description Order Status 04/23/2016 12:00 AM Decadron, Per 1 Mg [facility]# [address]-92 Re viewed 04/23/2016 12:00 AM Toradol 60 Mg [facility]#3286-0730-70 Reviewed 05/04/2016 12:00 AM MRI LUMBAR SPINE [...] Reviewed 04/19/2014 12:00 AM Toradol 60 Mg [facility]#8443-7511-77 Reviewed 04/19/2014 12:00 AM Phenergan, Up to 50 Mg [facility]#4509-4357-36 Reviewed 04/16/2014 12:00 AM THER/PROPH/DIAG INJ SC/IM Reviewed 04/16/2014 12:00 AM Toradol 60 Mg ND#4160-0974-50 Reviewed 04/16/2014 12:00 AM Phenergan, Up to 50 Mg [facility]#6719-2462-62 Reviewed 09/10/2014 3:29 PM URINALYSIS AUTO W/O [...] 11/02/2017 Fibromuscular dysplasia 11/02/2017 Essential hypertension 04/20/2018 Dysuria Apr 16 2014 10:36AM Flank pain, [...] low back pain with right-sided sciatica Au g 10 2015 8:43AM Arthralgia of right hip [...] 4:08PM Encounter for examination following treatment at [facility] 2017 4:08PM Anemia Apr 19 2018 9:47AM Hypokalemia Apr 19 2018 9:47AM Severe Resolved Infectious colitis Apr 19 2018 9:36AM Fibromuscular dysplasia Apr 19 2018 9:36AM Rheumatoid arthritis, involving unspecif ied site, unspecified rheumatoid factor presence Apr 19 2018 9:36AM Fibromyalgia Apr 19 2018 9:36AM Essential hypertension Apr 19 2018 9:36AM Payers Insurance Name Company Name Plan Name Plan Number Policy Number Kirk cy Group Number [facility] [id number] N/ A [facility] [id number] N/A [employer] [id number] N/A History of Encounters Visit Date Visit Type Provider 04/19/2018 Office visit SHERITA SIMONS 04/12/2018 Office visit SHERITA SIMONS 04/05/2018 Surgery Jose Elias Joy DO 04/03/2018 [facility] Grant Reyes MD 03/25/2018 Office [...]
--- OUTSIDE RECORDS SUMMARY | 2020-01-14 11:29 | XMS REPORT ---
Author Author Su CORRAL Organization [facility] Address [address] [place] [id number] Care Team Providers Care Bond Analyst Name Role Phone SHERITA CORRAL PCP Unavailable Allergies and Adverse Reactions Name Reaction Notes [...] BY ORAL ROUTE EVERY DAY AT BEDTIME Name Start Date Expiration Date SIG Comments [...] Active History of renal calculi Active 04/22/2014 Vital Signs Date Time BP-Sys(mm[Hg] BP-Chery(mm[Hg]) HR(bpm) RR(rpm) Temp WT HT HC BMI BSA BMI Percentile O2 Sat(%) 07/05/2017 3:55:00 PM 128 mmHg 80 mmHg 60 bpm 16 rpm 98 F 220 lbs 64 in 37.76 kg/m2 2.12 m2 98 % 04/29/2016 8:42:00 AM 132 mmHg 80 mmHg 78 bpm 18 rpm 97.4 F 223 lbs 63 in 39.5023 kg/m 2.1204 m 99 % 04/23/2016 10:00:00 AM 125 mmHg 78 mmHg 68 bpm 16 rpm 96.9 F 220 lbs 63 in 38.97 kg/m2 2.11 m2 96 % 11/12/2015 2:33:00 PM 125 mmHg 72 mmHg 80 bpm 16 rpm 97.1 F 232 lbs 64 in 39.8223 kg/m 2.1799 m 100 % 09/27/2015 11:18:00 AM 138 mmHg 80 mmHg 74 bpm 18 rpm 97.5 F 227 lbs 64 in 38.96 kg/m2 2.16 m2 99 % 06/11/2015 3:19:00 PM 115 mmHg 68 mmHg 86 bpm 18 rpm 97.9 F 225 lbs 63 in 39.8566 kg/m 2.1299 m 96 % 09/10/2014 3:27:00 PM 140 mmHg 80 mmHg 94 bpm 22 rpm 98.6 F 220 lbs 64 in 37.76 kg/m2 2.12 m2 99 % 04/19/2014 9:21:00 AM 150 mmHg 80 mmHg 88 bpm 20 rpm 98.1 F 217 lbs 64 in 37.2476 kg/m 2.1082 m 97 % 04/16/2014 11:06:00 AM 138 mmHg 82 mmHg 99 bpm 18 rpm 98.3 F 217 lbs 64 in 37.25 kg/m2 2.11 m2 98 % Social History Name Description Comments denies alcohol use Tobacco Former smoker stopped smoking thre e years ago 12th Grade Exercises regularly History of Procedures Date Ordered Description Order Status 04/23/2016 12:00 AM Decadron, Per 1 Mg [place]# [address]-21 Re viewed 04/23/2016 12:00 AM Toradol 60 Mg NDC#9487-9769-93 Reviewed 05/04/2016 12:00 AM MRI LUMBAR SPINE W/O DYE Returned 04/16/2014 12:00 AM URINE BACTERIA CULTURE Reviewed 04/16/2014 12:[address] ABD & PELVIS W/O CONTRAST Reviewed 04/16/2014 11:09 AM URINALYSIS AUTO W/O SCOPE Reviewed 04/19/2014 12:00 AM THER/PROPH/DIAG INJ SC/IM Reviewed 04/19/2014 12:00 AM Toradol 60 Mg NDC#[address]-29 Reviewed 04/19/2014 12:00 AM Phenergan, Up to 50 Mg ND#6081-5426-49 Reviewed 04/16/2014 12:00 AM THER/PROPH/DIAG INJ SC/IM Reviewed 04/16/2014 12:00 AM Toradol 60 Mg NDC#0400-4485-19 Reviewed 04/16/2014 12:00 AM Phenergan, Up to 50 Mg ND#8264-5784-64 Reviewed 09/10/2014 3:29 PM URINALYSIS AUTO W/O [...] Diarrhea Hypercholesterolemia History of renal calculi 04/22/2014 Dysuria Apr 16 2014 10:36AM Flank pain, [...] Bilateral impacted cerumen Jul 05 2017 3:55PM Payers Insurance Name Company Name Plan Name Plan Number Policy Number Kirk cy Group Number [id number] N/ A [facility] [id number] N/A [employer] [id number] N/A History of Encounters Visit Date Visit Type Provider 07/05/2017 Office visit HSERITA SIMONS 04/29/2016 Office visit SHERITA SIMONS 04/23/2016 Office visit SHERITA SIMONS 11/12/2015 Office visit SHERITA SIMONS 09/27/2015 Office visit SHERITA SIMONS 06/11/2015 Office visit SHERITA SIMONS 09/10/2014 Office visit SHERITA SIMONS 04/19/2014 Office visit SHERITA SIMONS 04/16/2014 Office visit SHERITA SIMONS
--- OUTSIDE RECORDS SUMMARY | 2020-01-14 11:29 | XMS REPORT ---
Author Author Su CORRAL Organization [facility] Address [address] [place], [place] [address] Care Team Providers Care Salt Washer Harvesting Station Name Role Phone SHERITA CORRAL PCP Unavailable [...] by intranasal route 2 times per day Name Start Date Expiration Date SIG Comments [...] 12:00 AM Decadron, Per 1 Mg ND# [address]-55 Re viewed 04/23/2016 12:00 AM Toradol 60 Mg N[facility]#1177-0629-86 Reviewed 05/04/2016 12:00 AM MRI LUMBAR SPINE W/O DYE Returned 07/07/2017 12:00 AM REMOVE IMPACTED EAR WAX UNI Reviewed 04/16/2014 12:00 AM URINE BACTERIA CULTURE Reviewed 04/16/2014 12:[address] ABD & PELVIS W/O CONTRAST Reviewed 04/16/2014 11:09 AM URINALYSIS AUTO W/O SCOPE Reviewed 04/19/2014 12:00 AM THER/PROPH/DIAG INJ SC/IM Reviewed 04/19/2014 12:00 AM Toradol 60 Mg NDC#1827-8898-93 Reviewed 04/19/2014 12:00 AM Phenergan, Up to 50 Mg ND#5084-2328-47 Reviewed 04/16/2014 12:00 AM THER/PROPH/DIAG INJ SC/IM Reviewed 04/16/2014 12:00 AM Toradol 60 Mg NDC#4811-1149-73 Reviewed 04/16/2014 12:00 AM Phenergan, Up to 50 Mg NDC#1551-6383-02 Reviewed 09/10/2014 3:29 PM URINALYSIS AUTO W/O [...] Bilateral impacted cerumen Jul 07 2017 7:05AM Payers Insurance Name Company Name Plan Name Plan Number Policy Number Kirk cy Group [facility] [id number] [facility]/ [facility] [id number] N/A [employer] [id number] N/A History of Encounters Visit Date Visit Type Provider 07/07/2017 Office visit SHERITA SIMONS 07/05/2017 Office visit SHERITA SIMONS 04/29/2016 Office visit SHERITA SIMONS 04/23/2016 Office visit SHERITA SIMONS 11/12/2015 Office visit SHERITA SIMONS 09/27/2015 Office visit SHERITA SIMONS 06/11/2015 Office visit SHERITA SIMONS 09/10/2014 Office visit SHERITA SIMONS 04/19/2014 Office visit SHERITA SIMONS 04/16/2014 Office visit SHERITA SIMONS
--- OUTSIDE RECORDS SUMMARY | 2020-01-14 11:29 | XMS REPORT ---
Author Author uS CORRAL Organization [facility] Address [address] [place], [place] [address] Care Team Providers Care Skein Spooler Name Role Phone SHERITA CORRAL PCP SHERITA [...] 04/23/2016 12:00 AM Decadron, Per 1 Mg [facility]# [address]-73 Re viewed 04/23/2016 12:00 AM Toradol 60 Mg [facility]#4929-5050-86 Reviewed 05/04/2016 12:00 AM MRI LUMBAR SPINE [...] Reviewed 04/19/2014 12:00 AM Toradol 60 Mg [facility]#2546-5445-96 Reviewed 04/19/2014 12:00 AM Phenergan, Up to 50 Mg [facility]#2331-1214-79 Reviewed 04/16/2014 12:00 AM THER/PROPH/DIAG INJ SC/IM Reviewed 04/16/2014 12:00 AM Toradol 60 Mg ND#2280-1757-64 Reviewed 04/16/2014 12:00 AM Phenergan, Up to 50 Mg [facility]#4519-0525-30 Reviewed 09/10/2014 3:29 PM URINALYSIS AUTO W/O [...] 4:08PM Encounter for examination following treatment at [facility] 2017 4:08PM Anemia Apr 19 2018 [...] Number Kirk cy Group Number [facility] [id number] N/ A [facility] [id number] N/A [employer] [id number] N/A History of Encounters Visit Date Visit Type Provider 04/19/2018 Office visit SHERITA SIMONS 04/12/2018 Office visit SHERITA SIMONS 04/05/2018 Surgery Jose Elias Joy DO 04/03/2018 [facility] Grant Reyes MD 03/25/2018 Office [...]
--- OUTSIDE RECORDS SUMMARY | 2020-01-14 11:29 | XMS REPORT ---
Author Author Su CORRAL Organization [facility] Address [address] [place], [place] [address] Care Team Providers Care Karate Instructor Name Role Phone SHERITA CORRAL PCP SHERITA [...] Nephrolithiasis Active 11/02/2017 Fibromuscular dysplasia Active 11/02/2017 Vital Signs Date Time BP-Sys(mm[Hg] BP-Chery(mm[Hg]) HR(bpm) RR(rpm) Temp WT HT HC BMI BSA BMI Percentile O2 Sat(%) 04/12/2018 4:07:00 PM 99 mmHg 60 mmHg [...] 04/23/2016 12:00 AM Decadron, Per 1 Mg [facility]# [address]-50 Re viewed 04/23/2016 12:00 AM Toradol 60 Mg NDC#5341-0387-10 Reviewed 05/04/2016 12:00 AM MRI LUMBAR SPINE W/O DYE Returned 07/07/2017 12:00 AM REMOVE IMPACTED EAR WAX UNI Reviewed 10/26/2017 12:00 AM Decadron 8mg Injection Reviewed 10/26/2017 12:00 AM Depo-Medrol 80mg Injection Reviewed 11/02/2017 12:00 AM Toradol 60 Mg Injection Reviewed 10/26/2017 12:00 AM THER/PROPH/DIAG INJ SC/IM Reviewed 04/16/2014 12:00 AM URINE BACTERIA CULTURE Reviewed 04/16/2014 12:[address] ABD & PELVIS W/O CONTRAST Reviewed 04/16/2014 11:09 AM URINALYSIS AUTO W/O SCOPE Reviewed 04/19/2014 12:00 AM THER/PROPH/DIAG INJ SC/IM Reviewed 04/19/2014 12:00 AM Toradol 60 Mg ND#3566-4179-54 Reviewed 04/19/2014 12:00 AM Phenergan, Up to 50 Mg ND#5884-5816-86 Reviewed 04/16/2014 12:00 AM THER/PROPH/DIAG INJ SC/IM Reviewed 04/16/2014 12:00 AM Toradol 60 Mg NDC#7767-6248-66 Reviewed 04/16/2014 12:00 AM Phenergan, Up to 50 Mg ND#7591-7599-27 Reviewed 09/10/2014 3:29 PM URINALYSIS AUTO W/O [...] disease 11/02/2017 Nephrolithiasis 11/02/2017 Fibromuscular dysplasia 11/02/2017 Dysuria Apr 16 2014 10:36AM Flank pain, [...] 9:15AM Essential hypertension Mar 25 2018 9:15AM Payers Insurance Name Company Name Plan Name Plan Number Policy Number Kirk cy Group Number [facility] Date [facility] [id number] N/ A [facility] [id number] N/A [employer] [id number] N/A History of Encounters Visit Date Visit Type Provider 04/12/2018 Office visit SHERITA SIMONS 04/05/2018 Surgery [...]
--- OUTSIDE RECORDS SUMMARY | 2020-01-14 11:29 | XMS REPORT ---
Author Author Su CORRAL Organization [facility] Address [address] [place], [place] [address] Care Team Providers Care Rn Behavioral Health Name Role Phone SHERITA CORRAL PCP SHERITA CORRAL PreferredProvider Allergies and Adverse Reactions Name Reaction Notes NO KNOWN DRUG ALLERGIES Plan of Treatment Planned Activity Comments Planned Date Planned Time Plan/Goal CBC with Differential 04/19/2018 12:00 AM CMP 04/19/2018 12:00 AM Medications Active Name Start Date [...] 04/23/2016 12:00 AM Decadron, Per 1 Mg [facility]# [address]-25 Re viewed 04/23/2016 12:00 AM Toradol 60 Mg [facility]#3068-4252-85 Reviewed 05/04/2016 12:00 AM MRI LUMBAR SPINE W/O DYE Returned 07/07/2017 12:00 AM REMOVE IMPACTED EAR WAX UNI Reviewed 10/26/2017 12:00 AM Decadron 8mg Injection Reviewed 10/26/2017 12:00 AM Depo-Medrol 80mg Injection Reviewed 11/02/2017 12:00 AM Toradol 60 Mg Injection Reviewed 10/26/2017 12:00 AM THER/PROPH/DIAG INJ SC/IM Reviewed 04/19/2018 12:00 AM ROUTINE VENIPUNCTURE Reviewed 04/16/2014 12:00 AM URINE BACTERIA CULTURE Reviewed 04/16/2014 12:[address] ABD & PELVIS W/O CONTRAST Reviewed 04/16/2014 11:09 AM URINALYSIS AUTO W/O SCOPE Reviewed 04/19/2014 12:00 AM THER/PROPH/DIAG INJ SC/IM Reviewed 04/19/2014 12:00 AM Toradol 60 Mg [facility]#6526-0982-15 Reviewed 04/19/2014 12:00 AM Phenergan, Up to 50 Mg [facility]#6820-0930-97 Reviewed 04/16/2014 12:00 AM THER/PROPH/DIAG INJ SC/IM Reviewed 04/16/2014 12:00 AM Toradol 60 Mg ND#6938-1233-74 Reviewed 04/16/2014 12:00 AM Phenergan, Up to 50 Mg [facility]#7535-6671-62 Reviewed 09/10/2014 3:29 PM URINALYSIS AUTO W/O [...] 2018 9:47AM Hypokalemia Apr 19 2018 9:47AM Payers Insurance Name Company Name Plan Name Plan Number Policy Number Kirk cy Group Number Start Date BCBS [facility] [id number] N/ A [facility] [id number] N/A [employer] [id number] N/A History of Encounters Visit Date Visit Type Provider 04/19/2018 Office visit SHERITA SIMONS 04/12/2018 Office visit SHERITA SIMONS 04/05/2018 Surgery Jose Elias Joy DO 04/03/2018 [facility] Grant [...]
--- OUTSIDE RECORDS SUMMARY | 2020-01-14 11:29 | XMS REPORT ---
Author Author Su CORRAL Organization [facility] Address [address] [place], [place] [address] Care Team Providers Care Stonemason Name Role Phone SHERITA CORRAL PCP SHERITA [...] 04/23/2016 12:00 AM Decadron, Per 1 Mg [facility]# [address]-61 Re viewed 04/23/2016 12:00 AM Toradol 60 Mg NDC#9446-8943-76 Reviewed 05/04/2016 12:00 AM MRI LUMBAR SPINE [...] Reviewed 04/19/2014 12:00 AM Toradol 60 Mg ND#2243-6029-84 Reviewed 04/19/2014 12:00 AM Phenergan, Up to 50 Mg ND#7700-7840-64 Reviewed 04/16/2014 12:00 AM THER/PROPH/DIAG INJ SC/IM Reviewed 04/16/2014 12:00 AM Toradol 60 Mg NDC#1939-75[address]-81 Reviewed 04/16/2014 12:00 AM Phenergan, Up to 50 Mg ND#0902-0172-22 Reviewed 09/10/2014 3:29 PM URINALYSIS AUTO W/O [...] 4:08PM Encounter for examination following treatment at [facility] 2017 4:08PM Payers Insurance Name Company Name Plan Name Plan Number Policy Number Kirk cy Group Number [facility] [id number] N/ A [facility] [id number] N/A [employer] [...]
--- OUTSIDE RECORDS SUMMARY | 2020-01-14 11:30 | XMS REPORT ---
Author Author Su CORRAL Organization [facility] Address [address] [place], [place] [address] Care Team Providers Care C D Still Operator Name Role Phone SHERITA CORRAL PCP Unavailable [...] daily Plaquenil 200 mg oral tablet Percocet 5-325 mg oral tablet 04/29/2016 ta ke 1 - 2 tablets by oral route every 4-6 hours as needed Name Start Date Expiration Date SIG Comments [...] oral route once daily for 4 days Discontinued Name Start Date Discontinued Date [...] HC BMI BSA BMI Percentile O2 Sat(%) 04/29/2016 8:42:00 AM 132 mmHg 80 mmHg [...] of Procedures Date Ordered Description Order Status 04/16/2014 12:00 AM URINE BACTERIA CULTURE Reviewed 04/16/2014 12:[address] ABD & PELVIS W/O CONTRAST Reviewed 04/16/2014 11:09 AM URINALYSIS AUTO W/O SCOPE Reviewed 04/19/2014 12:00 AM THER/PROPH/DIAG INJ SC/IM Reviewed 04/19/2014 12:00 AM Toradol 60 Mg NDC#6774-5672-34 Reviewed 04/19/2014 12:00 AM Phenergan, Up to 50 Mg NDC#7505-5273-83 Reviewed 04/16/2014 12:00 AM THER/PROPH/DIAG INJ SC/IM Reviewed 04/16/2014 12:00 AM Toradol 60 Mg NDC#4628-8638-33 Reviewed 04/16/2014 12:00 AM Phenergan, Up to 50 Mg NDC#2183-2454-00 Reviewed 09/10/2014 3:29 PM URINALYSIS AUTO W/O SCOPE Reviewed 09/10/2014 12:00 AM URINALYSIS AUTO W/O SCOPE Reviewed 09/10/2014 12:00 AM URINE BACTERIA CULTURE Returned Results Summary Data and Description Results 04/16/2014 11:09 AM Bilirub [...] 2016 10:00AM Fibromyalgia Apr 23 2016 10:00AM Payers Insurance Name Company Name Plan Name Plan Number Policy Number [employer] Group Number Start Date BCBS [facility] [id number] N/ A [facility] [id number] N/A [employer] [id number] N/A History of Encounters Visit Date Visit Type Provider 04/29/2016 Office visit SHERITA SIMONS 04/23/2016 Office visit SHERITA SIMONS 11/12/2015 Office visit SHERITA SIMONS 09/27/2015 Office visit SHERITA SIMONS 06/11/2015 Office visit SHERITA SIMONS 09/10/2014 Office visit SHERITA SIMONS 04/19/2014 Office visit SHERITA SIMONS 04/16/2014 Office visit SHERITA SIMONS
--- OUTSIDE RECORDS SUMMARY | 2020-01-14 11:30 | XMS REPORT ---
Author Author Su CORRAL Organization [facility] Address [address] [place], [place] [address] Care Team Providers Care Shear Operator Name Role Phone SHERITA CORRAL PCP [...] AM Decadron, Per 1 Mg [facility]# [id number] Re viewed 04/23/2016 12:00 AM Toradol 60 Mg ND#5898-1543-66 Reviewed 05/04/2016 12:00 AM MRI LUMBAR SPINE W/O DYE Returned 04/16/2014 12:00 AM URINE BACTERIA CULTURE Reviewed 04/16/2014 12:[address] ABD & PELVIS W/O CONTRAST Reviewed 04/16/2014 11:09 AM URINALYSIS AUTO W/O SCOPE Reviewed 04/19/2014 12:00 AM THER/PROPH/DIAG INJ SC/IM Reviewed 04/19/2014 12:00 AM Toradol 60 Mg ND#0434-3975-52 Reviewed 04/19/2014 12:00 AM Phenergan, Up to 50 Mg [facility]#0127-5873-83 Reviewed 04/16/2014 12:00 AM THER/PROPH/DIAG INJ SC/IM Reviewed 04/16/2014 12:00 AM Toradol 60 Mg NDC#8825-9953-31 Reviewed 04/16/2014 12:00 AM Phenergan, Up to 50 Mg [facility]#1202-9271-39 Reviewed 09/10/2014 3:29 PM URINALYSIS AUTO W/O [...] Number Start Date BCBS [facility] [id number] N/ A [facility] [id number] N/A [employer] [...]
--- OUTSIDE RECORDS SUMMARY | 2020-01-14 11:30 | XMS REPORT ---
Author Author Su CORRAL Organization [facility] Address [address] [place] [address] Care Team Providers Care Manager Steel Name Role Phone SHERITA CORRAL PCP SHERITA [...] HC BMI BSA BMI Percentile O2 Sat(%) 10/26/2017 11:09:00 AM 136 mmHg 78 mmHg [...] 12:00 AM Decadron, Per 1 Mg [facility]# [address]-46 Re viewed 04/23/2016 12:00 AM Toradol 60 Mg [facility]#6052-1359-29 Reviewed 05/04/2016 12:00 AM MRI LUMBAR SPINE W/O DYE Returned 07/07/2017 12:00 AM REMOVE IMPACTED EAR WAX UNI Reviewed 10/26/2017 12:00 AM Decadron 8mg Injection Reviewed 10/26/2017 12:00 AM Depo-Medrol 80mg Injection Reviewed 10/26/2017 12:00 AM THER/PROPH/DIAG INJ SC/IM Reviewed 04/16/2014 12:00 AM URINE BACTERIA CULTURE Reviewed 04/16/2014 12:[address] ABD & PELVIS W/O CONTRAST Reviewed 04/16/2014 11:09 AM URINALYSIS AUTO W/O SCOPE Reviewed 04/19/2014 12:00 AM THER/PROPH/DIAG INJ SC/IM Reviewed 04/19/2014 12:00 AM Toradol 60 Mg NDC#0023-0553-26 Reviewed 04/19/2014 12:00 AM Phenergan, Up to 50 Mg NDC#1195-1486-48 Reviewed 04/16/2014 12:00 AM THER/PROPH/DIAG INJ SC/IM Reviewed 04/16/2014 12:00 AM Toradol 60 Mg NDC#9372-5706-25 Reviewed 04/16/2014 12:00 AM Phenergan, Up to 50 Mg NDC#2114-0498-38 Reviewed 09/10/2014 3:29 PM URINALYSIS AUTO W/O [...] Fibromuscular dysplasia Stable Oct 26 2017 11:10AM Payers Insurance Name Company Name Plan Name Plan Number Policy Number [employer] Group Number Start Date BCBS [facility] [id number] N/ A [facility] [id number] N/A [employer] [id number] N/A History of Encounters Visit Date Visit Type Provider 10/26/2017 Office visit SHERITA SIMONS 07/07/2017 Office [...]
--- OUTSIDE RECORDS SUMMARY | 2020-01-14 11:30 | XMS REPORT ---
Author Author Su CORRAL Organization [facility] Address [address] [place], [place] [address] Care Team Providers Care Surgical Consultant Name Role Phone SHERITA CORRAL PCP Unavailable Allergies and Adverse Reactions Name Reaction Notes NO KNOWN DRUG ALLERGIES Plan of Treatment Planned Activity Comments Planned Date Planned Time Plan/Goal MRI LUMBAR SPINE W/O DYE 05/04/2016 12:00 AM Medications Active Name Start Date [...] Reviewed 04/19/2014 12:00 AM Toradol 60 Mg NDC#2128-2764-99 Reviewed 04/19/2014 12:00 AM Phenergan, Up to 50 Mg NDC#2699-6440-00 Reviewed 04/16/2014 12:00 AM THER/PROPH/DIAG INJ SC/IM Reviewed 04/16/2014 12:00 AM Toradol 60 Mg NDC#6973-7158-55 Reviewed 04/16/2014 12:00 AM Phenergan, Up to 50 Mg NDC#4092-5044-44 Reviewed 09/10/2014 3:29 PM URINALYSIS AUTO W/O [...] 2016 10:00AM Sciatica May 04 2016 11:38AM Payers Insurance Name Company Name Plan Name Plan Number Policy Number [employer] Group Number Start Date BCBS [facility] [id number] N/ A [facility] [id number] N/A [employer] [id number] N/A History of Encounters Visit Date Visit Type Provider 04/29/2016 Office visit SHERITA SIMONS 04/23/2016 Office visit SHERIAT SIMONS 11/12/2015 Office visit SHERITA SIMONS 09/27/2015 Office visit SHERITA SIMONS 06/11/2015 Office visit SHERITA SIMONS 09/10/2014 Office visit SHERITA SIMONS 04/19/2014 Office visit SHERITA SIMONS 04/16/2014 Office visit SHERITA SIMONS
--- OUTSIDE RECORDS SUMMARY | 2020-01-14 11:30 | XMS REPORT ---
Author Author Su CORRAL Organization [facility] Address [address] [place], [place] [address] Care Team Providers Care Engineering Design Supervisor Name Role Phone SHERITA CORRAL PCP Unavailable [...] Reviewed 04/19/2014 12:00 AM Toradol 60 Mg NDC#6386-2139-43 Reviewed 04/19/2014 12:00 AM Phenergan, Up to 50 Mg NDC#6901-2758-99 Reviewed 04/16/2014 12:00 AM THER/PROPH/DIAG INJ SC/IM Reviewed 04/16/2014 12:00 AM Toradol 60 Mg NDC#7061-2230-39 Reviewed 04/16/2014 12:00 AM Phenergan, Up to 50 Mg NDC#8875-8091-99 Reviewed 09/10/2014 3:29 PM URINALYSIS AUTO W/O [...] 2016 8:43AM Fibromyalgia Apr 29 2016 8:43AM Payers Insurance Name Company Name Plan Name Plan Number Policy Number [employer] Group Number Start Date BCBS [facility] [id number] N/ A [facility] [id number] N/A [employer] Plan [...]
--- OUTSIDE RECORDS SUMMARY | 2020-01-14 11:31 | XMS REPORT ---
Author Author [facility] Medic al StaffDASHA Organization [facility] Address [address] [id number] Phone [phone] Care Team Providers Care Speech And Hearing Director Name Role Phone KASIA ANDERSON APRN PP [phone] Summary purpose TRANSITION OF CARE AUTO GENERATION Chief Complaint and Reason for Visit No authorized Reason for Visit (Admitting Diagnosis) is available for this visit . Problem list No authorized problems tracked for continuity of care are available for this vis it. Encounters No authorized problems tracked for encounter diagnoses are available for this vi sit. Medications No medications recorded for this patient visit Allergies, adverse reactions, alerts No allergy information is available for this patient. Immunizations No immunizations recorded for this patient visit Relevant diagnostic tests and/or laboratory data RESULTS Chemistry :37:00 Result Normal Range Units TP - Total Protein 7.6 6.0-8.3 g /dl Albumin 4.4 3.5-5 g/dl Bilirubin - Total 0.6 0.1-1.0 mg /dl Direct Bilirubin 0.1 0-0.3 mg/ dl Bilirubin Indirect 0.5 0.1-1.0 m g/dl AST 20 10-42 IU/L ALT 26 12-65 IU/L ALP H 78 25-72 IU/L Albumin/Globulin Ratio 1.4 0-8 Hematology [id number]:37:00 Result Normal Range Units WBC 6.7 4.8-10.8 103/uL RBC 4.5 4.2-5.4 106/uL HGB 13.4 12.0-16.0 g/dl HCT 40.3 36.9-47.0 % MCV 90.0 81-99 FL MCH 29.9 27-31 pg MCHC 33.3 33-37 g/dl RDW 13.6 11.5-15.5 % PLT 269 130-400 103/uL MPV H 12.5 7.3-10.4 FL History of procedures Procedure Code Code Type Description Date Performed Performing Physician 42216 CPT-4 COMPLETE CBC, AUTOMATED 01-28-2016 LANA ANDERSON [id number] CPT-4 HEPATIC FUNCTION PANEL 01-28-2016 DANNIELLE ANDERSON Functional status No functional or cognitive status observations are available for this visit. Vital signs No authorized vital signs are available for this visit. Social history No Social History or smoking status observations were recorded for this visit. ( Unknown if ever smoked.) Treatment Plan No treatment plan text is available for this visit. Hospital discharge instructions No discharge instruction text is available for this visit.
--- OUTSIDE RECORDS SUMMARY | 2020-01-14 11:31 | XMS REPORT ---
Author Author Su ALVARENGA Organization [facility] Address [address] [place], [place] [address] Care Team Providers Care Janitor Helper Name Role Phone SHAWN ALVARENGA Unavailable PROBLEMS Type Condition ICD9-CM Code SJP23-LH Code Onset Dates Condition S tatus SNOMED Code Problem Atherosclerosis of renal artery I70.1 Jul, Active 43170729 Problem Essential (primary) hypertension I10 Jul, Active 35560304 Problem HTN, essential-Unspe 401.9 Dec, Inacti ve 62440341 Problem Proteinuria, unspecified R80.9 Jul, Ac tive 79674543 Problem Calculus of kidney N20.0 Jul, Active 57641705 Problem Rheumatoid arthritis, unspecified M06.9 Jul Active 45049037 ALLERGIES No Information ENCOUNTERS Encounter Location Date Diagnosis [address] [facility] [address] [place] [address] Sep, [facility] [address] [facility] [place] [address] Aug, Essential (primary) hypertension I10 ; C alculus of kidney N20.0 and Hypokalemia E87.6 [facility] [address] [facility] [place] [place] [address] Jun, [facility] [place] [address] [facility] [place] [address] Apr, [facility] [place] [address] [facility] [place] [address] Apr, [facility] [address] [facility] [address] [place] [address] Sep, [address] [place] [address] Sep, [facility] [address] [place] [address] Sep, [facility] [address] [place] [address] Aug, [facility] [address] [address] Dec, [facility] [address] [address] [place] [address] Jun, [facility] [address] [address] [place] [address] January, [facility] [address] [facility] [place] [address] Jul, Essential (primary) hypertension I10 [facility] [address] [facility] [address] [place] [address] Jun, [facility] [address] [address] [place] [address] Dec, [facility] [address] [place] [address] Jun, [facility] [address] [facility] [place] [place] [address] Jul, Proteinuria, unspecified R80.9 ; Atheros clerosis of renal artery I70.1 ; Rheumatoid arthritis, unspecified M06.9 and Calculus of kidney N20.0 [facility] [address] [place] [address] Feb, [facility] [address] [place] [address] Apr, [facility] [address] [place] [address] January, [facility] [address] [place] [address] Jul, [facility] [address] [place] [address] May, [facility] [address] [place] [address] Feb, [facility] [address] [place] [address] Dec, IMMUNIZATIONS No Known Immunizations SOCIAL HISTORY Never Assessed REASON FOR VISIT LAB ORDERS PLAN OF CARE Activity Details Pending Test CBC (INCLUDES DIFF/PLT) Pending Test RENAL FUNCTION PANEL Pending Test URINALYSIS, COMPLETE W/REFLE X TO CULTURE VITAL SIGNS MEDICATIONS Unknown Medications RESULTS No Results PROCEDURES No Known procedures INSTRUCTIONS MEDICATIONS ADMINISTERED No Known Medications MEDICAL (GENERAL) HISTORY Type Description Date Surgical History Back Surgery-History of back surgery Surgical History Back Surgery-history of back surgery Surgical History Back Surgery-history of back surgery Surgical History Cholecystectomy-History of cholecystecto my 10/13/2018 Surgical History Cholecystectomy-history of cholecystecto my 10/14/2017 Surgical History Cholecystectomy-history of cholecystecto my 10/16/2016 Surgical History Cholecystectomy-history of cholecystecto my 01/05/2013 Surgical History Cholecystectomy-history of cholecystecto my 01/11/2015 Surgical History Cholecystectomy-history of cholecystecto my 01/26/2014 Surgical History Cholecystectomy-History of cholecystecto my 07/04/2012 Surgical History Cholecystectomy-History of cholecystecto my 07/13/2013 Surgical History Cholecystectomy-history of cholecystecto my 07/13/2014 Surgical History Cholecystectomy-history of cholecystecto my 08/18/2011 Surgical History Cholecystectomy-history of cholecystecto my 09/05/2015 Surgical History Hysterectomy-History of hysterectomy Surgical History Hysterectomy-history of hysterectomy Surgical History Hysterectomy-history of hysterectomy Surgical History Hysterectomy-history of hysterectomy Surgical History Hysterectomy-history of hysterectomy Surgical History Hysterectomy-history of hysterectomy 05/2014 Surgical History Hysterectomy-History of hysterectomy Surgical History Hysterectomy-History of hysterectomy Surgical History Hysterectomy-history of hysterectomy Surgical History Hysterectomy-history of hysterectomy Surgical History Hysterectomy-history of hysterectomy Surgical History prior surgery-prior surgery BIOPSY-BOTH BREASTS [facility] 08/18/2011 Surgical History prior surgery-Prior surgery HYSTERECTOMY 1993 [facility]; KIDNEY STONE 1994? [facility]; GALLBLADDER 2003 [facility]; TONSILS REMOVED A CHILD; BIOPSY-BOTH BREASTS [facility] 01/11/2008 Surgical History Tonsillectomy-History of tonsillectomy 0 10/13/2018 Surgical History Tonsillectomy-history of tonsillectomy 0 10/14/2017 Surgical History Tonsillectomy-history of tonsillectomy 0 10/16/2016 Surgical History Tonsillectomy-history of tonsillectomy 0 01/05/2013 Surgical History Tonsillectomy-history of tonsillectomy 0 01/11/2015 Surgical History Tonsillectomy-history of tonsillectomy 0 01/26/2014 Surgical History Tonsillectomy-History of tonsillectomy 1 Surgical History Tonsillectomy-History of tonsillectomy 1 Surgical History Tonsillectomy-history of tonsillectomy 1 Surgical History Tonsillectomy-history of tonsillectomy 1 10/18/2010 Surgical History Tonsillectomy-history of tonsillectomy 1 11/06/2014
--- OUTSIDE RECORDS SUMMARY | 2020-01-14 11:31 | XMS REPORT ---
Author Author Su CORRAL Organization [facility] Address [address] [place] [address] Care Team Providers Care Fee Clerk Name Role Phone SHERITA CORRAL PCP Unavailable [...] once daily Plaquenil 200 mg oral tablet Name Start Date Expiration Date SIG Comments [...] HC BMI BSA BMI Percentile O2 Sat(%) 09/27/2015 11:18:00 AM 138 mmHg 80 mmHg [...] Reviewed 04/19/2014 12:00 AM Toradol 60 Mg [facility]#3571-3110-21 Reviewed 04/19/2014 12:00 AM Phenergan, Up to 50 Mg [facility]#4089-9576-01 Reviewed 04/16/2014 12:00 AM THER/PROPH/DIAG INJ SC/IM Reviewed 04/16/2014 12:00 AM Toradol 60 Mg [facility]#4932-8814-04 Reviewed 04/16/2014 12:00 AM Phenergan, Up to 50 Mg [facility]#8175-1699-14 Reviewed 09/10/2014 3:29 PM URINALYSIS AUTO W/O [...] Sebaceous Cyst Stable Sep 27 2015 11:19AM Payers Insurance Name Company Name Plan Name Plan Number Policy Number [employer] Group Number Start Date BCBS [facility] [id number] N/ A [facility] [id number] N/A [employer] [id number] N/A History of Encounters Visit Date Visit Type Provider 09/27/2015 Office visit SHERITA SIMONS 06/11/2015 Office visit SHERITA SIMONS 09/10/2014 Office visit SHERITA SIMONS 04/19/2014 Office visit SHERITA SIMONS 04/16/2014 Office visit SHERITA SIMONS
--- OUTSIDE RECORDS SUMMARY | 2020-01-14 11:31 | XMS REPORT ---
Author Author [facility] Medic al StaffDASHA Organization [facility] Address [address] [id number] Phone [phone] Care Team Providers Care Plc Controls Engineer Name Role Phone KASIA ANDERSON APRN PP [phone] Summary purpose TRANSITION OF CARE AUTO GENERATION [...] 25-72 IU/L Albumin/Globulin Ratio 1.4 0-8 Hematology [id number]:37:00 Result Normal Range Units WBC 6.7 4.8-10.8 103/uL RBC 4.5 4.2-5.4 106/uL HGB 13.4 12.0-16.0 g/dl HCT 40.3 36.9-47.0 % MCV 90.0 81-99 FL MCH 29.9 27-31 pg MCHC 33.3 33-37 g/dl RDW 13.6 11.5-15.5 % PLT 269 130-400 103/uL MPV H 12.5 7.3-10.4 FL History of procedures No procedures recorded for this patient visit. Functional status No functional or cognitive status [...]
--- OUTSIDE RECORDS SUMMARY | 2020-01-14 11:31 | XMS REPORT ---
Author Author Su ALVARENGA Organization [facility] Address [address], [place] [address] Care Team Providers Care Is Project Manager Name Role Phone SHAWN ALVARENGA Unavailable PROBLEMS Type Condition ICD9-CM Code OWC23-MK Code Onset Dates Condition S tatus SNOMED Code Problem Atherosclerosis of renal artery I70.1 Jul, Active 59486360 Problem Essential (primary) hypertension I10 Jul, Active 68995345 Problem Proteinuria, unspecified R80.9 Jul, Ac tive 41861328 Problem Calculus of kidney N20.0 Jul, Active 94940889 Problem Rheumatoid arthritis, unspecified M06.9 Jul Active 35606531 ALLERGIES No Information ENCOUNTERS Encounter Location Date Diagnosis [facility] [address] [facility] [place] [address] Sep, [facility] [address] [facility] [address] [place] [facility] [address] Sep, Essential (primary) hypertension I10 ; H ypokalemia E87.6 and Nephrolithiasis N20.0 [facility] [place] [address] [facility] [place] [address] Sep, [facility] [place] [address] [facility] [place] [address] Aug, Essential (primary) hypertension I10 ; C alculus of kidney N20.0 and Hypokalemia E87.6 [facility] [place] [address] [facility] [place] [address] 08 Jun, 2019 [facility] [place] [address] [facility] [place] [address] Apr, [facility] [address] [place] [address] Apr, [facility] [address] [place] [address] Sep, [facility] [address] [place] [address] Sep, [facility] [address] [place] [address] Sep, [facility] [address] [place] [address] Aug, [facility] [address] [place] [address] Dec, [facility] [address] [place] [address] Jun, [facility] [address] [place], [place] [address] January, [facility] [address] [facility] [place] [address] Jul, Essential (primary) hypertension I10 [facility] [address] [place], [place] [address] Jun, [facility] [address] [place], [place] [address] Dec, [facility] [address] [facility] [address] [place], [place] [address] Jun, [facility] [address] [facility] [place] [address] Jul, Proteinuria, unspecified R80.9 ; Atheros clerosis of renal artery I70.1 ; Rheumatoid arthritis, unspecified M06.9 and Calculus of kidney N20.0 [facility] [address] [place] [address] Feb, [facility] [address] [facility] [place] [address] Apr, [facility] [address] [place] [address] January, [facility] [address] [place] [address] Jul, [facility] [address] [place] [address] May, [facility] [address] [place] [address] Feb, [facility] [address] [place] [address] Dec, IMMUNIZATIONS No Known Immunizations SOCIAL HISTORY Never Assessed REASON FOR VISIT Potassium Chloride refill PLAN OF CARE VITAL SIGNS MEDICATIONS Medication Instructions Dosage Frequency Start Date End Date Duration S tatus Potassium Chloride [facility] 20 MEQ Oral BID 1 (one) 12h 30 days Active RESULTS No Results PROCEDURES No Known procedures INSTRUCTIONS MEDICATIONS ADMINISTERED No Known Medications MEDICAL (GENERAL) HISTORY Type Description Date Medical History Benign essential hypertension Medical History Renal artery stenosis Medical History Fibromuscular hyperplasia Medical History Edema Medical History Nephrolithiasis Medical History Microscopic hematuria Medical History Hypokalemia Medical History Rheumatoid arthritis Medical History Depression Medical History Anxiety Medical History E-coli, 03/2018 Surgical History Percutaneous transluminal an gioplasty of right renal artery, 08/2011 Surgical History Tonsillectomy Surgical History Cholecystectomy Surgical History Hysterectomy Surgical History Back surgery Surgical History Cardiac catheterization Surgical History Breast biopsy, biateral, in 1990s
--- OUTSIDE RECORDS SUMMARY | 2020-01-14 11:31 | XMS REPORT ---
Author Author Su CORRAL Organization [facility] Address [address] [place] [id number] Care Team Providers Care Container Finishing Inspector Name Role Phone SHERITA CORRAL PCP Unavailable [...] HC BMI BSA BMI Percentile O2 Sat(%) 11/12/2015 2:33:00 PM 125 mmHg 72 mmHg [...] Reviewed 04/19/2014 12:00 AM Toradol 60 Mg NDC#1021-2656-14 Reviewed 04/19/2014 12:00 AM Phenergan, Up to 50 Mg ND#5962-8579-50 Reviewed 04/16/2014 12:00 AM THER/PROPH/DIAG INJ SC/IM Reviewed 04/16/2014 12:00 AM Toradol 60 Mg NDC#8736-6223-73 Reviewed 04/16/2014 12:00 AM Phenergan, Up to 50 Mg [facility]#6114-0649-46 Reviewed 09/10/2014 3:29 PM URINALYSIS AUTO W/O [...] Acute Post-nasal drainage Nov 12 2015 2:33PM Payers Insurance Name Company Name Plan Name Plan Number Policy Number [employer] Group Number Start Date [id number] N/ A [facility] [id number] N/A [employer] [id number] N/A History of Encounters Visit Date Visit Type Provider 11/12/2015 Office visit SHERITA SIMONS 09/27/2015 Office visit SHERITA SIMONS 06/11/2015 Office visit SHERITA SIMONS 09/10/2014 Office visit SHERITA SIMONS 04/19/2014 Office visit SHERITA SIMONS 04/16/2014 Office visit SHERITA SIMONS
--- OUTSIDE RECORDS SUMMARY | 2020-01-14 11:31 | XMS REPORT ---
Author Author [facility] Staff, DASHA Organization [facility] Address [address] [place] [id number] Phone [phone] Care Team Providers Care Paintings Restorer Name Role Phone MONICA AMAYANDANNIELLEKASIA PP [phone] Summary purpose TRANSITION OF CARE AUTO GENERATION Chief Complaint and Reason for Visit Admit Diagnosis 1 RHEUMATOID ARTHRITIS Problem list No authorized problems tracked for continuity of care are available for this vis it. Encounters No authorized problems tracked for encounter diagnoses are available for this vi sit. Medications No home medications recorded for this patient visit Allergies, adverse reactions, alerts No allergy information is available for this patient. Immunizations No immunizations recorded for this patient visit Relevant diagnostic tests and/or laboratory data RESULTS Hematology [id number]:00 Result Normal Range Units WBC 7.1 4.8-10.8 103/uL RBC 4.6 4.2-5.4 106/uL HGB 14.1 12.0-16.0 g/dl HCT 42.2 36.9-47.0 % MCV 91.1 81-99 FL MCH 30.5 27-31 pg MCHC 33.4 33-37 g/dl RDW 14.3 11.5-15.5 % PLT 257 130-400 103/uL MPV H 12.2 7.3-10.4 FL History of procedures Procedure Code Code Type Description Date Performed Performing Physician 71309 CPT-4 COMPLETE CBC, AUTOMATED 06-27-2014 LANA ANDERSON Functional status No functional or cognitive [...]
--- OUTSIDE RECORDS SUMMARY | 2020-01-14 11:31 | XMS REPORT ---
Author Author Su ALVARENGA Organization [facility] Address [address] [place], [place] [address] Care Team Providers Care Automotive Window Tinter Name Role Phone SHAWN ALVARENGA Unavailable PROBLEMS Type Condition ICD9-CM Code UKL05-TD Code Onset Dates Condition S tatus SNOMED Code Problem Atherosclerosis of renal artery I70.1 Jul, Active 43616172 Problem Essential (primary) hypertension I10 Jul, Active 60371665 Problem HTN, essential-Unspe 401.9 Dec, Inacti ve 14245499 Problem Proteinuria, unspecified R80.9 Jul, Ac tive 62920770 Problem Calculus of kidney N20.0 Jul, Active 90359462 Problem Rheumatoid arthritis, unspecified M06.9 Jul Active 23973605 ALLERGIES No Information ENCOUNTERS Encounter Location Date Diagnosis [facility] [address] [address] [facility] [place] [address] Sep, [facility] [address] [facility] [place] [address] Sep, [facility] [address] [facility] [place] [address] Aug, Essential (primary) hypertension I10 ; C alculus of kidney N20.0 and Hypokalemia E87.6 [facility] [place] [address] [facility] [place] [address] Jun, [facility] [place] [address] [facility] [place] [address] Apr, [facility] [place] [address] [facility] [place] [address] Apr, [facility] [address] [place] [address] Sep, [facility] [address] [place] [address] Sep, [facility] [address] [place] [address] Sep, [facility] [address] [place] [address] Aug, [facility] [address] [place] [address] Dec, [facility] [address] [place] [address] Jun, [facility] [address] [place] [address] January, [facility] [address] [facility] [place] [address] Jul, Essential (primary) hypertension I10 [facility] [address] [place] [address] Jun, [facility] [address] [place] [address] Dec, [facility] [address] [place] [address] Jun, [facility] [address] [facility] [place] [address] Jul, Proteinuria, unspecified R80.9 ; Atheros clerosis of renal artery I70.1 ; Rheumatoid arthritis, unspecified M06.9 and Calculus of kidney N20.0 [facility] [address] [facility] [place] [address] Feb, [facility] [address] [facility] [place] [address] Apr, [facility] [address] [facility] [place] [address] January, [facility] [address] [facility] [address] [place] [address] Jul, [facility] [place] [address] [facility] [address] [place] [address] May, [facility] [address] [facility] [address] [place] [address] Feb, [facility] [place] [address] [facility] [address] [place] [address] Dec, IMMUNIZATIONS No Known Immunizations SOCIAL HISTORY Never Assessed REASON FOR VISIT Update Demographics - Additional Info PLAN OF CARE VITAL SIGNS MEDICATIONS Unknown Medications RESULTS No Results PROCEDURES No Known procedures INSTRUCTIONS MEDICATIONS ADMINISTERED No Known Medications MEDICAL (GENERAL) HISTORY Type Description Date Medical History RENAL ARTERY STENOSIS-History of renal a rtery stenosis Medical History ANXIETY DISORDER NOS-History of anxiety disorder NOS Medical History date of last menstruation-Date of last m enstruation 1993 Medical History EDEMA-Edema Medical History past medical/surgical histor y [use for free text]-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 REMEMBER Medical History past medical/surgical histor y [use for free text]-Last Breat Exam JUNE 2007~ Medical History History of microscopic hematuria Medical History comprehensive medical evalua tion-Previous history of visit for: comprehensive medical evaluation 3 MONTHS AGO Medical History no additions since (date)-[place] medical history reviewed with no additions Medical History past medical/surgical histor y [use for free text]-Last Pap Smear 2004 OR 2005~ Medical History HYPERTENSION-History of hypertension Medical History DEPRESSION-History of depression Medical History HYPOKALEMIA-Hypokalemia Medical History BENIGN-History of benign essential hyper tension Medical History RHEUMATOID-History of rheumatoid arthrit is Medical History ESCHERICHIA COLI (E. COLI) I NFECTION-History of Escherichia coli (E. coli) infection , 03/2018; Medical History Influenza Virus Vaccine-influenza virus vaccine 06/2011 Medical History HYPERTENSION-history of hypertension Medical History KIDNEY DISEASE-History of hypertensive k idney disease Medical History NEPHROLITHIASIS-History of nephrolithias is Medical History NEPHROLITHIASIS-history of nephrolithias is Medical History Influenza Virus Vaccine-Influenza virus vaccine 06/2011 Medical History Renal-Percutaneous renal ang ioplasty of right renal artery, August 2011 Medical History History of fibromuscular arterial hyperp lasia Medical History surgical history reviewed-Surgical histo ry reviewed Medical History Renal-percutaneous renal ang ioplasty of right renal artery, August 2011 Medical History RHEUMATOID-history of rheumatoid arthrit is Medical History Renal-Percutaneous translumi nal angioplasty of renal artery on right, August 2011 Medical History Complete Colonoscopy-No history of compl ete colonoscopy Medical History RENAL ARTERY STENOSIS-Renal artery steno sis Medical History Complete Colonoscopy-no history of compl ete colonoscopy Medical History RENAL ARTERY STENOSIS-renal artery steno sis Medical History history of renal dysplasia (fibromuscul ar dysplasia) Medical History BENIGN-history of benign essential hyper tension Medical History HYPOKALEMIA-hypokalemia Medical History no additions since (date)-[place] medical history reviewed with no additions Medical History surgical history reviewed-surgical histo ry reviewed Medical History EDEMA-edema Medical History for flu-a recent immunization for flu Medical History for pneumococcal pneumonia-a recent immunization for pneumococcal pneumonia Medical History for flu-A recent immunization for flu Medical History for pneumococcal pneumonia-n o recent immunization for pneumococcal pneumonia Medical History for flu-a recent immunization for flu 2 015 Medical History KIDNEY DISEASE-history of hypertensive k idney disease Medical History Renal-percutaneous translumi nal angioplasty of renal artery of right renal artery, August 2011 Medical History history of microscopic hematuria Medical History Influenza Virus Vaccine-hist ory of influenza virus vaccine 2014 Medical History Renal-percutaneous translumi nal angioplasty of renal artery on right, August 2011 Medical History history of fibromuscular arterial hyperp lasia Medical History DEPRESSION-history of depression Medical History ESCHERICHIA COLI (E. COLI) I NFECTION-history of Escherichia coli (E. coli) infection , 03/2018; Medical History ANXIETY DISORDER NOS-history of anxiety disorder NOS Medical History RENAL ARTERY STENOSIS-history of renal a rtery stenosis Surgical History Back Surgery-History of back surgery [...]
--- OUTSIDE RECORDS SUMMARY | 2020-01-14 11:31 | XMS REPORT ---
Author Author Su CORRAL Organization [facility] Address [address] [place] [address] Care Team Providers Care Track And Field Coach Name Role Phone SHERITA CORRAL PCP Unavailable [...] tablet by oral route Q6H PRN pain Name Start Date Expiration Date SIG Comments [...] 04/23/2016 12:00 AM Decadron, Per 1 Mg [facility]# [address]-07 Re viewed 04/23/2016 12:00 AM Toradol 60 Mg [facility]#3387-2927-93 Reviewed 05/04/2016 12:00 AM MRI LUMBAR SPINE W/O DYE Returned 04/16/2014 12:00 AM URINE BACTERIA CULTURE Reviewed 04/16/2014 12:[address] ABD & PELVIS W/O CONTRAST Reviewed 04/16/2014 11:09 AM URINALYSIS AUTO W/O SCOPE Reviewed 04/19/2014 12:00 AM THER/PROPH/DIAG INJ SC/IM Reviewed 04/19/2014 12:00 AM Toradol 60 Mg ND#8132-9712-65 Reviewed 04/19/2014 12:00 AM Phenergan, Up to 50 Mg [facility]#1893-6212-56 Reviewed 04/16/2014 12:00 AM THER/PROPH/DIAG INJ SC/IM Reviewed 04/16/2014 12:00 AM Toradol 60 Mg ND#9177-6404-29 Reviewed 04/16/2014 12:00 AM Phenergan, Up to 50 Mg [facility]#8079-1929-13 Reviewed 09/10/2014 3:29 PM URINALYSIS AUTO W/O SCOPE Reviewed 09/10/2014 12:00 AM URINALYSIS AUTO W/O SCOPE Reviewed 09/10/2014 12:00 AM URINE BACTERIA CULTURE Reviewed Results Summary Data and Description Results 04/16/2014 [...] [employer] Group Number Start Date [facility]BS [facility] [id number] N/ A [facility] [id number] N/A [employer] [id number] N/A History of Encounters Visit Date Visit Type Provider 04/29/2016 Office visit SHERITA SIMONS 04/23/2016 Office visit SHERITA CORRAL PA 11/12/2015 Office visit SHERITA CORRLA PA 09/27/2015 Office visit SHERITA CORRAL PA 06/11/2015 Office visit SHERITA CORRAL PA 09/10/2014 Office visit SHERITA CORRAL PA 04/19/2014 Office visit SHERITA CORRAL PA 04/16/2014 Office visit SHERITA CORRAL PA
--- OUTSIDE RECORDS SUMMARY | 2020-01-14 11:31 | XMS REPORT ---
Author Author Su CORRAL Organization [facility] Address [address] [place], [place] [address] Care Team Providers Care Fine Jewelry Sales Associate Name Role Phone SHERITA CORRLA PCP Unavailable Allergies and Adverse Reactions Name [...] HC BMI BSA BMI Percentile O2 Sat(%) 06/11/2015 3:19:00 PM 115 mmHg 68 mmHg [...] Reviewed 04/19/2014 12:00 AM Toradol 60 Mg [facility]#8095-2990-47 Reviewed 04/19/2014 12:00 AM Phenergan, Up to 50 Mg ND#9841-5532-00 Reviewed 04/16/2014 12:00 AM THER/PROPH/DIAG INJ SC/IM Reviewed 04/16/2014 12:00 AM Toradol 60 Mg NDC#4577-6618-93 Reviewed 04/16/2014 12:00 AM Phenergan, Up to 50 Mg [facility]#5275-4084-66 Reviewed 09/10/2014 3:29 PM URINALYSIS AUTO W/O [...] 3:20PM Tinea cruris Jun 11 2015 3:20PM Payers Insurance Name Company Name Plan Name Plan Number Policy Number [employer] Group Number Start Date [facility] [id number] N/A History of Encounters Visit Date Visit Type Provider 06/11/2015 Office visit SHERITA SIMONS 09/10/2014 Office visit SHERITA SIMONS 04/19/2014 Office visit SHERITA SIMONS 04/16/2014 Office visit SHERITA SIMONS
--- OUTSIDE RECORDS SUMMARY | 2020-01-14 11:31 | XMS REPORT ---
Author Author [facility] Medic al StaffDASHA Organization [facility] Address [address] [id number] Phone [phone] Care Team Providers Care Orthotics Technician Name Role Phone KASIA ANDERSON APRN, PP [phone] KASIA ANDERSON APRN, PP [phone] Summary purpose TRANSITION OF CARE AUTO GENERATION [...] visit Relevant diagnostic tests and/or laboratory data No authorized results are available for this patient visit History of procedures No procedures recorded for [...]
--- OUTSIDE RECORDS SUMMARY | 2020-01-14 11:31 | XMS REPORT | Clinical Summary ---
Author Author Admin, Su Kirk [facility] Address Unknown Phone Unavailable Allergies, Adverse Reactions, Alerts Allergy Name Reaction Description Start Date Severity Status Pr ovider HUMIRA PEN Moderate Active Pauly Pool PA VICODIN Moderate Active Arpita Kimball RN Conditions or Problems Problem Name Problem Code Onset Date Status Entry Date Provider Comment Standard Description Annotate HYPERTENSION 401.9 Active Arpita Kimball RN Unspecified essential hypertension GASTROENTERITIS, ACUTE 558.9 Resolved Pauly Pool PA Other and unspecified noninfectious gastroenteritis and colitis ABDOMINAL PAIN 789.00 Resolved Pauly Pool PA Abdominal pain, unspecified site RHEUMATOID ARTHRITIS 714.0 Active Pauly Pool PA Rheumatoid arthritis HYPOKALEMIA 276.8 Active Pauly Pool PA H ypopotassemia PERIPHERAL EDEMA 782.3 Active Pauly Pool PA Edema ARTHRITIS, RHEUMATOID 714.0 Active Arpita lee RN Rheumatoid arthritis ABSCESS, TOOTH 522.5 Resolved Pauly Pool PA Periapical abscess without sinus DENTAL CARIES 521.00 Resolved Pauly Pool PA Dental caries, unspecified HYPERLIPIDEMIA, MIXED 272.2 Active Pauly Pool PA Mixed hyperlipidemia HYPERLIPIDEMIA 272.4 Resolved Pauly Pool PA Other and unspecified hyperlipidemia HERPES ZOSTER 053.9 Active Oseas SIMONS Herpes zoster without mention of complication ADVERSE DRUG REACTION 995.20 Resolved Pauly Pool P A Unspecified adverse effect of unspecified drug, medicinal and biological substance URINARY TRACT INFECTION, ACUTE 599.0 Active Pauly SIMONS Urinary tract infection, site not specified ABSCESS 682.9 Active Pauly Bozeman PA Cellu litis and abscess of unspecified sites GASTROENTERITIS, ACUTE ICD-558.9 Inactive Pauly Pool PA ABDOMINAL PAIN ICD-789.00 Inactive Pauly Pool P A ABSCESS, TOOTH ICD-522.5 Inactive Pauly Pool PA DENTAL CARIES ICD-521.00 Inactive Pauly Pool PA HYPERLIPIDEMIA ICD-272.4 Inactive Pauly Pool PA 02/02 ADVERSE DRUG REACTION ICD-995.20 Inactive Pauly Pool PA Medication List Medication Instructions Start Date Stop Date Generic Name NDC Status Provider Patient Instruction BACTROBAN 2 % OINT apply to area bid x 7 days M UPIROCIN 79066198257 [facility] Active BACTRIM DS 800-160 MG TABS take one tab po bid x 7 days SULFAMETHOXAZOLE-TRIMETHOPRIM 94973147003 No Longer Active Pauly SIMONS Active ENBREL SURECLICK 50 MG/ML SOLN inject 1 mL weekly ETANERCEPT 21915302335 [facility] Active HUMIRA 40 MG/0.8ML KIT 40mg every other week AD ALIMUMAB 58022258703 No Longer Active Pauly SIMONS Active ACYCLOVIR 800 MG TABS 1 po 5 times a day ACYCLOVI R 20927804567 Active Oseas SIMONS Active PREDNISONE (DANIEL) 10 MG TABS 1/2 TAB PER DAY PRE DNISONE 17870942899 No Longer Active Oseas SIMONS Active AMOXICILLIN 500 MG TABS take one tab po tid x 10 days AMOXICILLIN 86639286443 No Longer Active Oseas SIMONS Active AMITRIPTYLINE HCL 50 MG TAB Take 2 every evening AMITRIPTYLINE HCL 00575671999 Active Ene Goldstein MD PhD Active LOVASTATIN 20 MG TABS take one tab po daily LOVAS TATIN 52973054480 Active Kathrin Singh RN Active AMOXICILLIN 500 MG TABS take 1 tab po tid x 7 days 201 10/28/07 AMOXICILLIN 38894878546 No Longer Active Pauly Pool PA Active VIMOVO 375-20 MG TBEC one tab bid NAPROXEN-ESOM EPRAZOLE 41817854465 Active Pauly Pool PA Active ZITHROMAX Z-DANIEL 250 MG TABS take as directed [place] ITHROMYCIN 00693159964 No Longer Active Pauly Pool PA Active OMEPRAZOLE 40 MG CPDR ONE P.OL. QD OMEPRAZOLE 1239428 5901 Active Arpita Lock RN Active PROMETHAZINE HCL 25 MG TABS ONE P.O. AT START OF NAUSEA PROMETHAZINE HCL 95295019623 Active Arpita Lock RN Active ZIAC 10-6.25 MG TABS ONE P.O. QD BISOPROLOL-HYD ROCHLOROTHIAZIDE 25543755741 Active Arpita Lock RN Active ZITHROMAX Z-DANIEL 250 MG TABS take as directed 0 ZITHROMAX Z- DANIEL 250 MG TABS 4184430 AZITHROMYCIN Inactive AMOXICILLIN 500 MG TABS take 1 tab po tid x 7 days 201 10/28/07 AMOXICILLIN 500 MG TABS 523700 AMOXICILLIN Inactive AMOXICILLIN 500 MG TABS take one tab po tid x 10 days AMOXICILLIN 500 MG TABS 422014 AMOXICILLIN Inactive PREDNISONE (DANIEL) 10 MG TABS 1/2 TAB PER DAY PREDNISONE (DANIEL) 10 MG TABS PREDNISONE Inactive HUMIRA 40 MG/0.8ML KIT 40mg every other week 3 HUMIRA 40 MG/0.8ML KIT ADALIMUMAB Inactive BACTRIM DS 800-160 MG TABS take one tab po bid x 7 days BACTRIM DS 800-160 MG TABS SULFAMETHOXAZOLE-TRIMETHOPRIM [place] ct[facility] Advance Directives Directive Description Start Date PERMISSION TO SHARE Immunizations Vaccine Administration Date Value Standard Favian cription TB-PPD (tuberculin purified protein derivative), intra dermal administration Tubersol Encounters Code Encounter Date Provider Facility CPT-24361 Level 3 Est. Patient 08:32:[address] [facility] CPT-03021 Level 3 Est. Patient 16:24:48 CDT Pauly [facility] CPT-20039 Level 3 Est. [facility] 3 Est. Patient 14:28:56 POSTDOCTORAL FELLOW Oseas parr [facility] CPT-45579 Level 3 Est. Patient 08:44:[address] [facility] CPT-37978 Level 3 Est. [facility]:36[facility] Level 3 Est. Patient 11:52:12 CDT [facility] CPT-66360 Level 3 Est. Patient 14:22:42 CDT [facility] Procedures Code Procedure Name Date Entry Date Standard Desc ription CPT-80368 Venipuncture Draw Fee 11:23:53 CDT CPT-50281 Venipuncture Draw Fee 14:06:31 CDT CPT-98330 Urine Dip (Floor Use Only) 08:32:26 CDT 201 11/24/30 CPT-34869 Urine Dip (Floor Use Only) 16:24:48 CDT 201 11/24/22 CPT-38257 Venipuncture Draw Fee 11:23:06 CDT CPT-000 Give PPD 19:17:04 CDT CPT-63146 Abx/Therapy Injection 19:17:04 CDT CPT-77975 Venipuncture Draw Fee 11:52:12 T
--- OUTSIDE RECORDS SUMMARY | 2020-01-14 11:31 | XMS REPORT ---
Author Author [email or web address] al DASHA Moreno Organization [email or web address] Address [address] [id number] Phone [phone] Care Team Providers Care Inside Sales Lead Name Role Phone KASIA MEDINA APRN, PP [phone] KASIA MEDINA APRN, PP [phone] Summary purpose TRANSITION OF CARE AUTO GENERATION [...] Relevant diagnostic tests and/or laboratory data RESULTS Radiology Results [id number] Bilateral Screen Digital Mammo PACs Image DATE OF EXAM: 2014 [facility] 0845-BILAT SCREEN DIG MA MMO : RADIOLOGY REPORT DATE OF SERVICE: 2015 HISTORY: Screening for possible malignan t neoplasm BILATERAL SCREENING DIGITAL MAMMOGRAPHY WITH iCAD SecondLook 7.2-H+ 1230 HOURS Breast parenchyma is heterogenously dens e. No mass, grouped calculi or architectural distortion are seen. IMPRESSION: Negative BI-RADS category I study. Similar to study of 07/28/12. Rakan Newell DO MW/cdj1 18:50:00 / 06/20 19:32:45 cc:Kasia Medina APRN This document has been electronically Signed by: On: DATE OF EXAM: 2014 [facility] 0845-BILAT SCREEN DIG MA MMO : RADIOLOGY REPORT DATE OF SERVICE: 2015 HISTORY: Screening for possible malignan t neoplasm BILATERAL SCREENING DIGITAL MAMMOGRAPHY WITH iCAD SecondLook 7.2-H+ 1230 HOURS Breast parenchyma is heterogenously dens e. No mass, grouped calculi or architectural distortion are seen. IMPRESSION: Negative BI-RADS category I study. Similar to study of 07/28/12. Rakan Newell DO MW/cdj1 18:50:00 06/20 19:32:45 cc:Kasia Medina APRN This document has been electronically Signed by: RAKAN NEWELL DO On: Jul 03 20152:58P Result Amended on 2015-07-03 at 14:58:54 . Previous status was HI. History of procedures No procedures recorded for [...]
--- OUTSIDE RECORDS SUMMARY | 2020-01-14 11:31 | XMS REPORT | Clinical Summary ---
Author Author Kevon, Su Kirk Address Unknown Phone Unavailable Allergies, Adverse Reactions, [...] URINARY TRACT INFECTION, ACUTE 599.0 Active Pauly Mabry PA Urinary tract infection, site not specified ABSCESS 682.9 Active Pauly Rutland PA Cellu litis and abscess of unspecified [...] area bid x 7 days M UPIROCIN 21813208272 Active [facility] RONAK Active BACTRIM DS 800-160 MG TABS take one tab po bid x 7 days SULFAMETHOXAZOLE-TRIMETHOPRIM 28524407011 No Longer Active Pauly [place] RONAK Active ENBREL SURECLICK 50 MG/ML SOLN inject 1 mL weekly ETANERCEPT 06939427858 Active [facility] RONAK Active HUMIRA 40 MG/0.8ML KIT 40mg every other week AD ALIMUMAB 27754483679 No Longer Active Pauly SIMONS Active ACYCLOVIR 800 MG TABS 1 po 5 times a day ACYCLOVI R 36719240336 Active [place] SIMONS Active PREDNISONE (DANIEL) 10 MG TABS 1/2 TAB PER DAY PRE DNISONE 89735240905 No Longer Active [place] SIMONS Active AMOXICILLIN 500 MG TABS take one tab po tid x 10 days AMOXICILLIN 96156590885 No Longer Active [place] Michael PA Active AMITRIPTYLINE HCL 50 MG TAB Take 2 every evening AMITRIPTYLINE HCL 63707421384 Active Ene Goldstein MD PhD Active LOVASTATIN 20 MG TABS take one tab po daily LOVAS TATIN 94055097757 Active Kathrin Singh RN Active AMOXICILLIN 500 MG TABS take 1 tab po tid x 7 days 201 10/28/07 AMOXICILLIN 51536729330 No Longer Active Pauly Pool PA Active VIMOVO 375-20 MG TBEC one tab bid NAPROXEN-ESOM EPRAZOLE 81163541955 Active Pauly Pool PA Active ZITHROMAX Z-DANIEL 250 MG TABS take as directed [place] ITHROMYCIN 70503014971 No Longer Active Pauly Pool PA Active OMEPRAZOLE 40 MG CPDR ONE P.OL. QD OMEPRAZOLE 6067181 5901 Active Arpita Lock RN Active PROMETHAZINE HCL 25 MG TABS ONE P.O. AT START OF NAUSEA PROMETHAZINE HCL 29172379195 Active Arpita Lock RN Active ZIAC 10-6.25 MG TABS ONE P.O. QD BISOPROLOL-HYD ROCHLOROTHIAZIDE 08301172890 Active Arpita Lock RN Active ZITHROMAX Z-DANIEL 250 MG TABS take as directed 0 ZITHROMAX Z- DANIEL 250 MG TABS 1284206 AZITHROMYCIN Inactive AMOXICILLIN 500 MG TABS take 1 tab po tid x 7 days 201 10/28/07 AMOXICILLIN 500 MG TABS 298074 AMOXICILLIN Inactive AMOXICILLIN 500 MG TABS take one tab po tid x 10 days AMOXICILLIN 500 MG TABS 410901 AMOXICILLIN Inactive PREDNISONE (DANIEL) 10 MG TABS 1/2 TAB PER DAY PREDNISONE (DANIEL) 10 MG TABS PREDNISONE Inactive HUMIRA 40 MG/0.8ML KIT 40mg every other week 3 HUMIRA 40 MG/0.8ML KIT ADALIMUMAB Inactive BACTRIM DS 800-160 MG TABS take one tab po bid x 7 days BACTRIM DS 800-160 MG TABS SULFAMETHOXAZOLE-TRIMETHOPRIM Shana ctive Advance Directives Directive Description Start Date PERMISSION TO SHARE Immunizations Vaccine Administration Date Value Standard Favian cription TB-PPD (tuberculin purified protein derivative), intra dermal administration Tubersol Encounters Code Encounter Date Provider Facility CPT-15860 Level 3 Est. [facility] Level 3 Est. Patient 16:24:48 CDT P[facility] CPT-84860 Level 3 Est. [facility] Level 3 Est. Patient 14:28:56 MEDICAL PAYMENT POSTER [facility] CPT-78554 Level 3 Est. [facility] 08:44[facility] Level 3 Est. [facility] 11:36[facility] Level 3 Est. Patient 11:52:12 CDT [facility] CPT-45944 Level 3 Est. Patient 14:22:42 CDT [facility] Procedures Code Procedure Name Date Entry Date Standard Desc ription CPT-39761 Venipuncture Draw Fee 11:23:53 CDT CPT-08120 Venipuncture Draw Fee 14:06:31 CDT CPT-61182 Urine Dip (Floor Use Only) 08:32:26 CDT 201 11/24/30 CPT-71279 Urine Dip (Floor Use Only) 16:24:48 CDT 201 11/24/22 CPT-84088 Venipuncture Draw Fee 11:23:06 CDT CPT-000 Give PPD 19:17:04 CDT CPT-83644 Abx/Therapy Injection 19:17:04 CDT CPT-27569 Venipuncture Draw Fee 11:52:12 T
--- OUTSIDE RECORDS SUMMARY | 2020-01-14 11:32 | XMS REPORT | Clinical Summary ---
Author Author Kevon, Su Hardwick Organization [facility] Address Unknown Phone Allergies, Adverse Reactions, Alerts Allergy Name Reaction [...] site not specified ABSCESS 682.9 Active Pauly Pool PA Cellu litis and abscess of unspecified [...] area bid x 7 days M UPIROCIN 85491360139 Active Pauly SIMONS Active BACTRIM DS 800-160 MG TABS take one tab po bid x 7 days SULFAMETHOXAZOLE-TRIMETHOPRIM 79516089893 No Longer Active Pauly SIMONS Active ENBREL SURECLICK 50 MG/ML SOLN inject 1 mL weekly ETANERCEPT 16831110926 Active Pauly SIMONS Active HUMIRA 40 MG/0.8ML KIT 40mg every other week AD ALIMUMAB 65200291345 No Longer Active Pauly SIMONS Active ACYCLOVIR 800 MG TABS 1 po 5 times a day ACYCLOVI R 68258658746 Active [place] SIMONS Active PREDNISONE (DANIEL) 10 MG TABS 1/2 TAB PER DAY PRE DNISONE 11786714998 No Longer Active [place] SIMONS Active AMOXICILLIN 500 MG TABS take one tab po tid x 10 days AMOXICILLIN 50752417432 No Longer Active [place] Michael PA Active AMITRIPTYLINE HCL 50 MG TAB Take 2 every evening AMITRIPTYLINE HCL 55992112947 Active Ene Goldstein MD PhD Active LOVASTATIN 20 MG TABS take one tab po daily LOVAS TATIN 63626229198 Active Kathrin Singh RN Active AMOXICILLIN 500 MG TABS take 1 tab po tid x 7 days 201 10/28/07 AMOXICILLIN 06749414821 No Longer Active Pauly Pool PA Active VIMOVO 375-20 MG TBEC one tab bid NAPROXEN-ESOM EPRAZOLE 16913181742 Active Pauly Pool PA Active ZITHROMAX Z-DANIEL 250 MG TABS take as directed AZ ITHROMYCIN 41152637789 No Longer Active Pauly Mabry PA Active OMEPRAZOLE 40 MG CPDR ONE P.OL. QD OMEPRAZOLE 1960396 5901 Active Arpita Lock RN Active PROMETHAZINE HCL 25 MG TABS ONE P.O. AT START OF NAUSEA PROMETHAZINE HCL 90869430344 Active Arpita Lock RN Active ZIAC 10-6.25 MG TABS ONE P.O. QD BISOPROLOL-HYD ROCHLOROTHIAZIDE 93081946155 Active Arpita Lock RN Active BACTRIM DS 800-160 MG TABS take one tab po bid x 7 days BACTRIM DS 800-160 MG TABS SULFAMETHOXAZOLE-TRIMETHOPRIM [facility] ct[facility] PREDNISONE (DANIEL) 10 MG TABS 1/2 TAB PER DAY PREDNISONE (DANIEL) 10 MG TABS PREDNISONE Inactive AMOXICILLIN 500 MG TABS take 1 tab po tid x 7 days 201 10/28/07 AMOXICILLIN 500 MG TABS 946256 AMOXICILLIN Inactive AMOXICILLIN 500 MG TABS take one tab po tid x 10 days AMOXICILLIN 500 MG TABS 795625 AMOXICILLIN Inactive ZITHROMAX Z-DANIEL 250 MG TABS take as directed 0 ZITHROMAX Z- DANIEL 250 MG TABS 6400275 AZITHROMYCIN Inactive HUMIRA 40 MG/0.8ML KIT 40mg every other week 3 HUMIRA 40 MG/0.8ML KIT ADALIMUMAB Inactive Advance Directives Directive Description Start Date PERMISSION TO SHARE Immunizations Vaccine Administration Date Value Standard Favian cription TB PPD (tuberculin purified protein derivative), intra dermal administration Tubersol Vital Signs Date Name Value Unit Range Description blood pressure, diastolic 82 mm[Hg] BP sosa blood pressure, systolic 120 mm[Hg] BP sys height E&M 64 [in_us] Bdy height pulse rate E&M 70 /min Heart rate temperature E&M 98.7 [degF] Body temp erature weight E&M 218 [lb_av] Weight Measure d blood pressure, diastolic 92 mm[Hg] BP sosa blood pressure, systolic 146 mm[Hg] BP sys height E&M 64 [in_us] Bdy height pulse rate E&M 81 /min Heart rate temperature E&M 99.3 [degF] Body temp erature weight E&M 219 [lb_av] Weight Measure d Diagnostic Results Date Name Value Unit Range Description Lab Report: CBC - Hematology leukocyte count, blood 8.3 10^3/MM^3 10*3/mm3 4.6-10.2 erythrocyte (RBC) count 4.53 10^6/MM^3 10*6/mm3 4.04-5.4 8 hemoglobin, blood 14.2 g/dL 12.0-16.0 hematocrit, blood 42.9 % 36.0-46.0 mean corpuscular volume, RBC 95 fL 80-97 mean corpuscular hemoglobin, RBC 31.4 pg 27. 0-31.2 mean corpuscular hemoglobin concentration, RBC 33.2 G/DL % 31.8-35.4 red blood cell distribution width 13.1 % 11 .6-14.8 platelet count 203 10^3/MM^3 10*3/mm3 142-424 Lab Report: CBC, HEPATIC PANEL - [employer] alkaline phosphatase, serum 101 U/L 50-136 aspartate aminotransferase (SGOT), serum 34 U/L 15-37 alanine aminotransferase (SGPT), serum 35 U/L 12-78 bilirubin, serum, total 0.78 mg/dL 0.00-1.00 Lab Report: CBC, HEPATIC PANEL - Hematol ogy leukocyte count, blood 6.2 10^3/MM^3 10*3/mm3 4.6-10.2 erythrocyte (RBC) count 4.44 10^6/MM^3 10*6/mm3 4.04-5.4 8 hemoglobin, blood 14.0 g/dL 12.0-16.0 hematocrit, blood 41.9 % 36.0-46.0 mean corpuscular volume, RBC 94 fL 80-97 mean corpuscular hemoglobin, RBC 31.5 pg 27. 0-31.2 mean corpuscular hemoglobin concentration, RBC 33.4 G/DL % 31.8-35.4 red blood cell distribution width 13.8 % 11 .6-14.8 platelet count 288 10^3/MM^3 10*3/mm3 142-424 Lab Report: HEPATIC PANEL - Chemistry alkaline phosphatase, serum 114 U/L 50-136 aspartate aminotransferase (SGOT), serum 34 U/L 15-37 alanine aminotransferase (SGPT), serum 33 U/L 12-78 bilirubin, serum, total 0.79 mg/dL 0.00-1.00 Office Visit: infected belly button - Ch emistry protein, total urine random negative mg/dL RBC, urine, dipstick negative Office Visit: infected belly button - Ur inalysis ketones, urine, by test strip negative bilirubin, urine negative glucose, urine, semiquantitative negative urinalysis, routine Clean Catch urine color yellow appearance, urine clear leukocyte esterase, urine, by dipstick negative nitrite, urine, semiquantitative negative urobilinogen, urine, semiquantitative (dipstick) 0.2 protein, urine, semiquantitative (dipstick) negative pH, urine, semiquantitative 5 specific gravity, urine 1.010 Office Visit: poss UTI - Chemistry RBC, urine, dipstick 2+ protein, total urine random negative mg/dL Office Visit: poss UTI - Urinalysis pH, urine, semiquantitative 5 specific gravity, urine 1.020 urinalysis, routine Clean Catch ketones, urine, by test strip negative bilirubin, urine negative glucose, urine, semiquantitative negative urine color yellow appearance, urine clear leukocyte esterase, urine, by dipstick trace nitrite, urine, semiquantitative positive urobilinogen, urine, semiquantitative (dipstick) 0.2 protein, urine, semiquantitative (dipstick) negative Encounters Code Encounter Date Provider Facility CPT-61232 Level 3 Est. Patient 08:32:26 CDT P[facility]ly Mab[facility] CPT-13239 Level 3 Est. Patient 16:24:48 CDT Pauly Mabry [facility] CPT-25465 Level 3 Est. Patient 09:34:31 CDT Pauly Mabry [facility] CPT-28552 Level 3 Est. Patient 14:28:56 ALUMINUM POURER [facility]as parr [facility] CPT-34866 Level 3 Est. Patient 08:44:45 CDT Pauly Mab[facility] CPT-24621 Level 3 Est. Patient 11:36:37 CDT Pauly Mabry [facility] CPT-23460 Level 3 Est. Patient 11:52:12 CDT Pauly Mab[facility] CPT-93084 Level 3 Est. Patient 14:22:42 CDT [facility] Procedures Code Procedure Name Date Entry Date Standard Desc ription CPT-21858 Venipuncture Draw Fee 11:23:53 CDT CPT-39309 Venipuncture Draw Fee 14:06:31 CDT CPT-05783 Urine Dip (Floor Use Only) 08:32:26 CDT 201 11/24/30 CPT-91294 Urine Dip (Floor Use Only) 16:24:48 CDT 201 11/24/22 CPT-85915 Venipuncture Draw Fee 11:23:06 CDT CPT-000 Give PPD 19:17:04 CDT CPT-26517 Abx/Therapy Injection 19:17:04 CDT CPT-27686 Venipuncture Draw Fee 11:52:12 CDT
--- OUTSIDE RECORDS SUMMARY | 2020-01-14 11:32 | XMS REPORT | Continuity of Care Document ---
Demographics Preferred Language Unknown Marital Status Unknown Scientologist Affiliation Unknown Race Unknown Ethnic Group Unknown Author Organization Unknown Address Unknown Phone Unavailable Allergies There is no data. Medications Medication Packaging Start Date St op Date Route Dosage Sig bisoprolol fumarate 10 mg tablet Tablet 01/26/2014 10/23/2014 10 mg 1 (one) by Oral route daily for 90 days naproxen 500 mg tablet 07/13/2014 10/13/2018 500 mg 1 (one) Tablet by Oral route every morning hydrochlorothiazide 12.5 mg capsule Capsule 10/22/2015 10/22/2015 12.5 mg take 1 (one) Capsule by Oral route daily Enbrel 50 mg/mL (0.98 mL) subcutaneous syr cassy Milliliter 10/13/2018 50 mg/ mL (0.98 mL) take 1 (one) Milliliter(s) b y Subcutaneous route every week potassium chloride ER 20 mEq tablet,extended release(part/cryst) Tablet 10/13/2018 05/11/2019 20 mEq 1 (one) by Oral route daily for 30 days Problems Date Dx Coded Attending Type Code Diagnosis Diagnosed By 10/19/2017 I10 Essent ial (primary) hypertension LYLEMICK GodfreyD I 10/19/2017 I77.3 Merline rial fibromuscular dysplasia LYLE, SHAWN I 10/19/2017 Z87.442 Pe rsonal history of urinary calculi LYLE, SHAWN I 10/25/2018 E87.6 Hypo kalemia LYLE SHAWN I 10/25/2018 I10 Essent ial (primary) hypertension LYLE, SHAWN I 03/29/2019 KASIA ANDERSON Reason For Visi t M05.79 Rheumatoid arthritis with rheumatoid fac tor of multiple sites without organ or systems involvement 03/29/2019 BROOKLYNN MARQUEZ Reason For Visi t M05.79 Rheumatoid arthritis with rheumatoid fac tor of multiple sites without organ or systems involvement 03/29/2019 BROOKLYNN MARQUEZ Final Z79.899 Other long term acute care registered nurse (current) drug therapy 06/27/2019 SHERITA CORRAL Reason For Visi t Z12.31 Encounter for screening mammogram for ma lignant neoplasm of breast 07/11/2019 KASIA ANDERSON Reason For Visi t M05.79 Rheumatoid arthritis with rheumatoid fac tor of multiple sites without organ or systems involvement 07/11/2019 BROOKLYNN MARQUEZ Reason For Visi t M05.79 Rheumatoid arthritis with rheumatoid fac tor of multiple sites without organ or systems involvement 07/11/2019 BROOKLYNN MARQUEZ Final Z79.899 Other nursing home (current) drug therapy 09/21/2019 KASIA ANDERSON Final E87.6 Hypokalemia 09/21/2019 KASIA ANDERSON Reason For Visi t I10 Essential (primary) hypertension 09/21/2019 KASIA ANDERSON Final N20.0 Calculus of kidney 09/21/2019 SHAWN ALVARENGA I Final E87. 6 Hypokalemia 09/21/2019 SHAWN ALVARENGA I Reason For Visit I10 Essential (primary) hypertension 09/21/2019 SHAWN ALVARENGA I Final N20. 0 Calculus of kidney Procedures Code Description [place] [address] HEPA TIC FUNCTION PANEL 01/28/2016 47932 COMP LETE CBC, AUTOMATED 01/28/2016 00511 Offi ce or other outpatient visit for the evaluation and management of an established patient, which SHAWN ALVARENGA I 11/18/2017 39330 Offi ce or other outpatient visit for the evaluation and management of an established patient, which SHAWN ALVARENGA I 10/25/2018 09852 Offi ce or other outpatient visit for the evaluation and management of an established patient, which SHAWN ALVARENGA I 02/09/2019 Results Test Result Range CBC - 12/05/13 00:00 HCT 41.1 % 36.9-47.0 HGB 13.6 G/DL 12.0-16.0 MCH 30.2 PG 27-31 MCHC 33.1 G/DL 33-37 MCV 91.3 FL 81-99 MPV 12.0 FL 7.3-10.4 PLT 313 10^3u 130-400 RBC 4.5 10^6u 4.2-5.4 RDW 14.5 % 11.5-15.5 WBC 6.5 10^3u 4.8-10.8 URINE PROTEIN CREAT RATIO - 12/05/13 00: 00 UCREAT 103.38 MG/DL 15.0-327 UPRCRCA 0.1 UPRO 8 MG/DL 0-14 HEPATIC PANEL - 12/05/13 00:00 ALP 106 IU/L 32-92 ALT 28 IU/L 12-65 AST 16 IU/L 10-42 DBIL 0.0 MG/DL 0-0.3 IBILI 0.5 MG/DL 0.1-1.0 TBIL 0.5 MG/DL 0.1-1.0 TP 8.2 G/DL 6.0-8.3 Albumin/Globulin Ratio 1.0 0-8 RENAL PROFILE - 12/05/13 00:00 ALB 4.1 G/DL 3.5-5 BCR 9.8 10-20 BUN 8 MG/DL 7-18 CA 9.5 MG/DL 8.4-10.2 CL 101 MEQ/L 98-107 CO2 30.0 MEQ/L 22-28 CREA 0.82 MG/DL 0.6-1.0 EGFR 74 eGFR >= 60 GLU 67 MG/DL 70-105 K 3.5 MEQ/L 3.5-5.1 NA 140 MEQ/L 134-145 OSMSC 276.0 MOSML 280-300 PO4 2.2 MG/DL 1.9-4.5 Anion Gap 9.0 8-16 MG - 12/05/13 00:00 MG 1.8 MG/DL 1.7-2.8 UA - 12/06/13 00:00 PH 6.5 4.5-8.0 SG 1.005 1.003-1.035 UABILI NEGATIVE UABLD 1+ UACOLOR STRAW UAGLU NEGATIVE UAKET NEGATIVE UALEUK NEGATIVE UANIT NEGATIVE UAURO 0.2 0-0.2 CLARITY [address] PROTEIN NEGATIVE UA WBC NOWBC UA RBC R05 SQUAMOUS EPITHELIAL CELLS 2+ BACTERIA 1+ RENAL PROFILE - 02/02/14 00:00 ALB 4.4 G/DL 3.5-5 BCR 12.5 10-20 BUN 11 MG/DL 7-18 CA 9.9 MG/DL 8.4-10.2 CL 97 MEQ/L 98-107 CO2 28.3 MEQ/L 22-28 CREA 0.88 MG/DL 0.6-1.0 EGFR 68 eGFR >= 60 GLU 100 MG/DL 70-105 K 4.3 MEQ/L 3.5-5.1 NA 136 MEQ/L 134-145 OSMSC 271.4 MOSML 280-300 PO4 3.8 MG/DL 1.9-4.5 Anion Gap 10.7 8-16 CBC - 06/27/14 00:00 HCT 42.2 % 36.9-47.0 HGB 14.1 G/DL 12.0-16.0 MCH 30.5 PG 27-31 MCHC 33.4 G/DL 33-37 MCV 91.1 FL 81-99 MPV 12.2 FL 7.3-10.4 PLT 257 10^3u 130-400 RBC 4.6 10^6u 4.2-5.4 RDW 14.3 % 11.5-15.5 WBC 7.1 10^3u 4.8-10.8 HEPATIC PANEL - 07/02/14 00:00 ALP 77 IU/L 25-72 ALT 29 IU/L 12-65 AST 27 IU/L 10-42 DBIL 0.1 MG/DL 0-0.3 IBILI 0.4 MG/DL 0.1-1.0 TBIL 0.5 MG/DL 0.1-1.0 TP 7.3 G/DL 6.0-8.3 Albumin/Globulin Ratio 1.1 0-8 RENAL PROFILE - 07/02/14 00:00 ALB 3.8 G/DL 3.5-5 BCR 12.2 10-20 BUN 11 MG/DL 7-18 CA 9.1 MG/DL 8.4-10.2 CL 101 MEQ/L 98-107 CO2 27.9 MEQ/L 22-28 CREA 0.90 MG/DL 0.6-1.0 EGFR 66 eGFR >= 60 GLU 88 MG/DL 70-105 K 4.2 MEQ/L 3.5-5.1 NA 139 MEQ/L 134-145 OSMSC 276.4 MOSML 280-300 PO4 2.7 MG/DL 1.9-4.5 Anion Gap 10.1 8-16 CBC - 01/28/16 00:00 HCT 40.3 % 36.9-47.0 HGB 13.4 G/DL 12.0-16.0 MCH 29.9 PG 27-31 MCHC 33.3 G/DL 33-37 MCV 90.0 FL 81-99 MPV 12.5 FL 7.3-10.4 PLT 269 10^3u 130-400 RBC 4.5 10^6u 4.2-5.4 RDW 13.6 % 11.5-15.5 WBC 6.7 10^3u 4.8-10.8 HEPATIC PANEL - 01/28/16 00:00 ALB 4.4 G/DL 3.5-5 ALP 78 IU/L 25-72 ALT 26 IU/L 12-65 AST 20 IU/L 10-42 DBIL 0.1 MG/DL 0-0.3 IBILI 0.5 MG/DL 0.1-1.0 TBIL 0.6 MG/DL 0.1-1.0 TP 7.6 G/DL 6.0-8.3 Albumin/Globulin Ratio 1.4 0-8 Ova + Parasite Exam - 05/14/18 13:07 Ova + Parasite Exam Note Triiodothyronine,Free,Serum - 09/15/19 1 2:35 Triiodothyronine,Free,Serum 3.4 pg/mL 2. 0-4.4 Sed Rate - 11/24/19 14:10 Sed Rate 7 mm/hr 9-15 Radiology Report from DORISAleks on 2011 17:02:00 DIAGNOSTIC MODESTA GING REPORT [facility] - [address] [place] [address] PHONE #: [phone] FAX #: [phone] Name: DASHA CERVANTES Loc: EMalloryCVLO Radiology No: : 1965 Age: 47 Sex: F Status: DEP [facility] Unit No: [id number] Phys: Jose Alfredo Horne MD Acct: [id number] Reason For Exam: CHECK VELOCITY BEFORE PROCEDUE Exam Date: 07/15/2012 EXAMS: CPT CODE: [id number] DOPPLER ABDOMINAL 79970 REASON FOR EXAM: Hypertension. Check velocity before procedure COMPARISON: None TECHNIQUE: Limited Renal arterial Doppler of the right renal artery and vein. FINDINGS: Renal abdominal Doppler findings: The peak systolic velocity in the midabdominal aorta, approximately the level of the origin of the renal arteries is 87 cm/sec. The proximal origin of the right renal artery is very well visualized on the grayscale images. The peak systolic velocity in the midportion of the right main renal artery is ranging between 68 and 93 cm/sec. The the systolic velocity in the distal portion of the right adrenal artery, at the renal hilum is 80 cm/s. The waveforms in the right main renal artery demonstrates a normal brisk upstroke. There is antegrade diastolic flow seen. The resistive indices range between 0.68 and 0.71. Renal artery stenosis. The renal artery to aorta ratio is within normal limits. The right renal vein is patent. IMPRESSION: 1. Unremarkable limited renal arterial Doppler of the right kidney. No imaging evidence to suggest renal artery stenosis I have personally reviewed these images and approved or corrected the resident physician's interpretation. at 1702 RESIDENT: BJORN DE SOUZA MD Reported and signed by: DANIELLE SULLIVAN MD PAGE 1 Signed Report (CONTINUED) DIAGNOSTIC IMAGING REPORT [facility] - [address] [place] [address] PHONE #: [phone] FAX #: [phone] ------ Name: DASHA CERVANTES Loc: MackenzieCVLO Radiology No: : 1965 Age: 47 Sex: F Status: [facility] Unit No: [id number] Phys: Jose Alfredo Horne MD Acct: [id number] Reason For Exam: CHECK VELOCITY BEFORE PROCEDUE Exam Date: 07/15/2012 EXAMS: CPT CODE: [id number] DOPPLER ABDOMINAL 55198 <Continued> CC: Jose Alfredo Taylor MD Technologist: DELVIS CARVAJAL Transcribed Date/Time: 07/15/2012 (1701)V[facility] Therapist: IRMA Printed Date/Time: 07/15/2012 (1701) BATCH NO: N/A PAGE 2 Signed Report Encounters ACCT No. Visit Date/Time Discharge Status Pt. Type Provider Facility Loc./Unit Complaint [id number] 08/31/2016 10:35:03 Document Registration [id number] 11/24/2019 14:29:00 11/24/2019 23:59 :00 DIS Outpatient Lenin Smith [id number] 11/24/2019 14:27:00 11/24/2019 23:59 :00 DIS Outpatient Lenin Smith [id number] 01/03/2020 13:37:45 01/03/2020 23:59: 59 CLS Outpatient Javier Mcnamara [id number] 01/03/2020 11:20:04 01/03/2020 23:59: 59 CLS Outpatient Jose Elias Joy [id number] 12/26/2019 15:11:15 12/26/2019 23:59: 59 CLS Outpatient SHERITA CORRAL [id number] 12/11/2019 11:10:58 12/11/2019 23:59: 59 CLS Outpatient SHERITA CORRAL [id number] 11/21/2019 16:01:12 11/21/2019 23:59: 59 CLS Outpatient SHERITA CORRAL [id number] 10/27/2019 09:28:10 10/27/2019 23:59: 59 CLS Outpatient Bishop Calle [id number] 10/04/2019 11:49:20 10/04/2019 23:59: 59 CLS Outpatient Kolby Joyry [id number] 09/15/2019 10:49:06 09/15/2019 23:59: 59 CLS Outpatient Bishop Calle [id number] 04/28/2019 08:11:31 04/28/2019 23:59: 59 CLS Outpatient Bishop Calle [id number] 04/27/2019 09:29:32 04/27/2019 23:59: 59 CLS Outpatient Bishop Calle [id number] 02/28/2019 11:41:09 02/28/2019 23:59: 59 CLS Outpatient SHERITA CORRAL [id number] 02/24/2019 08:05:42 02/24/2019 23:59: 59 CLS Outpatient SHERITA CORRAL [id number] 01/12/2019 08:50:22 01/12/2019 23:59: 59 CLS Outpatient SHERITA CORRAL [id number] 08/09/2018 11:40:46 08/09/2018 23:59: 59 CLS Outpatient BenitaJose Elias [id number] 07/28/2018 11:00:00 07/28/2018 23:59: 59 CLS Outpatient ChristophersergeJose Elias [id number] 07/26/2018 11:12:08 07/26/2018 23:59: 59 CLS Outpatient ChristophersergeJose Elias [id number] 06/03/2018 10:50:20 06/03/2018 23:59: 59 CLS Outpatient ChristophersergeJose Elias [id number] 04/12/2018 15:36:27 04/12/2018 23:59: 59 CLS Outpatient SHERITA CORRAL [id number] 04/07/2018 17:20:44 04/07/2018 23:59: 59 CLS Outpatient Grant Reyes [id number] 04/06/2018 09:21:15 04/06/2018 23:59: 59 CLS Outpatient Jose Elias Joy [id number] 03/25/2018 09:54:18 03/25/2018 23:59: 59 CLS Outpatient SHERITA CORRAL [id number] 10/26/2017 08:26:04 10/26/2017 23:59: 59 CLS Outpatient SHERITA CORRAL [id number] 07/07/2017 08:04:41 07/07/2017 23:59: 59 CLS Outpatient SHERITA CORRAL [id number] 07/05/2017 15:37:56 07/05/2017 23:59: 59 CLS Outpatient SHERITA CORRAL [id number] 04/29/2016 08:15:44 04/29/2016 23:59: 59 CLS Outpatient SHERITA CORRAL [id number] 04/23/2016 09:44:44 04/23/2016 23:59: 59 CLS Outpatient SHERITA CORRAL [id number] 11/12/2015 11:00:06 11/12/2015 23:59: 59 CLS Outpatient SHERITA CORRAL [id number] 09/27/2015 11:18:39 09/27/2015 23:59: 59 CLS Outpatient SHERITA CORRAL [id number] 06/11/2015 15:51:32 06/11/2015 23:59: 59 CLS Outpatient SHERITA CORRAL [id number] 09/10/2014 16:18:33 09/10/2014 23:59: 59 CLS Outpatient SHERITA CORRAL [id number] 04/19/2014 10:08:47 04/19/2014 23:59: 59 CLS Outpatient SHERITA CORRAL [id number] 04/17/2014 12:08:16 04/17/2014 23:59: 59 CLS Outpatient SHERITA CORRAL [id number] 09/21/2019 13:41:15 0 23:59:59 DIS Outpatient SHAWN ALVARENGA [facility] [place] Lab lab [id number] 09/21/2019 13:30:00 0 23:59:59 DIS Outpatient KASIA ANDERSON [facility] [id number] 07/11/2019 13:35:44 9 23:59:59 DIS Outpatient BROOKLYNN MARQUEZ [facility] [place] Lab lab [id number] 07/11/2019 13:30:00 9 23:59:59 DIS Outpatient KASIA ANDERSON [facility] [id number] 06/27/2019 07:24:11 9 23:59:59 DIS Outpatient SHERITA CORRAL [facility] RAD screening [id number] 03/29/2019 13:45:04 9 23:59:59 DIS Outpatient BROOKLYNN MARQUEZ [facility] [place] Lab lab [id number] 03/29/2019 13:30:00 9 23:59:59 DIS Outpatient KASIA ANDERSON [facility] Family [id number] 11/22/2018 13:39:06 9 23:59:59 DIS Outpatient BROOKLYNN MARQUEZ [facility] [place] Lab lab [id number] 11/22/2018 13:30:00 9 23:59:59 DIS Outpatient KASIA ANDERSON [facility] [id number] 10/06/2018 14:48:59 9 23:59:59 DIS Outpatient SHAWN ALVARENGA [facility] Lab lab [id number] 10/06/2018 13:30:00 9 23:59:59 DIS Outpatient KASIA ANDERSON [facility] Family [id number] 08/18/2018 13:31:16 8 23:59:59 DIS Outpatient BROOKLYNN MARQUEZ [facility] [place] Lab lab [id number] 08/18/2018 13:30:00 8 23:59:59 DIS Outpatient KASIA ANDERSON [facility] Family [id number] 07/14/2018 13:30:00 8 23:59:[address] [facility] [id number] 06/08/2018 07:15:49 8 23:59:59 DIS Outpatient ELLIS SHERITA Javier [facility] RAD screening [id number] 04/11/2018 13:52:41 8 23:59:59 DIS Outpatient CHAITANYA BROOKLYNN CARABALLO [facility] [place] Lab lab [id number] 04/11/2018 13:29:07 8 23:59:59 DIS Outpatient KASIA ANDERSON [facility] Family [id number] 01/26/2018 13:28:28 8 23:59:59 DIS Outpatient ARVIND ISAACS [facility] [place] Lab lab [id number] 01/26/2018 13:26:54 8 23:59:59 DIS Outpatient KASIA ANDERSON [facility] Family [id number] 01/12/2018 13:38:35 8 23:59:59 DIS Outpatient BROOKLYNN MARQUEZ [facility] lab [id number] 01/12/2018 13:29:07 8 23:59:59 DIS Outpatient KASIA ANDERSON [facility] [id number] 10/25/2017 13:32:15 8 23:59:59 DIS Outpatient SHAWN ALVARENGA [facility] [place] Lab lab [id number] 10/25/2017 13:30:00 8 23:59:59 DIS Outpatient KASIA ANDERSON [facility] Family [id number] 10/19/2017 13:30:00 8 23:59:[address] [facility] [place] Family [id number] 10/06/2017 13:27:55 8 23:59:59 DIS Outpatient SHAWN ALVARENGA [facility] [place] Lab labt [id number] 10/06/2017 13:26:20 8 23:59:59 DIS Outpatient KASIA ANDERSON [facility] Family [id number] 10/05/2017 13:30:00 8 23:59:[address] [facility] [place] Family [id number] 09/15/2017 13:33:07 7 23:59:59 DIS Outpatient BROOKLYNN MARQUEZ [facility] Lab lab [id number] 09/15/2017 13:28:45 7 23:59:59 DIS Outpatient KASIA ANDERSON [facility] [id number] 06/21/2017 11:32:25 7 23:59:59 DIS Outpatient BROOKLYNN MARQUEZ [facility] lab [id number] 06/21/2017 11:30:00 7 23:59:59 DIS Outpatient KASIA ANDERSON [facility] [id number] 03/30/2017 09:22:40 7 23:59:59 DIS Outpatient BROOKLYNN MARQUEZ [facility] [place] Lab lab [id number] 03/30/2017 09:21:24 7 23:59:59 DIS Outpatient KASIA ANDERSON [facility] Family [id number] 03/09/2017 10:00:00 7 23:59:59 CLS Outpatient KASIA ANDERSON [facility] Family [id number] 03/09/2017 09:54:58 7 23:59:59 CLS Outpatient U BROOKLYNN CARABALLO [facility] [place] Lab lab [id number] 12/01/2016 08:10:58 7 23:59:59 CLS Outpatient SHERITA CORRAL [facility] RAD screening [id number] 09/15/2016 12:01:13 6 23:59:59 CLS Outpatient SHAWN ALVARENGA [facility] [place] Lab lab [id number] 09/15/2016 12:00:00 6 23:59:59 CLS Outpatient LINDSEY ANDERSONBekah Anderson [facility] [id number] 09/08/2016 08:43:52 6 23:59:59 CLS Outpatient ARVIND ISAACS Aleks Christopher [facility] [place] Lab lab [id number] 09/08/2016 08:20:43 6 23:59:59 CLS Outpatient KASIA ANDERSON [facility] [id number] 01/28/2016 13:28:00 01/28/2016 13:28 :00 DIS Outpatient KASIA ANDERSON [facility] [id number] 2015 12:01:00 2015 12:01 :00 DIS Outpatient KASIA ANDERSON [facility] [id number] 07/02/2014 09:16:00 07/02/2014 09:16 :00 DIS Outpatient KASIA ANDERSON [facility] [id number] 06/27/2014 08:29:00 06/27/2014 08:29 :00 DIS Outpatient KASIA ANDERSON [facility] [id number] 02/02/2014 08:52:00 02/02/2014 08:52 :00 DIS Outpatient KIRSTIN FISHER [facility] [id number] 12/05/2013 08:33:00 12/05/2013 08:33 :00 DIS Outpatient KASIA ANDERSON [facility] [id number] 08/19/2015 00:00:00 Document Registration [id number] 08/19/2013 00:00:00 Document Registration [id number] 08/19/2013 00:00:00 Document Registration [id number] 08/19/2013 00:00:00 Document Registration [id number] 08/19/2013 00:00:00 Document Registration [id number] 07/15/2012 17:02:00 012 23:59:59 [facility] [id number] 09/19/2019 06:06:00 Document Registration [id number] 05/26/2018 06:08:00 Document Registration
--- OUTSIDE RECORDS SUMMARY | 2020-01-14 11:32 | XMS REPORT ---
Author Author [facility] Medic al Staff, DASHA Organization Year [facility] Address [address] [id number] Phone [phone] Care Team Providers Care Insurance Service Representative Name Role Phone KASIA ANDERSON APRN PP [phone] Summary purpose TRANSITION OF CARE AUTO GENERATION [...] diagnostic tests and/or laboratory data RESULTS Chemistry [id number]:40:00 Result Normal Range Units Sodium 139 134-145 mEq/l Potassium 4.2 3.5-5.1 mEq/l Chloride 101 98-107 mEq/l CO2 27.9 22-28 mEq/l Glucose 88 70-105 mg/dl BUN 11 7-18 mg/dl Creatinine 0.90 0.6-1.0 mg/dl Calcium 9.1 8.4-10.2 mg/dl PO4 2.7 1.9-4.5 mg/dl TP - Total Protein 7.3 6.0-8.3 g /dl Albumin 3.8 3.5-5 g/dl Bilirubin - Total 0.5 0.1-1.0 mg /dl Direct Bilirubin 0.1 0-0.3 mg/ dl Bilirubin Indirect 0.4 0.1-1.0 m g/dl AST 27 10-42 IU/L ALT 29 12-65 IU/L ALP H 77 25-72 IU/L Osmolality L 276.4 280-300 mOsm/L Albumin/Globulin Ratio 1.1 0-8 Anion GAP 10.1 8-16 BUN/Creatinine Ratio 12.2 10-20 Estimated GFR 66 >= 60 mL/min /1.7 History of procedures No procedures recorded for [...]
--- OUTSIDE RECORDS SUMMARY | 2020-01-14 11:32 | XMS REPORT ---
Author Author [facility] Medic al Staff, DASHA Organization [facility] Address [address] [id number] Phone [phone] Care Team Providers Care Bus Starter Name Role Phone KASIA ANDERSON APRN PP [phone] Summary purpose TRANSITION OF CARE AUTO GENERATION [...] diagnostic tests and/or laboratory data RESULTS Hematology [id number]:40:00 Result Normal Range Units WBC 7.1 4.8-10.8 103/uL RBC 4.6 4.2-5.4 106/uL HGB 14.1 12.0-16.0 g/dl HCT 42.2 36.9-47.0 % MCV 91.1 81-99 FL MCH 30.5 27-31 pg MCHC 33.4 33-37 g/dl RDW 14.3 11.5-15.5 % PLT 257 130-400 103/uL MPV H 12.2 7.3-10.4 FL History of procedures No procedures [...]
--- OUTSIDE RECORDS SUMMARY | 2020-01-14 11:32 | XMS REPORT ---
Author Author [facility] Medic al Staff, DASHA Organization [facility] Address [address] [place], [place] [address] Phone [phone] Care Team Providers Care Service Desk Technician Name Role Phone KASIA ANDERSON APRN PP [phone] Summary purpose TRANSITION OF CARE AUTO GENERATION [...] diagnostic tests and/or laboratory data RESULTS Chemistry [id number]:40:00 Result Normal Range Units Sodium 139 134-145 [...] >= 60 mL/min /1.7 History of procedures Procedure Code Code Type Description Date Performed Performing Physician [id number] CPT-4 HEPATIC FUNCTION PANEL 07-02-2014 DANNIELLE ANDERSON 50230 CPT-4 RENAL FUNCTION PANEL 07-02-2014 SHARYN ANDERSON Functional status No functional or cognitive [...]
--- NOTE | 2020-01-14 11:37 | ED Upper Extremity ---
General Stated Complaint: GROIN PAIN/L LEG SWELLING Source: patient Exam Limitations: no limitations History of Present Illness Date Seen by Provider: Jan 14, 2020 Time Seen by Provider: 11:35 Initial Comments To ER by private vehicle from home in [facility] with reports of left hip pain anterior worse with weightbearing onset yesterday. She noticed it while she was shopping at [employer]. No injury no fall. Pain is worse with movement of the leg and much worse with weightbearing. She also feels like her lower leg is a bit swollen. History of rheumatoid arthritis, she called her rheumatoid arthritis doctor yesterday who called in some prednisone for her. She took a dose of that yesterday. She is incidentally noted to be febrile at 101.2. She denies any cough or shortness of breath. She takes Enbrel once weekly. Her daughter of influenza A 1 month ago. Onset: just prior to arrival Severity: moderate Pain/Injury Location: left other Method of Injury: unknown Modifying Factors: Worse With Movement Allergies and Home Medications Allergies Coded Allergies: acetaminophen (Verified Allergy, Unknown, 01/14/20) hydrocodone (Verified Allergy, Unknown, 01/14/20) Patient Home Medication List Home Medication List Reviewed: Yes Review of Systems Constitutional: see HPI EENTM: see HPI Respiratory: no symptoms reported Cardiovascular: no symptoms reported Genitourinary: no symptoms reported Musculoskeletal: see HPI Skin: no symptoms reported Psychiatric/Neurological: No Symptoms Reported Past Tmrnahg-Mybyvj-Lwodon Hx Patient Social History Recent Foreign Travel: No Contact w/Someone Who Travel: No Physical Exam Vital Signs Vital Signs - First Documented 01/14/20 11:24 Temp 38.7 Pulse 93 Resp 14 B/P (MAP) 106/84 (91) Pulse Ox 100 O2 Delivery Room Air Capillary Refill : Height, Weight, BMI Height: '" Weight: lbs. oz. kg; BMI Method: General Appearance: WD/WN, no apparent distress HEENT: PERRL/EOMI, normal ENT inspection Respiratory: no respiratory distress, no accessory muscle use Shoulder: normal inspection, non-tender Wrist: Yes normal inspection, Yes non-tender Hand: normal inspection, non-tender Neurologic/Psychiatric: alert, normal mood/affect, oriented x 3 Skin: normal color, warm/dry Difficulty with weightbearing transferring from the chair to the bed. Passive flexion of the hip does not cause any increased pain, extension of the hip does cause significantly increased pain. Progress/Results/Core Measures Results/Orders Lab Results Laboratory Tests Test 01/14/20 11:40 01/14/20 12:24 Range/Units White Blood Count 10.2 4.3-11.0 10^3/uL Red Blood Count 4.15 L 4.35-5.85 10^6/uL Hemoglobin 12.8 11.5-16.0 G/DL Hematocrit 38 35-52 % Mean Corpuscular Volume 92 80-99 FL Mean Corpuscular Hemoglobin 31 25-34 PG Mean Corpuscular Hemoglobin Concent 34 32-36 G/DL Red Cell Distribution Width 14.6 H 10.0-14.5 % Platelet Count 256 130-400 10^3/uL Mean Platelet Volume 11.8 H 7.4-10.4 FL Neutrophils (%) (Auto) 74 42-75 % Lymphocytes (%) (Auto) 13 12-44 % Monocytes (%) (Auto) 13 H 0-12 % Eosinophils (%) (Auto) 0 0-10 % Basophils (%) (Auto) 0 0-10 % Neutrophils # (Auto) 7.6 1.8-7.8 X 10^3 Lymphocytes # (Auto) 1.3 1.0-4.0 X 10^3 Monocytes # (Auto) 1.3 H 0.0-1.0 X 10^3 Eosinophils # (Auto) 0.0 0.0-0.3 10^3/uL Basophils # (Auto) 0.0 0.0-0.1 10^3/uL Erythrocyte Sedimentation Rate 31 H 0-30 MM/HR Sodium Level 139 135-145 MMOL/L Potassium Level 2.8 L 3.6-5.0 MMOL/L Chloride Level 101 98-107 MMOL/L Carbon Dioxide Level 26 21-32 MMOL/L Anion Gap 12 5-14 MMOL/L Blood Urea Nitrogen 8 7-18 MG/DL Creatinine 0.80 0.60-1.30 MG/DL Estimat Glomerular Filtration Rate > 60 BUN/Creatinine Ratio 10 Glucose Level 105 70-105 MG/DL Lactic Acid Level 1.92 0.50-2.00 MMOL/L Calcium Level 9.6 8.5-10.1 MG/DL Corrected Calcium 9.4 8.5-10.1 MG/DL Total Bilirubin 1.8 H 0.1-1.0 MG/DL Aspartate Amino Transf (AST/SGOT) 40 H 5-34 U/L Alanine Aminotransferase (ALT/SGPT) 37 0-55 U/L Alkaline Phosphatase 61 40-136 U/L C-Reactive Protein High Sensitivity 8.71 H 0.00-0.50 MG/DL Total Protein 7.2 6.4-8.2 GM/DL Albumin 4.2 3.2-4.5 GM/DL Urine Color YELLOW Urine Clarity CLEAR Urine pH 8.0 5-9 Urine Specific Dorris 1.015 L 1.016-1.022 Urine Protein NEGATIVE NEGATIVE Urine Glucose (UA) NEGATIVE NEGATIVE Urine Ketones NEGATIVE NEGATIVE Urine Nitrite NEGATIVE NEGATIVE Urine Bilirubin NEGATIVE NEGATIVE Urine Urobilinogen 4.0 < = 1.0 MG/DL Urine Leukocyte Esterase 1+ H NEGATIVE Urine RBC (Auto) TRACE-I NEGATIVE Urine RBC RARE /HPF Urine WBC 5-10 H /HPF Urine Squamous Epithelial Cells 10-25 H /HPF Urine Crystals NONE /LPF Urine Bacteria TRACE /HPF Urine Casts NONE /LPF Urine Mucus NEGATIVE /LPF Urine Culture Indicated YES Micro Results Microbiology 01/14/20 Influenza Types A,B Antigen (DARLENE) - Final, Complete My Orders Orders - CACHORRO REZA [employer] Cbc With Automated Diff (01/14/20 11:32) Comprehensive Metabolic Panel (01/14/20 11:32) Chest 1 View, Ap/Pa Only (01/14/20 11:32) Ua Culture If Indicated (01/14/20 11:32) Erythrocyte Sedimentation Rate (01/14/20 11:32) Hs C Reactive Protein (01/14/20 11:32) Blood Culture (01/14/20 11:32) Lactic Acid Analyzer (01/14/20 11:32) Ed Iv/Invasive Line Start (01/14/20 11:32) Ct Pelvis W (01/14/20 11:37) Fentanyl Injection (Sublimaze Injection (01/14/20 11:45) Ibuprofen Tablet (Motrin Tablet) (01/14/20 11:45) Influenza A And B Antigens (01/14/20 11:41) Acetaminophen Tablet (Tylenol Tablet) (01/14/20 12:15) Oseltamivir 75 Mg Capsule (Tamiflu 75 (01/14/20 12:15) Iohexol Injection (Omnipaque 350 Mg/Ml 1 (01/14/20 12:30) Received Contrast (Hold Metformin- Contr (01/14/20 12:30) Sodium Chloride Flush (Catheter Flush Sy (01/14/20 12:30) Ns (Ivpb) (Sodium Chloride 0.9% Ivpb Bag (01/14/20 12:30) Hydromorphone Injection (Dilaudid Inject (01/14/20 12:30) Urine Culture (01/14/20 12:24) Procalcitonin (Pct) (01/14/20 12:59) Medications Given in ED Current Medications Medications Dose Ordered Sig/Dave Route Start Time Stop Time Status Last Admin Dose Admin Acetaminophen 1,000 mg ONCE ONCE PO 01/14/20 12:15 01/14/20 12:16 DC 01/14/20 12:18 1,000 MG Fentanyl Citrate 50 mcg ONCE ONCE IVP 01/14/20 11:45 01/14/20 11:46 DC 01/14/20 11:50 50 MCG Hydromorphone HCl 0.5 mg ONCE ONCE IV 01/14/20 12:30 01/14/20 12:31 DC 01/14/20 12:55 0.5 MG Iohexol 100 ml ONCE ONCE IV 01/14/20 12:30 01/14/20 12:31 DC 01/14/20 12:42 100 ML Oseltamivir Phosphate 75 mg ONCE ONCE PO 01/14/20 12:15 01/14/20 12:16 DC 01/14/20 12:16 75 MG Sodium Chloride 10 ml NEEDED PRN IV 01/14/20 12:30 01/14/20 12:42 10 ML Sodium Chloride 100 ml ONCE ONCE IV 01/14/20 12:30 01/14/20 12:31 DC 01/14/20 12:42 80 ML Vital Signs/I&O 01/14/20 01/14/20 11:24 12:18 Temp 38.7 38.7 Pulse 93 Resp 14 B/P (MAP) 106/84 (91) Pulse Ox 100 O2 Delivery Room Air Diagnostic Imaging Diagonstic Imaging: CT Comments NAME: DASHA CERVANTES [facility] REC#: [id number] PT STATUS: REG ER : 1965 PHYSICIAN: CACHORRO REZA APRN ADMIT DATE: 01/14/20/ER Draft Date of Exam:01/14/20 CT PELVIS W PROCEDURE: CT pelvis with contrast. TECHNIQUE: Oral and intravenous contrast were administered with pelvic CT performed. Auto Exposure Controls were utilized during the CT exam to meet ALARA standards for radiation dose reduction. INDICATION: Left groin pain and swelling. FINDINGS: Perirectal and perianal spaces appeared unremarkable. Inguinal canals and anteromedial thighs are unremarkable. There is noninflamed sigmoid diverticulosis. No inguinal adenopathy or hernia. Pubic region showed no suspicious finding. No bony destructive process. There are some degenerative changes across the pubic symphysis or osteitis pubis. This is chronic, SI joints unremarkable. Hips intact. No intra or extraperitoneal pelvic inflammatory process. Urinary bladder unremarkable. Uterus absent. There is no adnexal lesion. No soft tissue gas, abscess, hematoma or other acute fluid collection. We note normal enhancement of the bilateral visualized superficial femoral arteries and veins as well as the bilateral iliac arterial and venous structures. We note small to moderate left hip joint effusion without opaque loose body IMPRESSION: Patient has a left hip joint effusion without bony destruction or loose body, no fracture. There are degenerative changes versus osteitis pubis as a nonacute finding. No lymphadenopathy, mass, fluid collection or vascular abnormality. Noninflamed sigmoid diverticulosis noted. Dictated on workstation # [id number] Dict: 01/14/20 1247 Trans: 01/14/20 1302 CV [id number] Interpreted by: SHERWIN GUSMAN Electronically signed by: Departure Communication (Admissions) Time/Spoke to Admitting Phy: 13:[address] Corona, will admit. Knowing that she is influenza A and B+, this would make a viral synovitis of the left hip much more likely than the septic arthritis. start her on Tamiflu, admitted for pain control as she is unable to transfer to the commode without assistance due to pain. Unable to perform activities of daily living at this time. We don't have also on-call today, I'll have the nurses consult him tomorrow for help with determining the need for hip arthrocentesis Impression Primary Impression: Influenza A Additional Impressions: Influenza B Transient synovitis, left hip Disposition: ADMITTED INPATIENT Condition: Stable Admissions Decision to Admit Reason: Admit from ER (General) Decision to Admit/Date: Jan 14, 2020 Time/Decision to Admit Time: 12:29 Departure-Patient Inst. Referrals: SHERITA CORRAL (PCP/Family) Primary Care Physician CACHORRO REZA APRN Jan 14, 2020 11:37
[2020-01-14] MEDS ORDERED: IBUPROFEN 800 MG (MOTRIN) TAB PO ONE (11:45)
[2020-01-14] MEDS ORDERED: fentaNYL INJECTION 100 MCG/2 ML AMP IVP ONE (11:45)
[2020-01-14 11:53] LABS: BASOPHILS % (AUTO) 0 % (0-10); EOSINOPHILS % (AUTO) 0 % (0-10); HEMATOCRIT 38 % (35-52); HEMOGLOBIN 12.8 G/DL (11.5-16.0); LYMPHOCYTES # (AUTO) 1.3 X 10^3 (1.0-4.0); LYMPHOCYTES % (AUTO) 13 % (12-44); MEAN CORPUSCULAR HEMOGLOBIN 31 PG (25-34); MEAN CORPUSCULAR HGB CONC 34 G/DL (32-36); MEAN CORPUSCULAR VOLUME 92 FL (80-99); MEAN PLATELET VOLUME 11.8 FL (7.4-10.4); MONOCYTES # (AUTO) 1.3 X 10^3 (0.0-1.0); MONOCYTES % (AUTO) 13 % (0-12); NEUTROPHILS # (AUTO) 7.6 X 10^3 (1.8-7.8); NEUTROPHILS % (AUTO) 74 % (42-75); PLATELET COUNT 256 10^3/uL (130-400); RED CELL DISTRIBUTION WIDTH 14.6 % (10.0-14.5); WHITE BLOOD COUNT 10.2 10^3/uL (4.3-11.0)
--- NOTE | 2020-01-14 12:01 | Diagnostic Imaging Report ---
INDICATION: Leg swelling. FINDINGS: Portable chest. The lungs are well-aerated and clear. Heart upper limits of normal. There is no evidence of pulmonary edema. No pneumothorax or pleural effusion. No bony abnormalities. IMPRESSION: No acute abnormalities of the chest. Dictated by: Dictated on workstation # [id number]
[2020-01-14 12:14] LABS: ERYTHROCYTE SEDIMENTATION RATE 31 MM/HR (0-30)
[2020-01-14] MEDS ORDERED: OSELTAMIVIR 75 MG (TAMIFLU) CAPSULE PO ONE (12:15)
[2020-01-14] MEDS ORDERED: ACETAMINOPHEN 500 MG TAB (TYLENOL) PO ONE (12:15)
[2020-01-14 12:17] LABS: ALANINE AMINOTRANSFERASE 37 U/L (0-55); ALBUMIN 4.2 GM/DL (3.2-4.5); ALKALINE PHOSPHATASE 61 U/L (40-136); BILIRUBIN,TOTAL 1.8 MG/DL (0.1-1.0); BUN/CREATININE RATIO 10; CALCIUM 9.6 MG/DL (8.5-10.1); CARBON DIOXIDE 26 MMOL/L (21-32); CHLORIDE 101 MMOL/L (98-107); GFR ESTIMATED > 60; GLUCOSE 105 MG/DL (70-105); POTASSIUM 2.8 MMOL/L (3.6-5.0); SODIUM 139 MMOL/L (135-145); TOTAL PROTEIN 7.2 GM/DL (6.4-8.2)
[2020-01-14] MEDS ORDERED: HYDROmorphone 2 MG/ML VIAL (DILAUDID) IV ONE (12:30)
[2020-01-14] MEDS ORDERED: NS 100 ML (IVPB) BAG IV ONE (12:30)
[2020-01-14] MEDS ORDERED: CATHETER FLUSH 10 ML SYR IV PRN ×2 (12:30→14:15)
[2020-01-14] MEDS ORDERED: HOLD METFORMIN - RECEIVED CONTRAST 20 ML VIAL IV SCH (12:30)
[2020-01-14] MEDS ORDERED: IOHEXOL 350 MG/ML 100 ML (OMNIPAQUE 350) VIAL IV ONE (12:30)
[2020-01-14 12:37] LABS: BILIRUBIN,URINE NEGATIVE (NEGATIVE); CLARITY,URINE CLEAR; COLOR,URINE YELLOW; GLUCOSE, URINE (UA) NEGATIVE (NEGATIVE); KETONES,URINE NEGATIVE (NEGATIVE); LEUKOCYTE ESTERASE ,URINE 1+ (NEGATIVE); NITRITE,URINE NEGATIVE (NEGATIVE); PROTEIN,URINE NEGATIVE (NEGATIVE)
[2020-01-14 12:46] LABS: BACTERIA,URINE TRACE /HPF; RBC,URINE RARE /HPF
--- NOTE | 2020-01-14 13:03 | Diagnostic Imaging Report ---
PROCEDURE: CT pelvis with contrast. TECHNIQUE: Oral and intravenous contrast were administered with pelvic CT performed. Auto Exposure Controls were utilized during the CT exam to meet ALARA standards for radiation dose reduction. INDICATION: Left groin pain and swelling. FINDINGS: Perirectal and perianal spaces appeared unremarkable. Inguinal canals and anteromedial thighs are unremarkable. There is noninflamed sigmoid diverticulosis. No inguinal adenopathy or hernia. Pubic region showed no suspicious finding. No bony destructive process. There are some degenerative changes across the pubic symphysis or osteitis pubis. This is chronic, SI joints unremarkable. Hips intact. No intra or extraperitoneal pelvic inflammatory process. Urinary bladder unremarkable. Uterus absent. There is no adnexal lesion. No soft tissue gas, abscess, hematoma or other acute fluid collection. We note normal enhancement of the bilateral visualized superficial femoral arteries and veins as well as the bilateral iliac arterial and venous structures. We note small to moderate left hip joint effusion without opaque loose body IMPRESSION: Patient has a left hip joint effusion without bony destruction or loose body, no fracture. There are degenerative changes versus osteitis pubis as a nonacute finding. No lymphadenopathy, mass, fluid collection or vascular abnormality. Noninflamed sigmoid diverticulosis noted. Dictated by: Dictated on workstation # [id number]
[2020-01-14] MEDS ORDERED: ONDANSETRON 4 MG/2 ML (SDV) Z0FRAN ONE (13:08)
[2020-01-14] MEDS ORDERED: ONDANSETRON 4 MG/2 ML (SDV) Z0FRAN IVP ONE (13:15)
[2020-01-14] MEDS ORDERED: VANCOMYCIN INJECTION 1,250 MG in NS (IVPB) 250 ML IV SCH (13:15)
[2020-01-14] MEDS ORDERED: cefTRIAXone FOR IV USE 1,000 MG in WATER (STERILE) FOR INJECTION 10 ML IV ONE (13:15)
--- OUTSIDE RECORDS SUMMARY | 2020-01-14 13:36 | XMS REPORT | Continuity of Care Document ---
Demographics Preferred Language Unknown Marital Status Unknown Islam Affiliation Unknown Race Unknown Ethnic Group Unknown [...] involvement 03/29/2019 BROOKLYNN MARQUEZ Final Z79.899 Other terminal worker (current) drug therapy 06/27/2019 SHERITA CORRAL Reason [...] involvement 07/11/2019 BROOKLYNN MARQUEZ Final Z79.899 Other fdc (current) drug therapy 09/21/2019 KASIA ANDERSON Final [...] Code Description [place] [address] HEPA TIC FUNCTION PANEL 01/28/2016 16849 COMP LETE CBC, AUTOMATED 01/28/2016 89957 Offi ce or other outpatient visit for the evaluation and management of an established patient, which SHAWN ALVARENGA I 11/18/2017 79919 Offi ce or other outpatient visit for the evaluation and management of an established patient, which SHAWN ALVARENGA I 10/25/2018 68735 Offi ce or other outpatient visit for [...] 11/24/19 14:10 Sed Rate 7 mm/hr 9-15 Complete blood count (CBC) with automate d white blood cell (WBC) differential - 01/14/20 11:40 Blood leukocytes automated count (number/volume) 10.2 10*3/uL 4.3-11.0 Blood erythrocytes automated count (number/volume) 4.15 10*6/uL 4.35-5.85 Venous blood hemoglobin measurement (mass/volume) 12.8 g/dL 11.5-16.0 Blood hematocrit (volume fraction) 38 % 35-52 Automated erythrocyte mean corpuscular volume 92 [ foz_us] 80-99 Automated erythrocyte mean corpuscular h emoglobin (mass per erythrocyte) 31 pg 25-34 Automated erythrocyte mean corpuscular h emoglobin concentration measurement (mass/volume) 34 g/dL 32-36 Automated erythrocyte distribution width ratio 14. 6 % 10.0- 14.5 Automated blood platelet count (count/volume) 256 10*3/uL 130-400 Automated blood platelet mean volume measurement 11.8 [foz_us] 7.4-10.4 Automated blood neutrophils/100 leukocytes 74 % 42-75 Automated blood lymphocytes/100 leukocytes 13 % 12-44 Blood monocytes/100 leukocytes 13 % 0-12 Automated blood eosinophils/100 leukocytes 0 % 0-10 Automated blood basophils/100 leukocytes 0 % 0-10 Blood neutrophils automated count (number/volume) 7.6 10*3 1.8-7.8 Blood lymphocytes automated count (number/volume) 1.3 10*3 1.0-4.0 Blood monocytes automated count (number/volume) 1. 3 10*3 0.0-1.0 Automated eosinophil count 0.0 10*3/uL 0 .0-0.3 Automated blood basophil count (count/volume) 0.0 10*3/uL 0.0-0.1 Blood lactic acid measurement (moles/vol ume) - 01/14/20 11:40 Blood lactic acid measurement (moles/volume) 1.92 mmol/L 0.50-2.00 Erythrocyte sedimentation rate by barb gren method - 01/14/20 11:40 Erythrocyte sedimentation rate by westergren method 31 mm 0- 30 Comprehensive metabolic panel - 01/14/20 11:40 Serum or plasma sodium measurement (moles/volume) 139 mmol/L 135-145 Serum or plasma potassium measurement (moles/volume) 2.8 mmol/L 3.6-5.0 Serum or plasma chloride measurement (moles/volume) 101 mmol/L 98-107 Carbon dioxide 26 mmol/L 21-32 Serum or plasma anion gap determination (moles/volume) 12 mmol/L 5-14 Serum or plasma urea nitrogen measurement (mass/volume ) 8 mg/dL 7-18 Serum or plasma creatinine measurement (mass/volume) 0.80 mg/dL 0.60-1.30 Serum or plasma urea nitrogen/creatinine mass ratio 10 NRG Serum or plasma creatinine measurement w ith calculation of estimated glomerular filtration rate > NRG Serum or plasma glucose measurement (mass/volume) 105 mg/dL 70-105 Serum or plasma calcium measurement (mass/volume) 9.6 mg/dL 8.5-10.1 Serum or plasma total bilirubin measurement (mass/volu me) 1.8 mg/dL 0.1-1.0 Serum or plasma alkaline phosphatase tawny surement (enzymatic activity/volume) 61 U/L 40-136 Serum or plasma aspartate aminotransfera se measurement (enzymatic activity/volume) 40 U/L 5-34 Serum or plasma alanine aminotransferase measurement (enzymatic activity/volume) 37 U/L 0-55 Serum or plasma protein measurement (mass/volume) 7.2 g/dL 6.4-8.2 Serum or plasma albumin measurement (mass/volume) 4.2 g/dL 3.2-4.5 CALCIUM CORRECTED 9.4 mg/dL 8.5-10.1 Serum or plasma C reactive protein measu rement (mass/volume) - 01/14/20 11:40 Serum or plasma C reactive protein measurement (mass/v olume) 8.71 mg/dL 0.00-0.50 Influenza virus A and B antigen detectio n - 01/14/20 11:44 CALL POSITIVES (F1 HELP) CALLED TO JOE AT 1204 NRG FLU RESULT POSITIVE FOR INFLUENZA A AND B ANTIGENS NRG Complete urinalysis with reflex to cultu re - 01/14/20 12:24 Urine color determination YELLOW NRG Urine clarity determination CLEAR NR G Urine pH measurement by test strip 8.0 5-9 Specific gravity of urine by test strip 1.015 1.016-1.022 Urine protein assay by test strip, semi-quantitative NEGATIVE NEGATIVE Urine glucose detection by automated test strip NE GATIVE NEGATIVE Erythrocytes detection in urine sediment by light micr oscopy TRACE-I NEGATIVE Urine ketones detection by automated test strip NE GATIVE NEGATIVE Urine nitrite detection by test strip NEGATIVE NEGATIVE Urine total bilirubin detection by test strip NEGA TIVE NEGATIVE Urine urobilinogen measurement by automated test strip (mass/volume) 4.0 mg/dL < = 1.0 Urine leukocyte esterase detection by dipstick 1+ NEGATIVE Automated urine sediment erythrocyte cou nt by microscopy (number/high power field) RARE NRG Automated urine sediment leukocyte count by microscopy (number/high power field) [HPF] NRG Bacteria detection in urine sediment by light microsco py TRACE NRG Squamous epithelial cells detection in u rine sediment by light microscopy 10-25 NRG Crystals detection in urine sediment by light microsco py NONE NRG Casts detection in urine sediment by light microscopy NONE NRG Mucus detection in urine sediment by light microscopy NEGATIVE NRG Complete urinalysis with reflex to culture YES NRG Radiology Report from [facility] on 2011 17:02:00 DIAGNOSTIC MODESTA GING REPORT [facility] - [address] [place] [address] PHONE #: [phone] FAX #: [phone] Name: DASHA CERVANTES STEFANI Loc: E.CVLO Radiology No: : 1965 Age: 47 Sex: F Status: [facility] Unit No: [id number] Phys: Jose Alfredo Horne MD Acct: [id number] Reason For Exam: CHECK VELOCITY BEFORE PROCEDUE Exam Date: 07/15/2012 EXAMS: CPT CODE: [id number] DOPPLER ABDOMINAL 31500 REASON FOR EXAM: Hypertension. Check velocity before [...] 1 Signed Report (CONTINUED) DIAGNOSTIC IMAGING REPORT [facility] - [address] [place] [address] PHONE #: [phone] FAX #: [phone] ------ Name: [facility]ES [facility] No: : 1965 Age: 47 Sex: F Status: [facility] Unit No: [id number] Phys: Jose Alfredo Horne MD Acct: [id number] Reason For Exam: CHECK VELOCITY BEFORE PROCEDUE Exam Date: 07/15/2012 EXAMS: CPT CODE: [id number] DOPPLER ABDOMINAL 55212 <Continued> CC: Jose Alfredo Taylor MD Technologist: DELVIS CARVAJAL Transcribed Date/Time: 07/15/2012 (1701)Bag Maker: IRMA Printed Date/Time: 07/15/2012 (170) BATCH NO: N/A PAGE 2 Signed Report Encounters ACCT No. Visit Date/Time Discharge Status Pt. Type Provider Facility Loc./Unit Complaint [id number] 08/31/2016 10:35:03 Document Registration [id number] 01/14/2020 11:55:00 Document Registration [id number] 11/24/2019 14:29:00 11/24/2019 23:59 :00 DIS Outpatient Lenin Smith [id number] 11/24/2019 14:27:00 11/24/2019 23:59 :00 DIS Outpatient Lenin Smith [id number] 01/03/2020 13:37:45 01/03/2020 23:59: 59 CLS Outpatient Anders Javier Fer [id number] 01/03/2020 11:20:04 01/03/2020 23:59: 59 CLS Outpatient Jose Elias Joy [id number] 12/26/2019 15:11:15 12/26/2019 23:59: 59 CLS Outpatient SHERITA CORRAL [id number] 12/11/2019 11:10:58 12/11/2019 23:59: 59 CLS Outpatient SHERITA CORRAL [id number] 11/21/2019 16:01:12 11/21/2019 23:59: 59 CLS Outpatient SHERITA CORRAL [id number] 10/27/2019 09:28:10 10/27/2019 23:59: 59 CLS Outpatient Bishop Calle [id number] 10/04/2019 11:49:20 10/04/2019 23:59: 59 CLS Outpatient Jose Elias Joy [id number] 09/15/2019 10:49:06 09/15/2019 23:59: 59 CLS Outpatient Bishop Calle [id number] 04/28/2019 08:11:31 04/28/2019 23:59: 59 CLS Outpatient Bishop Calle [id number] 04/27/2019 09:29:32 04/27/2019 23:59: 59 CLS Outpatient Bishop Calle [id number] 02/28/2019 11:41:09 02/28/2019 23:59: 59 CLS Outpatient SHERITA CORRAL [id number] 02/24/2019 08:05:42 02/24/2019 23:59: 59 CLS Outpatient SHERITA CORRAL [id number] 01/12/2019 08:50:22 01/12/2019 23:59: 59 CLS Outpatient SHERITA CORRAL [id number] 08/09/2018 11:40:46 08/09/2018 23:59: 59 CLS Outpatient Jose Elias Joy [id number] 07/28/2018 11:00:00 07/28/2018 23:59: 59 CLS Outpatient Jose Elias Joy [id number] 07/26/2018 11:12:08 07/26/2018 23:59: 59 CLS Outpatient Jose Elias Joy [id number] 06/03/2018 10:50:20 06/03/2018 23:59: 59 CLS Outpatient Jose Elias Joy [id number] 04/12/2018 15:36:27 04/12/2018 23:59: 59 CLS Outpatient SHERITA CORRAL Javier [id number] 04/07/2018 17:20:44 04/07/2018 23:59: 59 CLS Outpatient Fer Reyes-Michael [id number] 04/06/2018 09:21:15 04/06/2018 23:59: 59 CLS Outpatient Jose Elias Joy [id number] 03/25/2018 09:54:18 03/25/2018 23:59: 59 CLS Outpatient ELLIS SHERITA Herrera [id number] 10/26/2017 08:26:04 10/26/2017 23:59: 59 CLS Outpatient ELLIS SHERITA Herrera [id number] 07/07/2017 08:04:41 07/07/2017 23:59: 59 CLS Outpatient ELLIS SHERITA Herrera [id number] 07/05/2017 15:37:56 07/05/2017 23:59: 59 CLS Outpatient ELLIS SHERITA Herrera [id number] 04/29/2016 08:15:44 04/29/2016 23:59: 59 CLS Outpatient ELLIS SHERITA Herrera [id number] 04/23/2016 09:44:44 04/23/2016 23:59: 59 CLS Outpatient ELLIS SHERITA Herrera [id number] 11/12/2015 11:00:06 11/12/2015 23:59: 59 CLS Outpatient ELLIS SHERITA Herrera [id number] 09/27/2015 11:18:39 09/27/2015 23:59: 59 CLS Outpatient ELLIS SHERITA Herrera [id number] 06/11/2015 15:51:32 06/11/2015 23:59: 59 CLS Outpatient ELLIS SHERITA Herrera [id number] 09/10/2014 16:18:33 09/10/2014 23:59: 59 CLS Outpatient ELLIS SHERITA Herrera [id number] 04/19/2014 10:08:47 04/19/2014 23:59: 59 CLS Outpatient SHERITA CORRAL [id number] 04/17/2014 12:08:16 04/17/2014 23:59: 59 CLS Outpatient SHERITA CORRAL Javier [id number] 09/21/2019 13:41:15 0 23:59:59 DIS Outpatient SHAWN ALVARENGA [facility] [place] [facility] [id number] 09/21/2019 13:30:00 0 23:59:59 DIS Outpatient KASIA ANDERSON [facility] [id number] 07/11/2019 13:35:44 9 23:59:59 DIS Outpatient BROOKLYNN MARQUEZ [facility] [place] [facility] [id number] 07/11/2019 13:30:00 9 23:59:59 DIS Outpatient KASIA ANDERSON [facility] [id number] 06/27/2019 07:24:11 9 23:59:59 DIS Outpatient ELLIS, SHERITA Herrera [facility] RAD screening [id number] 03/29/2019 13:45:04 9 23:59:59 DIS Outpatient BROOKLYNN MARQUEZ [facility] [place] [facility] [id number] 03/29/2019 13:30:00 9 23:59:59 DIS Outpatient KASIA ANDERSON [facility] [id number] 11/22/2018 13:39:06 9 23:59:59 DIS Outpatient BROOKLYNN MARQUEZ [facility] [place] [facility] [id number] 11/22/2018 13:30:00 9 23:59:59 DIS Outpatient KASIA ANDERSON [facility] [id number] 10/06/2018 14:48:59 9 23:59:59 DIS Outpatient SHAWN ALVARENGA [facility] [place] [facility] [id number] 10/06/2018 13:30:00 9 23:59:59 DIS Outpatient KASIA ANDERSON [facility] [id number] 08/18/2018 13:31:16 8 23:59:59 DIS Outpatient BROOKLYNN MARQUEZ [facility] [id number] 08/18/2018 13:30:00 8 23:59:59 DIS Outpatient KASIA ANDERSON [facility] [id number] 07/14/2018 13:30:00 8 23:59:59 CLS Outpatient [facility] [id number] 06/08/2018 07:15:49 8 23:59:59 DIS Outpatient SHERITA CORRAL [facility] RAD screening [id number] 04/11/2018 13:52:41 8 23:59:59 DIS Outpatient ABU BROOKLYNN CARABALLO [facility] [place] [facility] [id number] 04/11/2018 13:29:07 8 23:59:59 DIS Outpatient KASIA ANDERSON [facility] [id number] 01/26/2018 13:28:28 8 23:59:59 DIS Outpatient ARVIND ISAACS [facility] [place] [facility] [id number] 01/26/2018 13:26:54 8 23:59:59 DIS Outpatient KASIA ANDERSON [facility] [id number] 01/12/2018 13:38:35 8 23:59:59 DIS Outpatient BROOKLYNN MARQUEZ [facility] [place] [facility] [id number] 01/12/2018 13:29:07 8 23:59:59 DIS Outpatient KASIA ANDERSON [facility] [id number] 10/25/2017 13:32:15 8 23:59:59 DIS Outpatient SHAWN ALVARENGA [facility] [place] [facility] [id number] 10/25/2017 13:30:00 8 23:59:59 DIS Outpatient KASIA ANDERSON [facility] [id number] 10/19/2017 13:30:00 8 23:59:59 CLS Outpatient [facility] [id number] 10/06/2017 13:27:55 8 23:59:59 DIS Outpatient LYLESHAWN FARRELL I Debbie [facility] [place] [facility] labt [id number] 10/06/2017 13:26:20 8 23:59:59 DIS Outpatient KASIA ANDERSON [facility] [id number] 10/05/2017 13:30:00 8 23:59:59 CLS Outpatient [facility] [id number] 09/15/2017 13:33:07 7 23:59:59 DIS Outpatient ABU BROOKLYNN CARABALLO [facility] [place] [facility] [id number] 09/15/2017 13:28:45 7 23:59:59 DIS Outpatient KASIA ANDERSON [facility] [id number] 06/21/2017 11:32:25 7 23:59:59 DIS Outpatient U BROOKLYNN CARABALLO [facility] [place] [facility] [id number] 06/21/2017 11:30:00 7 23:59:59 DIS Outpatient KASIA ANDERSON [facility] [id number] 03/30/2017 09:22:40 7 23:59:59 DIS Outpatient ABU LIBDEH, ALI J [facility] [place] [facility] [id number] 03/30/2017 09:21:24 7 23:59:59 DIS Outpatient KASIA ANDERSON [facility] [id number] 03/09/2017 10:00:00 7 23:59:59 CLS Outpatient KASIA ANDERSON [facility] [id number] 03/09/2017 09:54:58 7 23:59:59 CLS Outpatient BROOKLYNN MARQUEZ [facility] [id number] 12/01/2016 08:10:58 7 23:59:59 CLS Outpatient SHERITA CORRAL [facility] RAD screening [id number] 09/15/2016 12:01:13 6 23:59:59 CLS Outpatient SHAWN ALVARENGA [facility] [id number] 09/15/2016 12:00:00 6 23:59:59 CLS Outpatient KASIA ANDERSON [facility] [id number] 09/08/2016 08:43:52 6 23:59:59 CLS Outpatient ARVIND ISAACS [facility] [place] [facility] [id number] 09/08/2016 08:20:43 6 23:59:59 CLS Outpatient KASIA ANDERSON [facility] [id number] 01/28/2016 13:28:00 01/28/2016 13:28 :00 DIS Outpatient KASIA ANDERSON [facility] [id number] 12:01:00 2015 12:01 :00 DIS Outpatient KASIA ANDERSON [facility] [id number] 07/02/2014 09:16:00 07/02/2014 09:16 :00 DIS Outpatient KASIA ANDERSON [facility] [id number] 06/27/2014 08:29:00 06/27/2014 08:29 :00 DIS Outpatient KASIA ANDERSON [facility] [id number] 02/02/2014 08:52:00 02/02/2014 08:52 :00 DIS Outpatient KIRSTIN FISHER [facility] [id number] 12/05/2013 08:33:00 12/05/2013 08:33 :00 DIS Outpatient KASIA ANDERSON [facility] [id number] 08/19/2015 00:00:00 Document Registration [id number] 08/19/2013 00:00:00 Document Registration [id number] 08/19/2013 00:00:00 Document Registration [id number] 08/19/2013 00:00:00 Document Registration [id number] 08/19/2013 00:00:00 Document Registration [id number] 07/15/2012 17:02:00 012 23:59:59 CLS Outpatient [id number] 09/19/2019 06:06:00 Document Registration [id number] 05/26/2018 06:08:00 Document Registration
[2020-01-14 14:05] VITALS: BP 114/72
--- NOTE | 2020-01-14 14:05 | NUR ---
DASHA CERVANTES admitted to room 410-1, with an admitting diagnosis of influenza A & B, [facility] [place] , accompanied by STAFF.DASHA CERVANTES introduced to surroundings, call light, bed controls, phone, TV, temperature control, lights, meal times, smoking policy, visitor policy, side rail policy, bathrooms and showers. Patient Rights given to patient in the handbook. DASHA CERVANTES verbalizes understanding that [facility] is not responsible for the loss or damage to any personal effects or valuables that are kept in the patients posession during their hospitalization. DASHA CERVANTES verbalizes understanding of Interdisciplinary Patient Education. Patient and/or family were informed about the Rapid Response Team and its purpose.
[2020-01-14] MEDS ORDERED: ONDANSETRON 4 MG/2 ML (SDV) Z0FRAN IV PRN (14:15)
--- NOTE | 2020-01-14 14:26 | NUR ---
CR 0.80; CR CL > 60; WT 86.1 KG; VANCO 1250 MG IV GIVEN IN ER; FOLLOW WITH VANCO 1250 MG IV Q12H; TROUGH AFTER 3RD DOSE
[2020-01-14] MEDS: ENOXAPARIN 40 MG/0.4 ML (LOVENOX) SYR SC SCH (15:22)
[2020-01-14] MEDS: LACTATED RINGERS 1,000 ML IV SCH (15:22)
[2020-01-14] MEDS: fentaNYL INJECTION 100 MCG/2 ML AMP IV PRN ×3 (15:22→22:04)
[2020-01-14 16:01] VITALS: BP 97/60
[2020-01-14] MEDS ORDERED: ALPR0.25 PO (16:59)
[2020-01-14] MEDS ORDERED: DICY20TA10 PO (17:01)
[2020-01-14] MEDS ORDERED: DIPH1TAB25 PO (17:03)
[2020-01-14] MEDS ORDERED: PRED5POW11 MC (17:04)
[2020-01-14] MEDS ORDERED: BISO10TA PO (17:07)
[2020-01-14] MEDS ORDERED: HYDR12.56 PO (17:07)
[2020-01-14] MEDS ORDERED: LOSA25TA41 PO (17:08)
[2020-01-14] MEDS ORDERED: PANT20TA3 PO (17:08)
[2020-01-14] MEDS ORDERED: POTA-51 PO (17:10)
[2020-01-14] MEDS ORDERED: METH2.5T PO (17:11)
--- NOTE | 2020-01-14 20:00 | NUR ---
pt has Tylenol listed as an allergy pt states "I'm not allergic. I take Tylenol all the time, its ibuprofen I can't take because of my kidneys." this rn asked pt what the hydrocodone does to her if she takes it pt states that it makes her nauseous & vomit.
[2020-01-14 20:10] VITALS: BP 98/63
--- NOTE | 2020-01-14 20:47 | NUR ---
pt b/p 96/63 hr 75 potassium on labs 2.8-had not been replaced pt has prn fentanyl for pain this rn contacted dr. richardson about pt vitals, labs, pain management, and to express concerns about giving this pt fentanyl with hypotension, this rn was informed that the patient may have fentanyl 25 mcg iv prn Q2H during this hypotension. dr. richardson also stated that she would address other pain management options for the pt.
[2020-01-14] MEDS ORDERED: ALPRAZolam 0.25 MG (XANAX) TAB PO PRN (21:00)
[2020-01-14] MEDS ORDERED: KCL 20 MEQ TAB (K-DUR) PO ONE (21:00)
[2020-01-14] MEDS ORDERED: HYDROcodone/APAP 5 MG/325 MG (LORTAB) TAB PO PRN (21:00)
[2020-01-14] MEDS: OSELTAMIVIR 75 MG (TAMIFLU) CAPSULE PO SCH (22:05)
[2020-01-14 23:45] VITALS: BP 118/71
[2020-01-15] MEDS: oxyCODONE/APAP 5/325MG (PERCOCET 5) TABLET PO PRN ×3 (00:16→22:20)
[2020-01-15] MEDS: LACTATED RINGERS 1,000 ML IV SCH ×3 (01:27→20:15)
[2020-01-15] MEDS: VANCOMYCIN 1250 MG/NS 250 ML IVPB IV SCH ×4 (01:42→13:17)
[2020-01-15 04:05] VITALS: BP 109/65
[2020-01-15] MEDS: ACETAMINOPHEN 325 MG TABLET PO PRN (05:26)
[2020-01-15 07:47] VITALS: BP 127/78
[2020-01-15 08:49] LABS: CHLORIDE 104 MMOL/L (98-107); POTASSIUM 3.2 MMOL/L (3.6-5.0); SODIUM 141 MMOL/L (135-145)
[2020-01-15 08:50] LABS: CALCIUM 9.1 MG/DL (8.5-10.1)
[2020-01-15 08:51] LABS: GLUCOSE 122 MG/DL (70-105)
[2020-01-15 08:52] LABS: CARBON DIOXIDE 26 MMOL/L (21-32)
[2020-01-15 08:54] LABS: GFR ESTIMATED > 60
[2020-01-15 08:55] LABS: BUN/CREATININE RATIO 9
[2020-01-15 08:57] LABS: MAGNESIUM 1.6 MG/DL (1.6-2.4)
[2020-01-15] MEDS: OSELTAMIVIR 75 MG (TAMIFLU) CAPSULE PO SCH ×2 (09:18→20:20)
[2020-01-15] MEDS: fentaNYL INJECTION 100 MCG/2 ML AMP IV PRN ×5 (09:19→23:57)
--- NOTE | 2020-01-15 09:53 | Consultation - Ortho ---
Consult - Ortho Subjective Date of Exam 01/15/20 Chief Complaint Left hip pain HPI/Events since last exam Mrs. Stevens is a 54-year-old white female who woke up Wednesday morning 01/12 with a little discomfort in her left hip. She noted increasing pain throughout the day. She denies any injury or change in activity. She denies any bacterial infection in the past few weeks. She states she has had a cold. She was seen in the emergency room on Wednesday due to inability to bear weight on the left leg. CT scan showed some degenerative changes and a mild to moderate joint effusion. She also tested positive for influenza A and B. She is admitted for further workup. She does have a history of rheumatoid arthritis. She sees a paper testing supervisor in [place] comes from [place]. Prior to that she was seen a paper testing supervisor in [place]. She's had previous neck and back surgery by Dr. ISAACS. She states she's having just a little back pain now but no radiation of pain down the legs. Medical, Surgical History Reviewed and no additions or changes Social History Reviewed and no additions or changes Family History Reviewed and no additions or changes Review of Systems Reviewed and no additions or changes Allergies: Coded Allergies: hydrocodone (Verified Adverse Reaction, Mild, nausea/vomiting, 01/14/20) Home Meds Reported Medications Methotrexate Sodium (Methotrexate) 2.5 Mg Tablet, 2.5 MG PO WEEK, TAB 01/14/20 Potassium Chloride (Potassium Chloride) 20 Meq Tablet.er, 20 MEQ PO BID, TAB 01/14/20 Losartan Potassium (Losartan Potassium) 25 Mg Tablet, 25 MG PO DAILY, TAB 01/14/20 Pantoprazole Sodium (Pantoprazole Sodium) 20 Mg Tablet.dr, 20 MG PO DAILY, TAB 01/14/20 Bisoprolol Fumarate (Bisoprolol Fumarate) 10 Mg Tablet, 10 MG PO DAILY, TAB 01/14/20 Hydrochlorothiazide (Hydrochlorothiazide) 12.5 Mg Tablet, 12.5 MG PO DAILY, TAB 01/14/20 Prednisolone, Micronized (Prednisolone) 5 Gm Powder, 10 GM MC DAILY, EA 01/14/20 Diphenoxylate HCl/Atropine (Diphenoxylate-Atrop 2.5-0.025) 1 Each Tablet, 2 EACH PO QID, TAB 01/14/20 Dicyclomine HCl (Dicyclomine HCl) 20 Mg Tablet, 20 MG PO QID, TAB 01/14/20 Alprazolam (Xanax) 0.25 Mg Tablet, 0.25 MG PO BID, TAB 01/14/20 Objective Exam Constitutional: [] HEENT: [] Neck: [] Cardiovascular: [] Respiratory: [] Gastrointestinal: [] Genitourinary: [] Skin: [] Back/Spine: [No pain with palpation over the lower lumbar spine. No sciatic notch tenderness.] Extremities: [Minimal discomfort on palpation over the greater trochanter on the left. Minimal pain over the anterior hip. Increased pain over the abductor musculature left medial thigh. No pain at the knee with full range of motion. Good motion of the hip with mild pain with rotation. Negative straight leg raise. No calf tenderness and negative Homans. No pain at the ankle with full range of motion. She is neurovascularly intact left lower extremity. Right hip knee and ankle show full range of motion without pain. No calf tenderness and negative Homans. She is neurovascularly intact to the right lower extremity.] Neurologic: [] Psychiatric: [] Hematologic/lymphatic/immunologic: [] Vital Signs Vital Signs Date Time Temp Pulse Resp B/P (MAP) Pulse Ox O2 Delivery O2 Flow Rate FiO2 01/15/20 07:47 36.6 71 18 127/78 (94) 98 Room Air 01/15/20 04:05 36.5 78 16 109/65 (80) 93 Room Air 01/14/20 23:45 37.3 91 20 118/71 (87) 95 Room Air 01/14/20 20:10 Room Air 01/14/20 20:10 36.8 75 20 98/63 (75) 98 Room Air 01/14/20 16:01 37.1 73 16 97/60 (72) 94 Room Air 01/14/20 16:00 94 Room Air 01/14/20 14:05 37.1 68 16 114/72 (86) 95 Room Air 01/14/20 13:50 38.7 88 14 114/51 (91) 98 Nasal Cannula 3.00 01/14/20 12:18 38.7 01/14/20 11:24 38.7 93 14 106/84 (91) 100 Room Air I & O 01/15/20 07:00 Intake Total 3329.0 ml Output Total 750 ml Balance 2579.0 ml Lab Results Laboratory Tests 01/14/20 11:40: White Blood Count 10.2, Red Blood Count 4.15L, Hemoglobin 12.8, Hematocrit 38, Mean Corpuscular Volume 92, Mean Corpuscular Hemoglobin 31, Mean Corpuscular Hemoglobin Concent 34, Red Cell Distribution Width 14.6H, Platelet Count 256, Mean Platelet Volume 11.8H, Neutrophils (%) (Auto) 74, Lymphocytes (%) (Auto) 13, Monocytes (%) (Auto) 13H, Eosinophils (%) (Auto) 0, Basophils (%) (Auto) 0, Neutrophils # (Auto) 7.6, Lymphocytes # (Auto) 1.3, Monocytes # (Auto) 1.3H, Eosinophils # (Auto) 0.0, Basophils # (Auto) 0.0, Erythrocyte Sedimentation Rate 31H, Sodium Level 139, Potassium Level 2.8L, Chloride Level 101, Carbon Dioxide Level 26, Anion Gap 12, Blood Urea Nitrogen 8, Creatinine 0.80, Estimat Glomerular Filtration Rate > 60, BUN/Creatinine Ratio 10, Glucose Level 105, Lactic Acid Level 1.92, Calcium Level 9.6, Corrected Calcium 9.4, Total Bilirubin 1.8H, Aspartate Amino Transf (AST/SGOT) 40H, Alanine Aminotransferase (ALT/SGPT) 37, Alkaline Phosphatase 61, C-Reactive Protein High Sensitivity 8.71H, Total Protein 7.2, Albumin 4.2, Procalcitonin 0.10H 01/14/20 12:24: Urine Color YELLOW, Urine Clarity CLEAR, Urine pH 8.0, Urine Specific [place] 1.015L, Urine Protein NEGATIVE, Urine Glucose (UA) NEGATIVE, Urine Ketones NEGATIVE, Urine Nitrite NEGATIVE, Urine Bilirubin NEGATIVE, Urine Urobilinogen 4.0, Urine Leukocyte Esterase 1+H, Urine RBC (Auto) TRACE-I, Urine RBC RARE, Urine WBC 5-10H, Urine Squamous Epithelial Cells 10-25H, Urine Crystals NONE, Urine Bacteria TRACE, Urine Casts NONE, Urine Mucus NEGATIVE, Urine Culture Indicated YES 01/15/20 08:30: Sodium Level 141, Potassium Level 3.2L, Chloride Level 104, Carbon Dioxide Level 26, Anion Gap 11, Blood Urea Nitrogen 6L, Creatinine 0.70, Estimat Glomerular Filtration Rate > 60, BUN/Creatinine Ratio 9, Glucose Level 122H, Calcium Level 9.1, Magnesium Level 1.6 Microbiology 01/14/20 Influenza Types A,B Antigen (DARLENE) - Final, Complete Imaging CT scan of the pelvis was reviewed and shows degenerative changes. There is a mild effusion of the left hip. Assessment and Plan Assessment Left hip pain Problem List Unchanged Plan The above was discussed with the patient and her who is on the phone with her. After reviewing her x-rays and labs I think this is most likely a viral synovitis. She's had no previous infectious process. Did test positive for influenza. We'll proceed with x-ray left hip. If no improvement is noted over the next few days MRI left hip possible aspiration. Activities as tolerated. Final Diagonsis Viral synovitis left hip Rheumatoid arthritis Level of the visit: Level 3 DARRYL BLEVINS MD Jan 15, 2020 09:53
--- NOTE | 2020-01-15 10:40 | Diagnostic Imaging Report ---
HISTORY: Left hip pain. COMPARISON: CT from 01/14/2020. TECHNIQUE: Frontal view of the pelvis. Frontal and lateral views of the left hip. FINDINGS: No acute fracture or dislocation is seen in the pelvis or the left hip. The femoral heads are well-seated in the acetabula bilaterally. There are mild degenerative changes in the bilateral hips. There are degenerative changes of the pubic symphysis. Laminectomy changes are noted in the lower lumbar spine. IMPRESSION: Mild degenerative changes in the left hip with no acute osseous abnormality seen. Dictated by: Dictated on workstation # [id number]
[2020-01-15 12:25] VITALS: BP 101/57
[2020-01-15] MEDS: ENOXAPARIN 40 MG/0.4 ML (LOVENOX) SYR SC SCH (13:17)
[2020-01-15] MEDS: cefTRIAXone 1,000 MG/SWFI 10 ML IV PUSH IV SCH ×2 (13:17)
[2020-01-15] MEDS ORDERED: FOLI0.8C PO (13:52)
[2020-01-15] MEDS ORDERED: ETAN50PE SC (13:52)
[2020-01-15] MEDS ORDERED: CLON0.5T4 PO (13:52)
[2020-01-15] MEDS ORDERED: ALPR0.254 PO (13:52)
[2020-01-15] MEDS ORDERED: HYDR12.56 PO (13:52)
[2020-01-15] MEDS ORDERED: PRD10T PO (13:52)
--- NOTE | 2020-01-15 14:29 | NUR ---
SPOKE WITH PT (SHE HAD HER MEDS IN THE ROOM) AND WENT THRU THE EXT MED HISTORY TO COMPLETE THE MED REC PT WAS ABLE TO TELL ME HOW/WHEN SHE TAKES EACH MED AND THE INFORMATION MATCHED THE EXT MED HISTORY OTC MEDS: FOLIC ACID
[2020-01-15] MEDS ORDERED: OSLT75C PO (15:21)
[2020-01-15] MEDS ORDERED: OXYC1TAB87 PO (15:30)
[2020-01-15 16:00] VITALS: BP 122/57
--- NOTE | 2020-01-15 16:00 | NUR ---
CM/SS: Visited with pt as to plan for discharge Plan: Pt to be discharged to home with no additional services, with follow up if needed with Dr. Hernandez. Summary: Pt is able to be dismissed. This worker was asked to go and speak with pt as to her discharge per Dr. Real. Pt reports she is not ready to go home and that she was told by someone that she would be here another day or two. Pt reports having pain at a 5 at sitting and worst when she gets up to move. Pt is sitting up in the chair at this time. Dr. Real is notified. He will go and talk with pt.
[2020-01-15 19:57] VITALS: BP 121/57
--- NOTE | 2020-01-15 21:20 | History & Physical-Hospitalist ---
History of Present Illness HPI/Chief Complaint Su Stevens is a 54 year old female with PMH rheumatoid arthritis on Enbrel who presented with left hip pain. She reports worsening pain in her left hip making it difficult to ambulate. She denies any warmth or swelling. She reports that the pain is worsened by ambulation. She denies any prior history of hip pain. She denies trauma. She denies any history of joint surgery. She has a history of RA which mainly effects the joints in her hands. She denies fevers and chills. She did have a fever upon arrival though. She denies chest pain. She denies dyspnea and cough. She denies abdominal pain, nausea, and vomiting. Source: patient Exam Limitations: no limitations Date Seen 01/15/20 Time Seen by a Provider: 10:05 Attending Physician Heydi Jennings MD PCP Julio Cesar Redding Referring Physician Date of Admission Jan 14, 2020 at 12:10 Home Medications & Allergies Home Medications Reviewed patient Home Medication Reconciliation performed by pharmacy medication reconciliations pharmacy technician per diem and/or nursing. Patients Allergies have been reviewed. Allergies Allergies Coded Allergies hydrocodone (Verified Adverse Reaction, Mild, nausea/vomiting, 01/14/20) Past Zyqregq-Hesoyd-Jdreat Hx Past Med/Social Hx: Reviewed Nursing Past Med/Soc Hx Patient Social History Alcohol Use: Denies Use Recreational Drug Use: No 2nd Hand Smoke Exposure: No Physical Abuse Screen: No Sexual Abuse: No Recent Foreign Travel: No Contact w/other who traveled: No Recent Infectious Disease Expo: No Past Medical History Surgeries: Adenoidectomy, Appendectomy, Gallbladder, Hysterectomy, Orthopedic, Tonsillectomy Cardiac: High Cholesterol, Hypertension Hysterectomy Gastrointestinal: Irritable Bowel Musculoskeletal: Rheumatoid Arthritis, Chronic Back Pain Cancer: Skin What Type of Treatment Did You: Surgical Intervention Psychosocial: Depression History of Blood Disorders: No Review of Systems Constitutional: fever EENTM: no symptoms reported Respiratory: no symptoms reported Cardiovascular: no symptoms reported Gastrointestinal: no symptoms reported Genitourinary: no symptoms reported Musculoskeletal: joint pain (left hip) Skin: no symptoms reported Psychiatric/Neurological: No Symptoms Reported Physical Exam Physical Exam Vital Signs Vital Signs - First Documented 01/14/20 01/14/20 11:24 13:50 Temp 38.7 Pulse 93 Resp 14 B/P (MAP) 106/84 (91) Pulse Ox 100 O2 Delivery Room Air O2 Flow Rate 3.00 Capillary Refill : Less Than 3 SecondsLess Than 3 Seconds Height, Weight, BMI Height: '" Weight: lbs. oz. kg; 32.00 BMI Method: General Appearance: No Apparent Distress HEENT: PERRL/EOMI, Pharynx Normal Neck: Normal Inspection, Supple Respiratory: Lungs Clear, Normal Breath Sounds, No Respiratory Distress Cardiovascular: Regular Rate, Rhythm, No Edema, No Murmur Gastrointestinal: Normal Bowel Sounds, Non Tender, Soft Extremity: Normal Inspection, Normal Range of Motion; No Inflammation, No Swelling; Other (left hip pain with medial palpation and movement) Neurologic/Psychiatric: Alert, Oriented x3, No Motor/Sensory Deficits, Normal Mood/Affect Skin: Normal Color, Warm/Dry Results Results/Procedures Labs Laboratory Tests 01/15/20 08:30 01/16/20 05:45 Patient resulted labs reviewed. Imaging: Reviewed Imaging Report Assessment/Plan Admission Diagnosis intractable pain due to left hip synovitis Admission Status: Inpatient Order (span 2 midnights) Reason for Inpatient Admission: left hip synovitis requiring further evaluation and treatment Assessment and Plan Intractable pain due to left hip synovitis CT revealed left hip effusion orthopedic surgery consulted, appreciate assistance pain regimen ordered Repeat x-rays unrevealing, pain persists If pain continues will consider MRI Influenza a and B infection Continue Tamiflu Droplet precautions Rheumatoid arthritis Takes Enbrel at home DVT prophylaxis: Lovenox Diagnosis/Problems Diagnosis/Problems (1) Transient synovitis, left hip Status: Acute (2) Influenza A Status: Acute (3) Influenza B Status: Acute Clinical Quality Measures DVT/VTE Risk/Contraindication: Risk Factor Score Per Nursin RFS Level Per Nursing on Admit: 4+=Very High APOLONIA DIEGO MD Jan 15, 2020 21:20
[2020-01-16] MEDS ORDERED: TROUGH ORDER-PHARMACY XX NR
[2020-01-16] MEDS: LACTATED RINGERS 1,000 ML IV SCH ×2 (00:14→09:27)
[2020-01-16 00:15] VITALS: BP 107/63
[2020-01-16] MEDS: VANCOMYCIN 1250 MG/NS 250 ML IVPB IV SCH ×4 (01:04→13:15)
[2020-01-16] MEDS: fentaNYL INJECTION 100 MCG/2 ML AMP IV PRN ×2 (02:31→11:05)
[2020-01-16] MEDS: ACETAMINOPHEN 325 MG TABLET PO PRN (02:39)
[2020-01-16 04:00] VITALS: BP 104/62
[2020-01-16] MEDS ORDERED: MAGNESIUM 1 GM/100 ML IVPB 100 ML IV SCH (06:00)
[2020-01-16] MEDS ORDERED: POTASSIUM CL 10MEQ/50ML IVPB 50 ML IV SCH (06:00)
[2020-01-16] MEDS ORDERED: KCL 20 MEQ TAB (K-DUR) PO SCH (06:00)
[2020-01-16 06:36] LABS: CHLORIDE 105 MMOL/L (98-107); POTASSIUM 3.1 MMOL/L (3.6-5.0); SODIUM 142 MMOL/L (135-145)
[2020-01-16 06:37] LABS: CALCIUM 8.5 MG/DL (8.5-10.1)
[2020-01-16 06:38] LABS: GLUCOSE 93 MG/DL (70-105)
[2020-01-16 06:39] LABS: CARBON DIOXIDE 26 MMOL/L (21-32)
[2020-01-16 06:42] LABS: CREATININE SERUM 0.69 MG/DL (0.60-1.30); GFR ESTIMATED > 60
[2020-01-16 06:43] LABS: BUN/CREATININE RATIO 7
[2020-01-16 06:44] LABS: MAGNESIUM 1.5 MG/DL (1.6-2.4)
[2020-01-16] MEDS ORDERED: KCL 20 MEQ TAB (K-DUR) PO NR ×2 (07:00)
[2020-01-16 08:00] VITALS: BP 124/80
[2020-01-16] MEDS: oxyCODONE/APAP 5/325MG (PERCOCET 5) TABLET PO PRN ×2 (08:20→13:59)
[2020-01-16] MEDS: OSELTAMIVIR 75 MG (TAMIFLU) CAPSULE PO SCH (08:20)
--- NOTE | 2020-01-16 10:56 | Progress Note - Ortho ---
Progress Note Subjective Date of Exam 01/16/20 Chief Complaint Continued left hip pain HPI/Events since last exam Mrs. Stevens continues with her left hip pain. She states is pretty much unchanged. She's been trying to ambulate with a walker and room but is unable to bear any weight on the left lower extremity. When I saw her she was sitting in the chair and she was able to get up and stand for further evaluation of the hip. She points to the majority of the pain over the proximal medial thigh over the adductors Review of Systems Reviewed and no additions or changes Allergies: Coded Allergies: hydrocodone (Verified Adverse Reaction, Mild, nausea/vomiting, 01/14/20) Home Meds Active Scripts Oxycodone HCl/Acetaminophen (Percocet 5-325 mg Tablet) 1 Each Tablet, 1 TAB PO Q4H PRN for PAIN-MODERATE (5-7) for 7 Days, #10 TAB 0 Refills Prov:APOLONIA DIEGO MD 01/15/20 Oseltamivir Phosphate (Tamiflu) 75 Mg Cap, 75 MG PO BID for 6 Days, #12 CAP 0 Refills Prov:APOLONIA DIEGO MD 01/15/20 Reported Medications Folic Acid (Folic Acid) 0.8 Mg Capsule, 0.8 MG PO DAILY, CAP 01/15/20 Hydrochlorothiazide (Hydrochlorothiazide) 12.5 Mg Tablet, 12.5 MG PO DAILY, TAB 01/15/20 Alprazolam (Alprazolam) 0.25 Mg Tablet, 0.25 MG PO BID PRN for ANXIETY, TAB 01/15/20 Etanercept (Enbrel) 50 Mg/1 Ml Pen.injctr, 50 MG SC WEDNESDAY, EA 01/15/20 Clonazepam (Clonazepam) 0.5 Mg Tablet, 0.25-5 MG PO BID PRN for ANXIETY MDD Y, TAB 01/15/20 Prednisone (Prednisone) 10 Mg Tab, 10 MG PO DAILY, TAB 01/15/20 Methotrexate Sodium (Methotrexate) 2.5 Mg Tablet, 10 MG PO WEDNESDAY, TAB TAKES 4 (2.5MG) TABS 01/14/20 Potassium Chloride (Potassium Chloride) 20 Meq Tablet.er, 20 MEQ PO BID, TAB 01/14/20 Losartan Potassium (Losartan Potassium) 25 Mg Tablet, 25 MG PO DAILY, TAB 01/14/20 Pantoprazole Sodium (Pantoprazole Sodium) 20 Mg Tablet.dr, 20 MG PO DAILY, TAB 01/14/20 Bisoprolol Fumarate (Bisoprolol Fumarate) 10 Mg Tablet, 10 MG PO DAILY, TAB 01/14/20 Diphenoxylate HCl/Atropine (Diphenoxylate-Atrop 2.5-0.025) 1 Each Tablet, 2 EACH PO QID PRN for DIARRHEA, TAB 01/14/20 Dicyclomine HCl (Dicyclomine HCl) 20 Mg Tablet, 20 MG PO QID, TAB 01/14/20 Discontinued Reported Medications Hydrochlorothiazide (Hydrochlorothiazide) 12.5 Mg Tablet, 12.5 MG PO DAILY, TAB 01/14/20 Prednisolone, Micronized (Prednisolone) 5 Gm Powder, 10 GM MC DAILY, EA 01/14/20 Alprazolam (Xanax) 0.25 Mg Tablet, 0.25 MG PO BID, TAB 01/14/20 Objective Exam Constitutional: [] HEENT: [] Neck: [] Cardiovascular: [] Respiratory: [] Gastrointestinal: [] Genitourinary: [] Skin: [] Back/Spine: [] Extremities: [] Pain with motion left hip mostly with internal and external rotation. Majority of the pain is over the proximal medial thigh over the abductors with minimal to mild pain anterior hip joint. No fullness or redness. No increased warmth. Good motion of the knee without pain. Negative straight leg raise. Negative Homans and no calf tenderness. She's neurovascularly intact left lower extremity Neurologic: [] Psychiatric: [] Hematologic/lymphatic/immunologic: [] Vital Signs Vital Signs Date Time Temp Pulse Resp B/P (MAP) Pulse Ox O2 Delivery O2 Flow Rate FiO2 01/16/20 08:00 97 Room Air 3.00 01/16/20 08:00 36.8 78 20 124/80 (95) 97 Room Air 01/16/20 04:00 36.6 84 20 104/62 (76) 93 Room Air 01/16/20 00:15 36.7 94 20 107/63 (78) 93 Room Air 01/15/20 20:15 93 Room Air 01/15/20 19:57 36.4 78 20 121/57 (78) 96 Room Air 01/15/20 16:00 37.0 76 20 122/57 (78) 97 Room Air 01/15/20 12:25 36.6 72 18 101/57 (72) 100 Room Air I & O 01/16/20 07:00 Intake Total 2922.5 ml Output Total 3250 ml Balance -327.5 ml Lab Results Laboratory Tests 01/16/20 00:17: Vancomycin Level Trough 13.7 01/16/20 05:45: Sodium Level 142, Potassium Level 3.1L, Chloride Level 105, Carbon Dioxide Level 26, Anion Gap 11, Blood Urea Nitrogen 5L, Creatinine 0.69, Estimat Glomerular Filtration Rate > 60, BUN/Creatinine Ratio 7, Glucose Level 93, Calcium Level 8.5, Magnesium Level 1.5L Microbiology 01/14/20 Urine Culture - Final, Complete 3 or more isolates 01/14/20 Blood Culture - Preliminary, Resulted No growth 01/14/20 Influenza Types A,B Antigen (DARLENE) - Final, Complete Assessment and Plan Assessment Continued left hip pain Problem List Unchanged Plan Discussed the above with the patient. Since she continues with hip pain and is basically unchanged and recommend proceeding with an MRI. Again she has a history of rheumatoid arthritis. No injury to the hip. Final Diagonsis Left hip pain Level of the visit: Level 3 Focused Exam Lactate Level 01/14/20 11:40: Lactic Acid Level 1.92 Clinical Quality Measures DVT/VTE Risk/Contraindication: Risk Factor Score Per Nursin RFS Level Per Nursing on Admit: 4+=Very High DARRYL BLEVINS MD Jan 16, 2020 10:56
[2020-01-16] MEDS: cefTRIAXone 1,000 MG/SWFI 10 ML IV PUSH IV SCH ×2 (13:15)
--- NOTE | 2020-01-16 13:36 | Progress Note - Hospitalist ---
Subjective HPI/CC On Admission Date Seen by Provider: Jan 16, 2020 Time Seen by Provider: 10:00 Su Stevens is a 54 year old female with PMH rheumatoid arthritis on Enbrel who presented with left hip pain. She reports worsening pain in her left hip making it difficult to ambulate. She denies any warmth or swelling. She reports that the pain is worsened by ambulation. She denies any prior history of hip pain. She denies trauma. She denies any history of joint surgery. She has a history of RA which mainly effects the joints in her hands. She denies fevers and chills. She did have a fever upon arrival though. She denies chest pain. She denies dyspnea and cough. She denies abdominal pain, nausea, and vomiting. Subjective/Events-last exam she reports continued left hip pain. The pain is not bad when she is not moving but moving aggravates her pain. She has difficulty going any further then transitioning to her bedside commode. She denies any fevers or chills. She denies any chest pain or shortness of breath. She denies any abdominal pain, nausea, or vomiting. Focused Exam Lactate Level 01/14/20 11:40: Lactic Acid Level 1.92 Objective Exam Vital Signs Vital Signs Date Time Temp Pulse Resp B/P (MAP) Pulse Ox O2 Delivery O2 Flow Rate FiO2 01/16/20 08:00 97 Room Air 3.00 01/16/20 08:00 36.8 78 20 124/80 (95) Capillary Refill : Less Than 3 SecondsLess Than 3 Seconds General Appearance: No Apparent Distress, WD/WN Neck: Normal Inspection, Supple Respiratory: Lungs Clear, Normal Breath Sounds, No Respiratory Distress Cardiovascular: Regular Rate, Rhythm, No Edema, No Murmur Gastrointestinal: Normal Bowel Sounds, Non Tender, Soft Extremity: Normal Inspection, Non Tender, No Pedal Edema Neurologic/Psychiatric: Alert, Oriented x3, No Motor/Sensory Deficits, Normal Mood/Affect Skin: Normal Color, Warm/Dry Results/Procedures Lab Laboratory Tests 01/16/20 05:45 Patient resulted labs reviewed. Imaging: Reviewed Imaging Report Assessment/Plan Assessment and Plan Assess & Plan/Chief Complaint Intractable pain due to left hip synovitis CT revealed left hip effusion orthopedic surgery consulted, appreciate assistance pain regimen ordered planning for MRI today Influenza a and B infection Continue Tamiflu Droplet precautions hypokalemia Hypomagnesemia Continue to monitor and replace as needed Rheumatoid arthritis Takes Enbrel at home DVT prophylaxis: Lovenox Diagnosis/Problems Diagnosis/Problems (1) Transient synovitis, left hip Status: Acute (2) Influenza A Status: Acute (3) Influenza B Status: Acute (4) Hypokalemia Status: Acute (5) Hypomagnesemia Status: Acute Clinical Quality Measures DVT/VTE Risk/Contraindication: Risk Factor Score Per Nursin RFS Level Per Nursing on Admit: 4+=Very High APOLONIA DIEGO MD Jan 16, 2020 13:36
--- NOTE | 2020-01-16 13:49 | Diagnostic Imaging Report ---
PROCEDURE: MR imaging left lower extremity without contrast. TECHNIQUE: Multiplanar, multisequence non contrast enhanced MR imaging of the left lower extremity was accomplished. INDICATION: Left hip pain. Unable to extend left leg. No known injury. COMPARISON: Radiographs from 01/15/2020. FINDINGS: No acute fracture is seen in the left hip. The femoral head is well-seated in the acetabulum. There is a large left hip joint effusion and a small right hip joint effusion. There is a superior left paralabral cyst which measures 2.9 x 2.8 x 1.2 cm in size. There is a tear in the superior left acetabular labrum. There is motion artifact on multiple sequences. There is moderate intramuscular and deep fascial edema about the left adductor musculature as well as the proximal left quadriceps musculature and the left gluteus minimus. There is mild edema in the quadratus femoris bilaterally which can be seen with ischiofemoral impingement. The iliopsoas tendons are intact bilaterally. A small amount of increased fluid is seen in the left iliopsoas bursa. The bilateral gluteus medius and minimus tendons appear to be intact. There is mild tendinopathy in the left hamstring tendon origin but no significant tear is seen. No fluid collections are seen. No free fluid is seen in the pelvis. No lymphadenopathy is seen. IMPRESSION: 1. Nonspecific large left hip joint effusion. Consider aspiration for further evaluation, particularly if there is clinical concern for infection. 2. Deep soft tissue edema about the left hip. This could be due to strain or may be inflammatory or infectious. 3. No acute osseous abnormality is seen in the pelvis or left hip. Dictated by: Dictated on workstation # [id number]
[2020-01-16 16:17] VITALS: BP 124/80
--- NOTE | 2020-01-17 13:42 | Discharge Summary ---
Discharge Summary Hospital Course Was the Problem List Reviewed?: Yes Problems/Dx: (1) Transient synovitis, left hip Status: Acute (2) Influenza A Status: Acute (3) Influenza B Status: Acute (4) Hypokalemia Status: Acute (5) Hypomagnesemia Status: Acute Hospital Course Date of Admission: Jan 14, 2020 at 12:10 Admission Diagnosis : Transient synovitis of the left hip Family Physician/Provider: Julio Cesar Redding Date of Discharge: 01/17/20 Discharge Diagnosis: Transient synovitis in the last hip Hospital Course: Addison Ribeiro is a 54-year-old female who presented with left hip pain and was admitted with transient synovitis of the left hip. She was also febrile on arrival and was found to have influenza A and B. She was started on Tamiflu for this. Orthopedic surgery was consulted for her hip effusion and this was thought to likely be a viral synovitis due to her influenza infection. She is being referred as an outpatient to [address] to a hip specialist for further evaluation. She was given a course of Tamiflu for influenza and a small supply of pain medicine for her hip pain. Labs and Pending Lab Test: Microbiology 01/14/20 Urine Culture - Final, Complete 3 or more isolates 01/14/20 Blood Culture - Preliminary, Resulted No growth 01/14/20 Influenza Types A,B Antigen (DARLENE) - Final, Complete Home Meds Active Percocet 5-325 mg Tablet (Oxycodone HCl/Acetaminophen) 1 Each Tablet 1 Tab PO Q4H PRN 7 Days Tamiflu (Oseltamivir Phosphate) 75 Mg Cap 75 Mg PO BID 6 Days Reported Folic Acid 0.8 Mg Capsule 0.8 Mg PO DAILY Hydrochlorothiazide 12.5 Mg Tablet 12.5 Mg PO DAILY Alprazolam 0.25 Mg Tablet 0.25 Mg PO BID PRN Enbrel (Etanercept) 50 Mg/1 Ml Pen.injctr 50 Mg SC WEDNESDAY Clonazepam 0.5 Mg Tablet 0.25-5 Mg PO BID PRN MDD Y Prednisone 10 Mg Tab 10 Mg PO DAILY Methotrexate (Methotrexate Sodium) 2.5 Mg Tablet 10 Mg PO WEDNESDAY TAKES 4 (2.5MG) TABS Potassium Chloride 20 Meq Tablet.er 20 Meq PO BID Losartan Potassium 25 Mg Tablet 25 Mg PO DAILY Pantoprazole Sodium 20 Mg Tablet.dr 20 Mg PO DAILY Bisoprolol Fumarate 10 Mg Tablet 10 Mg PO DAILY Diphenoxylate-Atrop 2.5-0.025 (Diphenoxylate HCl/Atropine) 1 Each Tablet 2 Each PO QID PRN Dicyclomine HCl 20 Mg Tablet 20 Mg PO QID Assessment/Pt Instructions Take medications as prescribed. Follow up with Dr. Hernandez as scheduled. Discharge Planning: <30 minutes discharge planning Discharge Instructions Discharge Diet: No Restrictions Activity as Tolerated: Yes Discharge Physical Examination Vital Signs Vital Signs Date Time Temp Pulse Resp B/P (MAP) Pulse Ox O2 Delivery O2 Flow Rate FiO2 01/16/20 16:17 36.8 78 20 124/80 97 Room Air 3.00 Allergies: Coded Allergies: hydrocodone (Verified Adverse Reaction, Mild, nausea/vomiting, 01/14/20) Discharge Summary Date of Admission Jan 14, 2020 at 12:10 Date of Discharge Jan 16, 2020 at 16:18 Discharge Date: Jan 16, 2020 Discharge Time: 16:18 Admission Diagnosis intractable pain due to left hip synovitis Discharge Diagnosis Intractable pain due to left hip synovitis, Influenza a and B infection (1) Transient synovitis, left hip Status: Acute (2) Influenza A Status: Acute (3) Influenza B Status: Acute (4) Hypokalemia Status: Acute (5) Hypomagnesemia Status: Acute Clinical Quality Measures DVT/VTE Risk/Contraindication: Risk Factor Score Per Nursin RFS Level Per Nursing on Admit: 4+=Very High APOLONIA DIEGO MD Jan 17, 2020 13:35
== END 2020-01-16 16:18 | disposition home or self-care (01) | DRG 866 ==
LOC: EDUNIT# 11:15 → ER 11:17 → 4TH 12:10
PROVIDERS: ADMIT Family Medicine; ATTEND Family Medicine
DX: J10.89 Influenza due to other identified influenza virus with other manifestations (principal); M65.15 Other infective (teno)synovitis, hip; M06.9 Rheumatoid arthritis, unspecified; M16.12 Unilateral primary osteoarthritis, left hip; E78.00 Pure hypercholesterolemia, unspecified; I10 Essential (primary) hypertension; K58.9 Irritable bowel syndrome, unspecified; F32.9 Major depressive disorder, single episode, unspecified; E87.6 Hypokalemia; E83.42 Hypomagnesemia; Z90.710 Acquired absence of both cervix and uterus; Z90.49 Acquired absence of other specified parts of digestive tract; Z90.89 Acquired absence of other organs
CPT/HCPCS: 36415; 71045; 72193; 80048; 80053; 80202; 81000; 83605; 83735; 84145; 85025; 85652; 86141; 87040; 87088; 87804

== ENCOUNTER → 2020-01-19 | Outpatient (CLI) | payer BC ==
[~2020-01-19] MED LIST: ALPR0.25 PO; ALPR0.254 PO; BISO10TA PO; CLON0.5T4 PO; DICY20TA10 PO; DIPH1TAB25 PO; ETAN50PE SC; FOLI0.8C PO; HYDR12.56 PO; LOSA25TA41 PO; METH2.5T PO; OSLT75C PO; OXYC1TAB87 PO; PANT20TA3 PO; POTA-51 PO; PRD10T PO; PRED5POW11 MC
== END ==
LOC: LABNPT 13:30
PROVIDERS: ATTEND Internal Medicine
DX: M06.9 Rheumatoid arthritis, unspecified (principal)
CPT/HCPCS: 87635

== ENCOUNTER → 2020-01-23 | Outpatient (CLI) | payer BC | LOC: ORTHO 12:47 | PROVIDERS: ATTEND Orthopaedic Surgery | DX: M67.352 Transient synovitis, left hip (principal) | CPT/HCPCS: 99203 ==

== ENCOUNTER → 2021-08-22 | Outpatient (CLI) | payer BC ==
[~2021-08-22] MED LIST changes: +ALPR.25T PO; -ALPR0.254 PO; -BISO10TA PO; +BISO10TA6 PO; +DICY20TA PO; -DICY20TA10 PO; +PANT20TA18 PO; -PANT20TA3 PO
--- NOTE | 2021-08-22 16:38 | Diagnostic Imaging Report ---
PROCEDURE: MRI lumbar spine. TECHNIQUE: Multiplanar, multisequence MRI of the lumbar spine was performed without contrast. INDICATION: Prior surgery. Increasing chronic back pain EXAMINATION: Lumbar spine MRI 08/22/2021 COMPARISON: None FINDINGS: There are no significant subluxations with normal height and alignment of the vertebral bodies. The tip of the conus is unremarkable in appearance and location. L1-L2: There is intervertebral space narrowing, disc desiccation and a broad-based right paracentral bulging disc with bilateral facet and ligamentum flavum hypertrophy. There is secondary mild central stenosis with narrowing of the right lateral recess. There is mild left and moderate to severe right neural foraminal narrowing. L2-L3: There is intervertebral disc space narrowing, disc desiccation and a broad-based bulging disc with bilateral facet and ligamentum flavum hypertrophy. There is secondary mild central stenosis with narrowing of the right lateral recess. There is moderate right and mild left neural foraminal stenosis. L3-L4: There is intervertebral disc space narrowing, disc desiccation and a broad-based bulging disc with bilateral facet hypertrophy. There is moderate central stenosis. There is severe left and moderate to severe right neural foraminal stenosis. L4-L5: There is intervertebral disc space narrowing, disc desiccation and a broad-based bulging disc containing a diffuse posterior annular tear. There is bilateral facet hypertrophy with laminectomy changes posteriorly. There is mild central narrowing with narrowing of the lateral recesses bilaterally. There is severe left and moderate to severe right neural foraminal stenosis. L5-S1: There is intervertebral disc space narrowing, disc desiccation and a central bulging disc with a annular tear present. There is bilateral facet hypertrophy with laminectomy changes present. There is no significant central stenosis. There is narrowing of the left lateral recess with likely encroachment upon the transiting left nerve root. There is severe left and moderate right neural foraminal stenosis. The visualized intra-abdominal structures demonstrate no evidence for an acute abnormality. IMPRESSION: 1. Multilevel diffuse degenerative disease and postoperative changes as discussed above. Dictated by: Dictated on workstation # [id number]
== END ==
LOC: RAD 13:45
PROVIDERS: ATTEND Physician Assistant
DX: M51.37 Other intervertebral disc degeneration, lumbosacral region (principal); M51.27 Other intervertebral disc displacement, lumbosacral region; M47.817 Spondylosis without myelopathy or radiculopathy, lumbosacral region; M48.07 Spinal stenosis, lumbosacral region; Z98.890 Other specified postprocedural states
CPT/HCPCS: 72148